=== PATIENT | female | born 1935 | race Caucasian/White ===

== ENCOUNTER 2020-07-29 08:49 | Emergency (ER) | payer MEDICARE, OTHER, SELFPAY ==
[2020-07-29 09:13] VITALS: BP 142/104; PULSE 64; PULSE 80; RESP 16; TEMP 36.4; O2SAT 100; O2SAT 98; BMI 36.9
--- NOTE | 2020-07-29 09:21 | CT_ITS ---
EXAMINATION: CT CERVICAL SPINE WITHOUT CONTRAST CLINICAL INFORMATION: Neck pain. Evaluate for arthritis or fracture. COMPARISON: Previous CT scans March and May 2020 TECHNIQUE: Axial images through the cervical spine without contrast. Sagittal and coronal reconstructions on the technologist workstation were performed. Patient dose 4 3 7 mg/cm. This CT examination was performed using dose optimization techniques as appropriate, variously including the following: *Automated exposure control *Adjustment of mA and/or kV according to patient size (this includes techniques or standardized protocols for targeted exams where dose is matched to indication/reason for exam; i.e. extremities or head) *Use of iterative reconstruction technique DLP: 437 mGy-cm FINDINGS: There is increased cervical kyphosis. No fracture or dislocation is seen. There is a posterior element fusion with cerclage wires at C4, C5 and C6. There is ankylosis and bony fusion at C4-C5, C5-C6 and C6-C7. There is mild 2 mm anterior subluxation of C2 with respect to C3 and C3 with respect to C4 that is unchanged. There is degenerative spondylosis and degenerative disc disease at C2-C3, C3-C4, and C7-T1. There are degenerative changes at the C1 dens articulation. Prevertebral soft tissues are normal. There is shotty cervical lymphadenopathy. The right jugular vein is prominent. There is medial course of the internal carotid arteries. The visualized lung apices are clear. IMPRESSION: Postsurgical and degenerative changes similar to recent exams.
--- NOTE | 2020-07-29 09:21 | XR_ITS ---
EXAMINATION: XR THORACIC SPINE CLINICAL INFORMATION: Upper back pain. COMPARISON: CT cervical spine 06/16/2020 TECHNIQUE: 3 views of the thoracic spine were obtained. FINDINGS: There is normal thoracic segmentation with 12 rib-bearing thoracic vertebrae of normal height and normal thoracic kyphosis. There are multilevel degenerative disc changes with upper and lower thoracic disc narrowing and vertebral spurring. There is no vertebral compression, spondylolisthesis, destructive process, spondylolisthesis, or paraspinal soft tissue swelling. IMPRESSION: Multilevel degenerative disc changes. No thoracic vertebral compression, spondylolisthesis, destructive process.
[2020-07-29] MEDS: oxyCODONE HCl Immed Release 5 MG TABLET PO (09:30)
[2020-07-29] MEDS: Cyclobenzaprine HCl 5 MG TABLET PO (09:30)
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
--- NOTE | 2020-07-29 10:00 | PC.NURSE ---
PT ALERT AND ORIENTED X4. SKIN WPD. RESPIRATIONS EVEN AND NON LABORED. REPORTS NECK PAIN HAS DECREASED FROM 10/10 TO 3/10 POST FLEXERIL AND OXYCODONE. DENIES ANY OTHER PAIN OR DISCOMFORT. AWAITING CT SCAN.
[2020-07-29 10:24] VITALS: BP 126/54; PULSE 64; RESP 14; O2SAT 97
--- NOTE | 2020-07-29 10:45 | PC.NURSE ---
PT OFF TO CT
[2020-07-29 11:56] VITALS: BP 149/59; PULSE 67; RESP 16; TEMP 36.7; O2SAT 95
== END 2020-07-29 13:29 | disposition home or self-care (01) ==
PROVIDERS: Emergency Provider Emergency Medicine; PCP Internal Medicine
DX: M54.12 Radiculopathy, cervical region (principal); T20.27XA Burn of second degree of neck, initial encounter; T31.0 Burns involving less than 10% of body surface; X11.8XXA Contact with other hot tap-water, initial encounter; I10 Essential (primary) hypertension; Y93.9 Activity, unspecified; Y92.019 Unspecified place in single-family (private) house as the place of occurrence of the external cause; Y99.9 Unspecified external cause status
CPT/HCPCS: 16020; 72072; 72125; 90471; 90715; 99284

== ENCOUNTER → 2021-01-01 10:56 | Outpatient (BNVA) | payer MEDICARE, SELFPAY | PROVIDERS: PCP Internal Medicine; Visit Provider Anesthesiology | DX: M96.1 Postlaminectomy syndrome, not elsewhere classified (principal); M54.2 Cervicalgia; M47.812 Spondylosis without myelopathy or radiculopathy, cervical region; G89.4 Chronic pain syndrome; Z79.899 Other long term (current) drug therapy | CPT/HCPCS: 99202 ==

== ENCOUNTER 2021-01-20 13:36 | Outpatient (REF) | payer MEDICARE, OTHER, SELFPAY ==
[2021-01-20 14:14] LABS: Alanine Aminotransferase 12 U/L (0-31); Albumin Level 4.5 g/dL (3.5-5.0); Alkaline Phosphatase 71 U/L (39-117); Anion Gap 14 (12-20); Aspartate Amino Transferase 13 U/L (5-31); Bilirubin Total 0.4 mg/dL (0.0-1.0); Blood Urea Nitrogen 22 mg/dL (9-16); Calcium 9.5 mg/dL (8.4-10.2); Carbon Dioxide 25 mmol/L (22-29); Chloride 101 mmol/L (96-108); Cholesterol 182 mg/dL; Estimated Glomerular Filt Rate > 60; Glucose Random 117 mg/dL (60-115); HDL Cholesterol 76 mg/dL; LDL Cholesterol Calculated 81 mg/dl; Potassium 4.3 mmol/L (3.3-5.1); Sodium 136 mmol/L (135-145); Total Protein 7.8 g/dL (6.5-8.0); Triglycerides 127 mg/dL
[2021-01-20 14:33] LABS: Thyroid Stimulating Hormone 6.55 uIU/mL (0.32-4.0)
== END 2021-01-20 13:37 | disposition home or self-care (01) ==
LOC: HO.LNP 13:36
PROVIDERS: Visit Provider Internal Medicine
DX: E03.9 Hypothyroidism, unspecified (principal); F32.89 Other specified depressive episodes; G89.4 Chronic pain syndrome; I10 Essential (primary) hypertension
CPT/HCPCS: 80053; 80061; 84443

== ENCOUNTER 2021-01-22 13:49 | Emergency (ER) | payer MEDICARE, OTHER, SELFPAY ==
[2021-01-22 14:11] VITALS: BP 111/47; PULSE 77; RESP 18; TEMP 36.6; O2SAT 99; BMI 38.0
--- NOTE | 2021-01-22 15:03 | ED_ITS ---
HPI - General Adult General Chief complaint: Neck Pain/Injury Stated complaint: NECK PAIN Time Seen by Provider: 01/22/21 14:28 Source: patient Mode of arrival: ambulatory Limitations: no limitations History of Present Illness HPI narrative: 85-year-old female with a history of chronic neck pain with chronic pain syndrome who is brought to emergency department by her [id number] for evaluation of neck pain. The patient states that she has been having neck pain since 1994 after she had a neck surgery. She states that over the past 2 weeks the pain has become severe. She states that the pain starts at the bottom her neck and radiates the top of her head. She describes the pain as a constant, dull ache which is worse with movement. She denies any numbness or weakness of her extremities. She denied fever or chills. She states that she has been taking her medications as prescribed by her doctor with no relief of her pain. The patient's [id number], Fiona told me that the patient has not been eating and drinking well over the past 2 weeks. Her daughter was concerned the patient may be depressed. The patient did make statements like she wants to however when I asked the patient she denies being suicidal at this time. The [id number] states that the patient been taking more lorazepam and prescribe since she ran out of her prescription early and cannot get her prescription refilled who later in the month. The patient apparently did have a recent ER visit at [facility] where the patient had CT scan and MRI of the neck and there was no acute process found. Related Data Previous Rx's Medication Instructions Recorded cephalexin [Keflex] 500 mg PO Q6H #28 cap 07/29/20 oxycodone-acetaminophen [Percocet] 1 tab PO Q8H PRN #15 tab 07/29/20 oxycodone-acetaminophen [Percocet] 1 tab PO Q8H PRN #15 tab 07/29/20 prednisone 40 mg PO DAILY #10 tab 07/29/20 silver sulfadiazine [Silvadene] 1 applic TOPICAL BID #50 g 07/29/20 lidocaine 1 patch TOPICAL DAILY #15 ea 01/22/21 Allergies Allergy/AdvReac Type Severity Reaction Status Date / Time No Known Allergies Allergy Verified 01/01/21 11:12 Review of Systems Review of Systems: Yes all other systems are reviewed and are negative PMFSH Past Medical History [facility] Narrative: The patient lives alone at home. She has 2 sons and 2 daughter in laws that check in on her frequently. The patient denies tobacco, alcohol and drug use. Medical History Cervicalgia Chronic neck pain Chronic pain syndrome Hypertension Postlaminectomy syndrome of cervical region Spondylosis of cervical joint without myelopathy Surgical History H/O neck surgery Social History Social History Alcohol intake: never Smoking Status: Never smoker Advance Directives: No Advance Directives Information Provided: No Physical Exam Vital Signs: Vital Signs: Last Vital Signs Temp 97.8 F 01/22/21 14:11 Pulse 77 01/22/21 14:11 Resp 18 01/22/21 14:11 BP 111/47 L 01/22/21 14:11 Pulse Ox 99 01/22/21 14:11 Body Mass Index 38.0 Const: General: cooperative Orientation/consciousness: oriented to person and oriented to place Limitations: no limitations HENMT: Head: Yes normal to inspection, Yes normocephalic and Yes atraumatic Ears: external ears normal General nose exam: Normal external nose present Face and sinus: Yes normal facial exam Mouth: Normal oral and palatal mucosa present Throat: Yes posterior oropharynx normal Eyes: Periorbital: periorbital findings normal Eyelids: Yes eyelids normal Conjunctivae: conjunctivae normal Sclerae: sclerae normal Corneas: corneas normal Pupils: Equal, round and reactive pupils present Direct Ophthalmoscopy: normal light reflex Neck: Neck: Yes full ROM, Yes no lymphadenopathy, Yes no meningeal signs, Yes trachea midline, Yes supple and Yes tender (Trapezius muscles bilaterally, no spasm) Chest: Chest palpation & inspection: normal inspection of the chest and normal palpation of entire chest wall Resp: Effort & Inspection: normal respiratory effort and able to speak in complete sentences Auscultation: clear to auscultation bilaterally Cardio: Rate: regular rate Rhythm: regular rhythm Heart sounds: S1 normal heart sound present, S2 normal heart sound present and no murmurs GI: Inspection: Yes normal to inspection Palpation (GI): Soft to palpation, nontender, no guarding, not rigid and No hepatosplenomegaly present : General: Yes no CVA tenderness Back/Spine/Pelvis: Back: no CVA tenderness Cervical Spine: normal cervical lordosis Thoracic/Lumbar Spine: thoracic and lumbar spine normal to inspection Skin: Lesions: no lesions Rashes: no rashes Wounds: no wounds Neuro: General: oriented to person, oriented to place and no meningeal signs Cranial nerves: Yes CN's II-XII intact bilaterally and Yes Equal, round and reactive pupils present Cognition (Neuro): normal cognition Motor exam (neuro): 5/5 motor strength present throughout Extrem: General: Yes normal to inspection and Yes full ROM Psych: Appearance: well kempt Mental Status: mental status grossly normal Speech and movement: Normal speech and movement present Affect: normal affect Attitude: cooperative Thought process: Normal thought process present Thought content: Normal thought content present Course Course Course Narrative: 85-year-old female with a history of chronic back pain presents emergency department for evaluation of increased neck pain x2 weeks. Physical examination did reveal tenderness with palpation of the trapezius muscles bilaterally otherwise was unremarkable. The patient's presentation is consistent with her chronic pain syndrome. I did discuss this with the patient and with the patient's daughter. Patient was advised to continue taking her pain medications as prescribed by her doctor. She was given a prescription for lidocaine patch to apply to her neck to see if this helps improve her pain. Patient will be discharged home and was advised to follow-up with her PCP for re-evaluation. Discharge Plan Discharge Clinical Impression: Acute neck pain, Chronic cervical pain Patient Disposition: Home, Self-Care Instructions: Acute Neck Pain (ED) Additional Instructions: Neck Pain Discharge Instructions: Take Tyleno(acetaminophen) 500 mg pills, 2 pills every 4 hours as needed for p ain. Continue taking your other pain medications and muscle relaxants as prescribed by your doctor. Apply ice for 15 minutes to the area that hurts on your back, then apply a heating a pad on low for 15 minutes. Do this 4-6 times a day to help reduce the pain in your back. Continue with normal activities as tolerated since staying in bed and not moving around will make your pain worse. Apply the lidocaine patches once a day to the neck in the area where it hurts, leave the patch on for 12 hours and remove it. Please return to the Emergency Department or see your doctor immediately if your symptoms get worse or if you develop any new symptoms that are concerning you. Follow up with your doctor in 2 day. Please read the other printed discharge instructions on neck pain. Prescriptions: New lidocaine 5 % adhesive patch,medicated 1 patch topical DAILY Qty: 15 RF: 0 No Action cephalexin [Keflex] 500 mg capsule 500 mg PO Q6H Qty: 28 RF: 0 oxycodone-acetaminophen [Percocet] 5-325 mg tablet 1 tab PO Q8H PRN (Reason: pain) Qty: 15 RF: 0 prednisone 20 mg tablet 40 mg PO DAILY Qty: 10 RF: 0 oxycodone-acetaminophen [Percocet] 5-325 mg tablet 1 tab PO Q8H PRN (Reason: pain) Qty: 15 RF: 0 silver sulfadiazine [Silvadene] 1 % cream 1 applic topical BID Qty: 50 RF: 0
== END 2021-01-22 17:11 | disposition home or self-care (01) ==
PROVIDERS: Emergency Provider Emergency Medicine Emergency Medical Services; PCP Internal Medicine
DX: S16.1XXA Strain of muscle, fascia and tendon at neck level, initial encounter (principal); M54.2 Cervicalgia; G44.309 Post-traumatic headache, unspecified, not intractable; G89.4 Chronic pain syndrome; X58.XXXA Exposure to other specified factors, initial encounter; Y93.9 Activity, unspecified; Y92.9 Unspecified place or not applicable; Y99.9 Unspecified external cause status; Z79.899 Other long term (current) drug therapy
CPT/HCPCS: 99283

== ENCOUNTER 2021-03-11 06:18 | Outpatient (REF) | payer MEDICARE, MEDICAID, SELFPAY ==
--- NOTE | ~2021-03-11 | FL_ITS ---
EXAMINATION: XR FLUOROSCOPY WITH IMAGES CLINICAL INFORMATION: M47.812 - Spondylosis without myelopathy or radiculopathy COMPARISON: CT cervical spine 07/29/2020 TECHNIQUE: Fluoroscopy performed by Perla Meza NP. Fluoroscopy time: 0.5 minutes DAP: 2.69 Gycm2 Images: 6 FINDINGS: There are 3 spinal needles overlying left lateral masses and 3 spinal needles overlying right lateral masses in region of C4-C6. There is contrast in the respective nerve sheaths with some transforaminal epidural extension. No visible vascular communication. There are postsurgical changes again noted with cerclage wire overlying the posterior elements C4-C6. FL/FL guidance in treatment room IMPRESSION: Fluoroscopy for pain management procedures.
== END 2021-03-11 06:19 | disposition home or self-care (01) ==
LOC: HO.RADIR 06:18
PROVIDERS: Visit Provider Anesthesiology
DX: M47.812 Spondylosis without myelopathy or radiculopathy, cervical region (principal); M96.1 Postlaminectomy syndrome, not elsewhere classified; M54.2 Cervicalgia; G89.4 Chronic pain syndrome
CPT/HCPCS: 64490; 64491; 64492; J1100; J3300; Q9967

== ENCOUNTER → 2021-04-14 09:23 | Outpatient (BNVA) | payer MEDICARE, SELFPAY | PROVIDERS: PCP Internal Medicine; Visit Provider Anesthesiology | DX: M96.1 Postlaminectomy syndrome, not elsewhere classified (principal); M54.2 Cervicalgia; M47.812 Spondylosis without myelopathy or radiculopathy, cervical region; G89.4 Chronic pain syndrome | CPT/HCPCS: 99212 ==

== ENCOUNTER 2021-05-20 06:10 | Outpatient (REF) | payer MEDICARE, OTHER, SELFPAY ==
--- NOTE | ~2021-05-20 | FL_ITS ---
EXAMINATION: XR FLUOROSCOPY WITH IMAGES CLINICAL INFORMATION: M47.812 - Spondylosis without myelopathy or radiculopathy COMPARISON: CT cervical spine 07/29/2020 TECHNIQUE: Fluoroscopy performed by Perla Meza NP. Fluoroscopy time: 0.8 minutes DAP: 2.97 Gycm2 Images: 6 FINDINGS: There are spinal needles overlying the bilateral lower 3 cervical neural foramen with some contrast in the paraspinal soft tissues and nerve sheaths. No vascular communication. Again, there are post surgical changes with wiring posterior elements. FL/FL guidance in treatment room IMPRESSION: Fluoroscopy for pain management procedures.
== END 2021-05-20 06:11 | disposition home or self-care (01) ==
LOC: HO.RADIR 06:10
PROVIDERS: Visit Provider Anesthesiology
DX: M47.812 Spondylosis without myelopathy or radiculopathy, cervical region (principal); M96.1 Postlaminectomy syndrome, not elsewhere classified; M54.2 Cervicalgia; G89.4 Chronic pain syndrome
CPT/HCPCS: 64490; 64491; J3300; Q9967

== ENCOUNTER 2021-05-20 11:53 | Emergency (ER) | payer MEDICARE, OTHER, SELFPAY ==
[2021-05-20 12:05] VITALS: BP 156/70; PULSE 76; RESP 14; TEMP 36.6; O2SAT 99; BMI 34.2
--- NOTE | 2021-05-20 12:20 | ED.GENADULT ---
HPI - General Adult General Chief complaint: General Medical Stated complaint: depression Time Seen by Provider: 05/20/21 12:20 Source: patient Mode of arrival: other (from short stay surgery) Limitations: other (poor historian) History of Present Illness HPI narrative: chronic neck pain scheduled for cervical medial branch block told staff she had increased depression because her pain is getting bad, patient reports if she doesn't have the procedure she will feel like she can't go on with the pain, no active plan, reportedly had bugs on her and was showered - patient denies this to me but obviously HC workers saw it, she lives alone complaint: depression Onset (ago): year(s) Location: neck Severity: moderate Quality: stabbing Pain Consistency: constant Relieving factors: none Exacerbating factors: movement Associated symptoms: other (depressed due to her chronic pain) Treatments prior to arrival: none Related Data Previous Rx's Medication Instructions Recorded cephalexin 500 mg capsule (Keflex) 500 mg PO Q6H #28 cap 07/29/20 oxycodone-acetaminophen 5 mg-325 1 tab PO Q8H PRN #15 tab 1012/20 mg tablet (Percocet) oxycodone-acetaminophen 5 mg-325 1 tab PO Q8H PRN #15 tab 10/12/20 mg tablet (Percocet) prednisone 20 mg tablet 40 mg PO DAILY #10 tab 07/29/20 silver sulfadiazine 1 % topical 1 applic TOPICAL BID #50 g 07/29/20 cream (Silvadene) lidocaine 5 % topical patch 1 patch TOPICAL DAILY #15 ea 01/22/21 Allergies Allergy/AdvReac Type Severity Reaction Status Date / Time No Known Allergies Allergy Verified 04/14/21 09:44 Review of Systems Review of Systems: Constitutional : No Weight loss, No Fever, No Chills, No Fatigue, No Malaise ENT/Mouth : No sore throat, No Rhinorrhea, pos neck pain Eyes: No Eye Pain, No Swelling, No Redness Cardiovascular : No Chest Pain, No SOB, No Dyspnea on Exertion, No Orthopnea, No Edema, No Palpitations Respiratory : No Cough, No Sputum, No Wheezing Gastrointestinal : No Nausea, No Vomiting, No Diarrhea, No Constipation, No abdominal Pain, No Hematochezia, No Melena Genitourinary : No Dysuria, No Urinary Frequency, No Hematuria, Musculoskeletal : No joint pain, No Myalgias, No Joint Swelling Skin : No Skin Lesions, No rash Neuro : No Weakness, No Numbness, No Dizziness, No Headache Psych : No Anxiety/Panic, pos Depression Heme/Lymph: No Bruising, No Bleeding,No Lymphadenopathy Endocrine : No Polyuria, No Polydipsia All other systems reviewed and are negative [facility] Past Medical History Attestation statement: The following information was validated with the patient. Medical History Cervicalgia Chronic neck pain Chronic pain syndrome Hypertension Postlaminectomy syndrome of cervical region Spondylosis of cervical joint without myelopathy Surgical History H/O neck surgery Social History Social History (Updated 05/20/21 @ 12:34 by Rekha Cruz DO) Alcohol intake: never Patient Tobacco Use Status: Never used Tobacco Advance Directives: No Advance Directives Information Provided: Yes Physical Exam Vital Signs: Vital Signs: Last Vital Signs Temp 98.2 F 05/20/21 12:41 Pulse 71 05/20/21 12:41 Resp 15 05/20/21 12:41 BP 141/70 H 05/20/21 12:41 Pulse Ox 100 05/20/21 12:41 Body Mass Index 34.2 Appearance: Alert. Oriented X3. No acute distress. Anxious Eyes: Pupils equal, round and reactive to light. ENT: Pharynx normal. Neck: Normal inspection. Neck supple. CVS: Normal heart rate and rhythm. Pulses normal. Respiratory: No respiratory distress. Breath sounds normal. Abdomen: Soft and non-tender. Skin: Skin warm and dry. Normal skin color. Normal skin turgor. Extremities: No lower extremity edema. No calf ttp Neuro: Oriented X 3. No motor deficit. No sensory deficit. 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 supervisor possible fleas and ants I DO NOT BELIEVE SHE IS SUICIDAL SHE STATES SHE IS JUST UPSET AND DEPRESSED BECAUSE SHE WANTS HER PAIN TREATED, SHE HAS NO PLAN, SHE WANTS HER PROCEDURE DONE, I DO NOT FEEL SHE IS GOING TO KILL HERSELF, HER SKIN HAS NO BITES AND SHE IS NEUROLOGICALLY INTACT Medical Decision Making [facility] Narrative Medical decision making narrative: 85 yo female with chronic neck pain due to branch block today brought from short stay due to bug infestation which I cannot see post shower and clothes are bagged, no wounds obviously, also stated she was depressed due to her pain but meant to say she didn't want to live with the pain, she has no active suicide plan, CM/CARE team and RN pattern chain maker supervisor involved I do not feel she is actively suicidal on presentation she is GCS 15. Discharge Plan Discharge Clinical Impression: Cervicalgia Patient Disposition: Home, Self-Care Instructions: Chronic Neck Pain (DC) Additional Instructions: return to ED for any worsening symptoms or concerns Prescriptions: No Action cephalexin [Keflex] 500 mg capsule 500 mg PO Q6H Qty: 28 RF: 0 oxycodone-acetaminophen [Percocet] 5-325 mg tablet 1 tab PO Q8H PRN (Reason: pain) Qty: 15 RF: 0 prednisone 20 mg tablet 40 mg PO DAILY Qty: 10 RF: 0 oxycodone-acetaminophen [Percocet] 5-325 mg tablet 1 tab PO Q8H PRN (Reason: pain) Qty: 15 RF: 0 silver sulfadiazine [Silvadene] 1 % cream 1 applic topical BID Qty: 50 RF: 0 lidocaine 5 % adhesive patch,medicated 1 patch topical DAILY Qty: 15 RF: 0
[2021-05-20 12:41] VITALS: BP 141/70; PULSE 71; RESP 15; TEMP 36.8; O2SAT 100
[2021-05-20 13:03] LABS: Glucose Urine UA NEG (NEG); Leukocyte Esterase Urine NEG (NEG); Nitrite Urine NEG (NEG); PH 5.5 (5.0-8.0); Specific Gravity - Urine 1.015 (1.005-1.025); Urine Blood NEG (NEG); Urine Ketones NEG (NEG); Urine Protein NEG (NEG-TRACE)
[2021-05-20 13:08] LABS: Appearance Urine CLEAR; Color Urine YELLOW
== END 2021-05-20 13:45 | disposition home or self-care (01) ==
PROVIDERS: Emergency Provider Emergency Medicine; PCP Internal Medicine
DX: F33.1 Major depressive disorder, recurrent, moderate (principal); M54.2 Cervicalgia; Z79.899 Other long term (current) drug therapy
CPT/HCPCS: 81003; 99283

== ENCOUNTER 2021-05-24 11:02 | Emergency (ER) | payer MEDICARE, OTHER, SELFPAY ==
[2021-05-24 11:26] VITALS: BP 145/82; PULSE 79; RESP 16; TEMP 36.9; O2SAT 98; BMI 30.7
--- NOTE | 2021-05-24 11:47 | ED.BACK ---
HPI - Back Pain/Injury General Chief Complaint: Back Pain/Injury Stated Complaint: Back Pain post cortisone shot; SI Time Seen by Provider: 05/24/21 11:43 Source: patient Mode of arrival: ambulatory Limitations: no limitations History of Present Illness HPI Narrative: 85 y/o female with history of chronic neck followed by Pain Management s/p recent C4-C6 therapeutic bupivacaine/kenalog infections on 05/20 who presents to the ER with ongoing pain despite her home pain medications. She is currently taking motrin and tylenol around the clock. She states they are not helping with the pain. She denies radiation of pain but her arms are always feeling heavy. No new injury. She has had neck pain for 30+ years and history of surgeries in the s and multiple injections. MD elicited complaint: other (acute on chronic neck pain) Onset (ago): year(s) Timing: constant Severity: severe Similar Symptoms Previously: Yes Quality: dull and aching Radiation: none Exacerbating factors: movement Relieving factors: none Context: unknown Associated symptoms: denies other symptoms Treatments prior to arrival: NSAIDS and acetaminophen Work related injury: No Related Data Previous Rx's Medication Instructions Recorded cephalexin 500 mg capsule (Keflex) 500 mg PO Q6H #28 cap 07/29/20 oxycodone-acetaminophen 5 mg-325 1 tab PO Q8H PRN #15 tab 07/29/20 mg tablet (Percocet) oxycodone-acetaminophen 5 mg-325 1 tab PO Q8H PRN #15 tab 12/20 mg tablet (Percocet) prednisone 20 mg tablet 40 mg PO DAILY #10 tab 07/29/20 silver sulfadiazine 1 % topical 1 applic TOPICAL BID #50 g 07/29/20 cream (Silvadene) lidocaine 5 % topical patch 1 patch TOPICAL DAILY #15 ea 01/22/21 hydrocodone 5 mg-acetaminophen 325 1 tab PO Q6H PRN #7 tab 05/24/21 mg tablet lidocaine 5 % topical patch 1 patch TOPICAL DAILY #15 ea 05/24/21 (Lidoderm) Allergies Allergy/AdvReac Type Severity Reaction Status Date / Time No Known Allergies Allergy Verified 04/14/21 09:44 Review of Systems Review of Systems: Constitutional: No Fever, No Chills Respiratory: No Cough, No Sputum, No Wheezing, No dyspnea Gastrointestinal: No Nausea, No Vomiting Musculoskeletal: + joint pain, + Myalgias Skin: No Skin Lesions, No rash Neuro: No Weakness, No Numbness, No Dizziness, No Headache Psych: + Anxiety/Panic, + Depression Heme/Lymph: No Bruising, No Lymphadenopathy PMFSH Past Medical History Medical History Cervicalgia Chronic neck pain Chronic pain syndrome Hypertension Postlaminectomy syndrome of cervical region Spondylosis of cervical joint without myelopathy Surgical History H/O neck surgery Social History Social History (Updated 05/20/21 @ 12:34 by Rekha Cruz DO) Alcohol intake: never Patient Tobacco Use Status: Never used Tobacco Advance Directives: Yes Advance Directives on File: Yes Advance Directives Date on File: 01/22/21 Physical Exam Vital Signs: Vital Signs: Last Vital Signs Temp 98.2 F 05/24/21 13:28 Pulse 82 05/24/21 13:28 Resp 16 05/24/21 13:28 BP 134/79 05/24/21 13:28 Pulse Ox 98 05/24/21 13:28 Body Mass Index 30.7 Appearance: Alert. Oriented X3. No acute distress. Eyes: Pupils equal, round and reactive to light. ENT: Pharynx normal. Neck: Normal inspection, well healed surgical scar Neck supple. No cervical spinal tenderness. No soft tissue tenderness. normal ROM CVS: Normal heart rate and rhythm. Pulses normal. Respiratory: No respiratory distress. Breath sounds normal. Skin: Skin warm and dry. Normal skin color. Normal skin turgor. No rashes. Extremities: No lower extremity edema. Neuro: Oriented X 3. No motor deficit. No sensory deficit. Equal commutator v ring assembler strength. Course Course Course Narrative: 85 y/o female presenting with acute on chronic non-traumatic neck pain. No improvement with recent injections by her pain specialist. She is desparate for any type of relief. She says she Can't live like this but denies being suicidal. RAILROAD CONDUCTOR reviewed. No narcotics prescribed since Jul 2020. Will give small dose of Vicoden now and reassess. Reevaluation(s) Reevaluation #1: Pain resolved with dose of Vicoden. Will give short course of vicoden until she can be re-evaluated by her doctors. Stable for discharge home. Importance of follow up with specialist discussed and patient expressed understanding. Critical Care Time Critical Care Time Critical Care Time: No Discharge Plan Discharge Clinical Impression: Cervicalgia Patient Disposition: Home, Self-Care Instructions: Chronic Neck Pain (DC) Additional Instructions: Follow up with your doctors early next week Take the prescribed medication as needed for severe pain Do not drive after taking this medication Continue taking ibuprofen and acetamenophen alternating around the clock for pain Prescriptions: New hydrocodone-acetaminophen 5-325 mg tablet 1 tab PO Q6H PRN (Reason: pain) Qty: 7 RF: 0 lidocaine [Lidoderm] 5 % adhesive patch,medicated 1 patch topical DAILY Qty: 15 RF: 0 No Action cephalexin [Keflex] 500 mg capsule 500 mg PO Q6H Qty: 28 RF: 0 oxycodone-acetaminophen [Percocet] 5-325 mg tablet 1 tab PO Q8H PRN (Reason: pain) Qty: 15 RF: 0 prednisone 20 mg tablet 40 mg PO DAILY Qty: 10 RF: 0 oxycodone-acetaminophen [Percocet] 5-325 mg tablet 1 tab PO Q8H PRN (Reason: pain) Qty: 15 RF: 0 silver sulfadiazine [Silvadene] 1 % cream 1 applic topical BID Qty: 50 RF: 0 lidocaine 5 % adhesive patch,medicated 1 patch topical DAILY Qty: 15 RF: 0
[2021-05-24] MEDS: Lidocaine 4 % Patch ADH..PATCH 1 PATCH TRANSDERMA (12:22)
[2021-05-24] MEDS: HYDROcodone Bit/Acetam 5/325 TABLET 1 TAB PO (12:23)
[2021-05-24 13:28] VITALS: BP 134/79; PULSE 82; RESP 16; TEMP 36.8; O2SAT 98
== END 2021-05-24 14:05 | disposition home or self-care (01) ==
PROVIDERS: Emergency Provider Emergency Medicine Emergency Medical Services; PCP Internal Medicine
DX: M54.2 Cervicalgia (principal); I10 Essential (primary) hypertension
CPT/HCPCS: 99283; 99284

== ENCOUNTER 2021-05-27 12:58 | Inpatient (IN) | payer MEDICARE, OTHER, SELFPAY ==
[2021-05-27] VITALS (9 sets, daily range): BP systolic 96–148; BP diastolic 44–78; PULSE 69–79; RESP 16–18; TEMP 36.2–36.6; O2SAT 97–100; BMI 25.7; BMI 26.6
--- NOTE | ~2021-05-27 | CT_ITS ---
EXAMINATION: CT HEAD/BRAIN WITHOUT CONTRAST CLINICAL INFORMATION: AMS COMPARISON: None. TECHNIQUE: CT scanning from base of skull to vertex performed without IV contrast administration. This CT examination was performed using dose optimization techniques as appropriate, variously including the following: *Automated exposure control *Adjustment of mA and/or kV according to patient size (this includes techniques or standardized protocols for targeted exams where dose is matched to indication/reason for exam; i.e. extremities or head) *Use of iterative reconstruction technique DLP: 652.28 mGy-cm. FINDINGS: No intracranial hemorrhage is identified. No abnormal mass effect or midline structure shift. No abnormal extra-axial fluid collection. There is diffuse prominence of ventricles, sulci, and cisterns consistent with generalized atrophy. Periventricular white matter low density seen consistent with microangiopathy. There are a few small low-density lesions seen within the basal ganglia bilaterally consistent with lacunar infarcts. The paranasal sinuses and mastoid air cells are well aerated. CT/CT cervical spine wo con IMPRESSION: No acute intracranial abnormality. Diffuse atrophy. Microangiopathy. EXAMINATION: CT OF THE CERVICAL SPINE CLINICAL INFORMATION: Neck pain COMPARISON: July 29, 2020. TECHNIQUE: Thin helical images with sagittal and coronal reformats. This CT examination was performed using dose optimization techniques as appropriate, variously including the following: *Automated exposure control *Adjustment of mA and/or kV according to patient size (this includes techniques or standardized protocols for targeted exams where dose is matched to indication/reason for exam; i.e. extremities or head) *Use of iterative reconstruction technique DOSE: DLP 488.79 mGy-cm FINDINGS: No abnormal prevertebral soft tissue swelling is seen. Paraspinal muscle fat planes maintained. No acute cervical spine fracture is noted. Cerclage wires are seen at C4, C5, and C6. There is ankylosis and bony fusion at C4-C5, C5-C6, and C6-C7. There is 2 mm of subluxation C3 C3 on C4. There is disc space narrowing seen within the upper thoracic spine. IMPRESSION: No acute cervical spine fracture. Cervical spondylosis as described with previous surgery..
--- NOTE | ~2021-05-27 | CT_ITS ---
EXAMINATION: CT ABDOMEN AND PELVIS WITHOUT CONTRAST CLINICAL INFORMATION: Abdominal pain. COMPARISON: Chest radiograph 05/27/2021 TECHNIQUE: Multidetector volumetric imaging was performed from the superior aspect of the liver through the pubic symphysis. Sagittal and coronal reformatted images were obtained on the technologist's workstation. No oral or intravenous contrast. This CT examination was performed using dose optimization techniques as appropriate, variously including the following: *Automated exposure control *Adjustment of mA and/or kV according to patient size (this includes techniques or standardized protocols for targeted exams where dose is matched to indication/reason for exam; i.e. extremities or head) *Use of iterative reconstruction technique DLP: 625 mGy-cm FINDINGS: LUNG BASES: Accentuated subpleural lines posterior bases without airspace consolidation or effusion. LIVER, GALLBLADDER, AND BILIARY TREE: The liver is normal in size and smooth in contour. There are a few isolated punctate calcified granulomata. Otherwise, no hepatic parenchymal lesion. No intrahepatic ductal dilatation. The gallbladder is unremarkable with no evidence of radiopaque gallstones, gallbladder wall thickening, or obvious pericholecystic inflammatory changes. PANCREAS: Unremarkable. SPLEEN: Normal in size. Scattered calcified granulomata. ADRENAL GLANDS: Mild fullness left adrenal without overt nodule or mass. Right adrenal unremarkable. KIDNEYS AND URETERS: The kidneys are normal in size, shape, and attenuation. No hydronephrosis, hydroureter, or calculi seen. No perinephric stranding. BLADDER: Unremarkable. GASTROINTESTINAL TRACT: There is no bowel obstruction or focal inflammatory changes seen in the bowel or mesentery. The appendix is not visualized with certainty. There are no inflammatory changes around the terminal ileum or cecum. There is no pneumatosis or free air. No ascites or fluid collection. ABDOMINAL WALL: Small fat-containing umbilical hernia, 2 cm. LYMPH NODES: No lymphadenopathy. VASCULAR: Unremarkable. PELVIC VISCERA: Unremarkable. OSSEOUS STRUCTURES: Bilateral L5 spondylolysis with grade 1-2 spondylolisthesis lumbosacral junction. Degenerative disc changes T12-L1 and L5-S1. CT/CT abdomen pelvis wo con IMPRESSION: 1. No bowel obstruction or acute inflammatory changes in abdomen or pelvis. 2. No biliary ductal dilatation, hydronephrosis, or perinephric stranding. 3. 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
--- NOTE | ~2021-05-27 | XR_ITS ---
EXAMINATION: XR CHEST CLINICAL INFORMATION: Shortness of breath COMPARISON: None TECHNIQUE: AP portable view of the chest was obtained. FINDINGS: No significant abnormality is noted involving the heart, lungs, mediastinum, bony thorax or soft tissues. XR/XR chest 1V IMPRESSION: No acute disease.
--- NOTE | 2021-05-27 13:32 | ED.GENADULT ---
HPI - General Adult General Chief complaint: General Medical Stated complaint: AMS Neck Pain Time Seen by Provider: 05/27/21 13:32 History of Present Illness HPI narrative: Patient is 85 years old presented today having neck pain. Patient was seen in the emergency department 2 days prior. Given Percocet and lidocaine patches. Patient went home and is now having continuing pain. Patient stated possible suicidal ideation. She stated she does not want to live anymore secondary to pain. There many ways to hurt herself. Patient denies any fever or chills. No coughing or congestion. Patient did not receive the coronavirus vaccine. Patient feels very weak. Patient was found with lots of feces on her back. She was unable to get up. She is complaining of pain. Related Data Previous Rx's Medication Instructions Recorded cephalexin 500 mg capsule (Keflex) 500 mg PO Q6H #28 cap 07/29/20 oxycodone-acetaminophen 5 mg-325 1 tab PO Q8H PRN #15 tab 1012/20 mg tablet (Percocet) oxycodone-acetaminophen 5 mg-325 1 tab PO Q8H PRN #15 tab 10/12/20 mg tablet (Percocet) prednisone 20 mg tablet 40 mg PO DAILY #10 tab 07/29/20 silver sulfadiazine 1 % topical 1 applic TOPICAL BID #50 g 07/29/20 cream (Silvadene) lidocaine 5 % topical patch 1 patch TOPICAL DAILY #15 ea 01/22/21 hydrocodone 5 mg-acetaminophen 325 1 tab PO Q6H PRN #7 tab 05/24/21 mg tablet lidocaine 5 % topical patch 1 patch TOPICAL DAILY #15 ea 05/24/21 (Lidoderm) Allergies Allergy/AdvReac Type Severity Reaction Status Date / Time No Known Allergies Allergy Verified 04/14/21 09:44 Review of Systems Review of Systems: Positive back pain Positive neck pain Positive generalized malaise No bowel or urinary incontinence. No focal weakness Yes all other systems are reviewed and are negative [facility] Past Medical History Attestation statement: The following information was validated with the patient. Medical History Cervicalgia Chronic neck pain Chronic pain syndrome Hypertension Postlaminectomy syndrome of cervical region Spondylosis of cervical joint without myelopathy Surgical History H/O neck surgery Social History Social History Alcohol intake: never Patient Tobacco Use Status: Never used Tobacco Advance Directives: Yes Advance Directives on File: Yes Advance Directives Date on File: 01/22/21 Physical Exam Vital Signs: Vital Signs: Last Vital Signs Temp 97.6 F 05/27/21 14:58 Pulse 69 05/27/21 16:27 Resp 16 05/27/21 16:27 BP 123/51 L 05/27/21 16:27 Pulse Ox 98 05/27/21 16:27 Body Mass Index 25.7 Appearance: Alert. Oriented X3. No acute distress. Eyes: Pupils equal, round and reactive to light. ENT: Pharynx normal. Neck: Normal inspection. Neck supple. No lymph nodes noted. No crepitus CVS: Normal heart rate and rhythm. Pulses normal. Normal S1 and S2 Respiratory: No respiratory distress. Breath sounds normal. No Wheezing. No rales Abdomen: Soft and nontender. No rigidity. No distention. good BS x4 Skin: Skin warm and dry. Normal skin color. Normal skin turgor. Extremities: No lower extremity edema. Neurovascular intact to all extremities. No Lacerations. No Rash Neuro: Oriented X 3. No motor deficit. No sensory deficit. Moving all extermities. No slurred speech Medical Decision Making MDM Narrative Medical decision making narrative: Patient complaining of diffuse spinal pain. CT scan of the head C-spine were grossly negative. Patient's has a significant elevation in white count. Urine grossly infected. Culture obtained antibiotics started. Patient's lactate is 1.4. There is no gross evidence of severe sepsis. Will hydrate. CT scan of the abdomen did not show any acute evidence of obstruction, kidney stones. Patient's creatinine significantly elevated likely secondary to dehydration. Creatinine is over 2 today. Baseline is normal. Chest x-ray did not show any focal infiltrate. Patient's case discussed with the hospitalist team. We will continue hydration antibiotic treatment. Currently in stable condition. Patient also has suicidal ideation. Currently is being evaluated with a sitter Lab Data Result diagrams: 05/27/21 14:48 05/27/21 14:48 Labs: Lab Results 05/27/21 05/27/21 05/27/21 Range/Units 14:43 14:48 14:48 WBC 29.0 H (4.8-10.8) X10*3/uL RBC 3.98 L (4.20-5.50) X10*6/uL Hgb 13.0 (12.0-16.0) g/dl Hct 38.8 (37-47) % MCV 97.5 (80-98) fL MCH 32.7 (27.0-33.0) pg MCHC 33.5 (31.0-35.0) g/dl RDW 13.2 (11.0-16.0) % Plt Count 559 H (160-400) X10*3/uL MPV 10.3 (9.4-12.3) fL Immature Gran % (Auto) 1.8 H (0.0-0.4) % Neut % (Auto) 86.6 H (45-73) % Lymph % (Auto) 6.8 L (20-40) % [place] % (Auto) 4.6 (2-11) % Eos % (Auto) 0.0 (0-4) % Baso % (Auto) 0.2 (0-2) % Lymph # (Auto) 2.0 (1.2-4.9) X10*3/uL [place] # (Auto) 1.3 H (0.1-1.2) X10*3/uL Eos # (Auto) 0.0 (0.0-0.4) X10*3/uL Baso # (Auto) 0.1 (0.0-0.2) X10*3/uL Abs Immat Gran (auto) 0.53 H (0.00-0.03) X10*3/uL Absolute Neuts (auto) 25.1 H (2.0-8.3) X10*3/uL Absolute Nucleated RBC 0.000 (0.0-0.012) X10*3/uL Nucleated RBC % (auto) 0.0 (0.0-0.2) /100WBC Smear Tech's Comments VERIFIED PT 12.0 (9.9-13.0) SEC INR 1.1 (0.9-1.1) Sodium (135-145) mmol/L Potassium (3.3-5.1) mmol/L Chloride (96-108) mmol/L Carbon Dioxide (22-29) mmol/L Anion Gap (12-20) BUN (9-16) mg/dL Creatinine (0.5-1.4) mg/dL Estim Creat Clear Calc Estimated GFR Random Glucose (60-115) mg/dL Lactic Acid (0.5-2.0) mmol/L Calcium (8.4-10.2) mg/dL Total Bilirubin (0.0-1.0) mg/dL Direct Bilirubin (0.0-0.5) mg/dL AST (5-31) U/L ALT (0-31) U/L Alkaline Phosphatase (39-117) U/L Total Creatine Kinase (26-140) U/L Total Protein (6.5-8.0) g/dL Albumin (3.5-5.0) g/dL Urine Color DARK YELLOW Urine Appearance CLOUDY Urine pH 5.5 (5.0-8.0) Ur Specific [place] >= 1.030 H (1.005-1.025) Urine Protein 1+ H (NEG-TRACE) MG/DL Urine Glucose (UA) NEG (NEG) MG/DL Urine Ketones NEG (NEG) MG/DL Urine Blood NEG (NEG) Urine Nitrite NEG (NEG) Ur Leukocyte Esterase 2+ H (NEG) Urine RBC 1-4 (0) /HPF Urine WBC 76-150 H (0-4) /HPF Ur Squamous Epith Cells 1+ /LPF Urine Bacteria TRACE /LPF Urine Mucus 1+ /LPF Salicylates (15-30) mg/dL Acetaminophen (<30) mcg/mL Coronavirus (PCR) (Negative) Influenza Type A (PCR) (Negative) Influenza Type B (PCR) (Negative) RSV RNA Qual (PCR) (Negative) 05/27/21 05/27/21 05/27/21 Range/Units 14:48 14:48 14:48 WBC (4.8-10.8) X10*3/uL RBC (4.20-5.50) X10*6/uL Hgb (12.0-16.0) g/dl Hct (37-47) % MCV (80-98) fL MCH (27.0-33.0) pg MCHC (31.0-35.0) g/dl RDW (11.0-16.0) % Plt Count (160-400) X10*3/uL MPV (9.4-12.3) fL Immature Gran % (Auto) (0.0-0.4) % Neut % (Auto) (45-73) % Lymph % (Auto) (20-40) % [place] % (Auto) (2-11) % Eos % (Auto) (0-4) % Baso % (Auto) (0-2) % Lymph # (Auto) (1.2-4.9) X10*3/uL [place] # (Auto) (0.1-1.2) X10*3/uL Eos # (Auto) (0.0-0.4) X10*3/uL Baso # (Auto) (0.0-0.2) X10*3/uL Abs Immat Gran (auto) (0.00-0.03) X10*3/uL Absolute Neuts (auto) (2.0-8.3) X10*3/uL Absolute Nucleated RBC (0.0-0.012) X10*3/uL Nucleated RBC % (auto) (0.0-0.2) /100WBC Smear Tech's Comments PT (9.9-13.0) SEC INR (0.9-1.1) Sodium 132 L (135-145) mmol/L Potassium 5.4 H D (3.3-5.1) mmol/L Chloride 105 (96-108) mmol/L Carbon Dioxide 13 L (22-29) mmol/L Anion Gap 19 (12-20) BUN 75 H D (9-16) mg/dL Creatinine 2.96 H (0.5-1.4) mg/dL Estim Creat Clear Calc 13.6 Estimated GFR 15 Random Glucose 117 H (60-115) mg/dL Lactic Acid 1.4 (0.5-2.0) mmol/L Calcium 9.8 (8.4-10.2) mg/dL Total Bilirubin 0.4 (0.0-1.0) mg/dL Direct Bilirubin 0.2 (0.0-0.5) mg/dL AST 13 (5-31) U/L ALT 14 (0-31) U/L Alkaline Phosphatase 62 (39-117) U/L Total Creatine Kinase 111 (26-140) U/L Total Protein 7.9 (6.5-8.0) g/dL Albumin 4.7 (3.5-5.0) g/dL Urine Color Urine Appearance Urine pH (5.0-8.0) Ur Specific [place] (1.005-1.025) Urine Protein (NEG-TRACE) MG/DL Urine Glucose (UA) (NEG) MG/DL Urine Ketones (NEG) MG/DL Urine Blood (NEG) Urine Nitrite (NEG) Ur Leukocyte Esterase (NEG) Urine RBC (0) /HPF Urine WBC (0-4) /HPF Ur Squamous Epith Cells /LPF Urine Bacteria /LPF Urine Mucus /LPF Salicylates < 5.0 L (15-30) mg/dL Acetaminophen < 1 (<30) mcg/mL Coronavirus (PCR) NEGATIVE (Negative) Influenza Type A (PCR) NEGATIVE (Negative) Influenza Type B (PCR) NEGATIVE (Negative) RSV RNA Qual (PCR) NEGATIVE (Negative) Critical Care Time Critical Care Time Critical Care Time: Yes Total Critical Care Time: 40 Attestation: I have personally provided 40 minutes of critical care time exclusive of time spent on separately billable procedures. Time includes review of lab data, radiology results, discussion with consultants, and monitoring for potential decompensation. Interventions were performed as documented above Discharge Plan Discharge Clinical Impression: Acute renal failure, Acute dehydration, Acute UTI Patient Disposition: Admitted As Inpatient
--- NOTE | 2021-05-27 14:13 | ECG_ITS ---
Test Reason : AMS Blood Pressure : / mmHG Vent. Rate : 076 BPM Atrial Rate : 076 BPM P-R Int : 160 ms QRS Dur : 084 ms QT Int : 346 ms P-R-T Axes : 058 060 104 degrees QTc Int : 389 ms Normal sinus rhythm Nonspecific ST and T wave abnormality Abnormal ECG No previous ECGs available Referred By: Laila Wells Electronically Signed By:ROMAIN ABEL MD
[2021-05-27] MEDS: 0.9 % Sodium Chloride 1,000 ML 999 ML IV (14:43)
[2021-05-27 15:01] LABS: Glucose Urine UA NEG (NEG); Leukocyte Esterase Urine 2+ (NEG); Nitrite Urine NEG (NEG); PH 5.5 (5.0-8.0); Specific Gravity - Urine >= 1.030 (1.005-1.025); UACC Culture Trigger YES; Urine Blood NEG (NEG); Urine Ketones NEG (NEG); Urine Protein 1+ MG/DL (NEG-TRACE)
[2021-05-27 15:03] LABS: Basophils Absolute Auto 0.1 X10*3/uL (0.0-0.2); Basophils Percent Auto 0.2 % (0-2); Hematocrit 38.8 % (37-47); Imm Gran Abs Auto 0.53 X10*3/uL (0.00-0.03); Imm Gran Pct Auto 1.8 % (0.0-0.4); Lymphocytes Percent Auto 6.8 % (20-40); MANUAL DIFF FLAG SCAN; Mean Corpuscular HGB Conc 33.5 g/dl (31.0-35.0); Mean Corpuscular Hemoglobin 32.7 pg (27.0-33.0); Mean Corpuscular Volume 97.5 fL (80-98); Mean Platelet Volume 10.3 fL (9.4-12.3); Monocytes Absolute Auto 1.3 X10*3/uL (0.1-1.2); Monocytes Percent Auto 4.6 % (2-11); Neutrophils Absolute Auto 25.1 X10*3/uL (2.0-8.3); Neutrophils Percent Auto 86.6 % (45-73); Platelet Count 559 X10*3/uL (160-400); Red Blood Count 3.98 X10*6/uL (4.20-5.50); Red Cell Distribution Width 13.2 % (11.0-16.0); SCAN SMEAR FLAG 1
[2021-05-27 15:04] LABS: Appearance Urine CLOUDY; Color Urine DARK YELLOW
[2021-05-27 15:06] LABS: INTERNATIONAL NORM RATIO 1.1 (0.9-1.1)
[2021-05-27 15:13] LABS: Bacteria Urine TRACE /LPF; Mucus Urine 1+ /LPF; Squamous Epithelial Cell Urine 1+ /LPF
[2021-05-27 15:28] LABS: Lactic Acid 1.4 mmol/L (0.5-2.0)
[2021-05-27 15:33] LABS: Acetaminophen LAB < 1 mcg/mL (<30); Alanine Aminotransferase 14 U/L (0-31); Albumin Level 4.7 g/dL (3.5-5.0); Alkaline Phosphatase 62 U/L (39-117); Anion Gap 19 (12-20); Aspartate Amino Transferase 13 U/L (5-31); Bilirubin Direct 0.2 mg/dL (0.0-0.5); Bilirubin Total 0.4 mg/dL (0.0-1.0); Blood Urea Nitrogen 75 mg/dL (9-16); Calcium 9.8 mg/dL (8.4-10.2); Carbon Dioxide 13 mmol/L (22-29); Chloride 105 mmol/L (96-108); Creatinine Clr Calc Pharmacy 13.6; Estimated Glomerular Filt Rate 15; Glucose Random 117 mg/dL (60-115); Potassium 5.4 mmol/L (3.3-5.1); Salicylate < 5.0 mg/dL (15-30); Sodium 132 mmol/L (135-145); Total Protein 7.9 g/dL (6.5-8.0)
[2021-05-27 15:48] LABS: Influenza A PCR NEGATIVE (Negative); Influenza B PCR NEGATIVE (Negative); Resp Syncy Virus RNA Qual PCR NEGATIVE (Negative); SARS COV2 PCR INHOUSE NEGATIVE (Negative)
[2021-05-27 15:51] LABS: SLIDE REVIEW VERIFIED
[2021-05-27] MEDS: 0.9 % Sodium Chloride 500 ML 999 ML IV (16:24)
[2021-05-27] MEDS: cefTRIAXone sodium 1 GM in 0.9 % Sodium Chloride 50 ML IV (16:24)
--- NOTE | 2021-05-27 17:10 | MHC.CARE ---
Please consult CARE Team when medically cleared due to reported SI statements.
[2021-05-27] MEDS: HYDROmorphone HCl 0.5 MG/0.5 ML SYRINGE IVPUSH (17:45)
--- NOTE | 2021-05-27 18:37 | PHA.MEDREC ---
Pharmacy Consult ? Medication Reconciliation Pharmacy has completed the medication reconciliation.
[2021-05-28] VITALS (7 sets, daily range): BP systolic 126–145; BP diastolic 58–82; PULSE 77–104; RESP 16–20; TEMP 35.9–36.9; O2SAT 97–100
[2021-05-28] MEDS: 0.9 % Sodium Chloride Flush 3 ML SYRINGE IVFLUSH ×3 (00:06→21:36)
[2021-05-28] MEDS: 0.9 % Sodium Chloride 1,000 ML 100 ML IVCONT ×2 (00:06→08:47)
[2021-05-28] MEDS: HYDROcodone Bit/Acetam 5/325 TABLET 1 TAB PO ×3 (00:07→14:26)
[2021-05-28] MEDS: Heparin Sodium,Porcine 5,000 UNIT/ML VIAL 5000 UNIT SUBCUT ×3 (00:07→21:33)
[2021-05-28] MEDS: LORazepam 0.5 MG TABLET PO ×3 (00:07→14:27)
--- NOTE | 2021-05-28 00:46 | PM.IMHP ---
History of Present Illness Date of Service: 05/28/21 Chief Complaint: pain, confusion 85-year-old female with past medical history of cervicalgia, chronic neck pain, chronic pain syndrome, HTN, postlaminectomy syndrome of cervical region who is Taiwanese speaking only, comes to the hospital brought in by daughter because patient is more confused, and is complaining of severe pain in the neck. It is very difficult to get much history from patient using the spanish interpreter service because she is unable to answer questions as they are asked. Per patient she came to the hospital because she had a steroid injection in her neck last week but the pain persists, she is having 10/10 neck pain nonradiating, is not associated with any numbness weakness or tingling. She herself denies any confusion, denies any chest pain, no shortness of breath, on no headache or change in vision, no abdominal pain, no diarrhea constipation. No urinary symptoms and no lower extremity edema. According to her daughter patient was feeling very weak and was confused at home today. Of note patient was seen in the hospital on Friday 05/25 for the neck pain, patient was given Percocet and Lidoderm at bedtime. Patient reports that the Percocet made her very queasy. Other review of system otherwise negative except as mentioned in above On arrival to the ED patient's vital signs significant for a temp of 97.6, heart rate of 75, respiratory rate of 18, blood pressure 140/61, satting 100% on room air, Labs are significant for WBC count of 29 sodium of 132, potassium of 5.4, BUN of 75, creatinine of 2.96 with baseline around 22 and 0.83 respectively, UA positive for leukocyte Estrace and significant WBC, COVID-[address] shows no bowel obstruction or acute inflammatory changes in the abdomen or pelvis, no biliary ductal dilatation, no hydronephrosis or perinephric stranding, bilateral L5 spondylosis with grade 1 to to lumbosacral spindyithiasis Chest x-ray shows no acute disease Head CT/cervical spine CT no acute cervical spine fracture Review of Systems Review of Systems: Yes all other systems are reviewed and are negative [facility] Medical History Cervicalgia Chronic neck pain Chronic pain syndrome Hypertension Postlaminectomy syndrome of cervical region Spondylosis of cervical joint without myelopathy Surgical History H/O neck surgery Social History Household Members: None Housing: House Do you presently have visiting nurse or other home services: No Alcohol intake: never Patient Tobacco Use Status: Never used Tobacco Use of substances other than those prescribed or required for medical reasons: No Currently Displaying Signs/Symptoms of Drug Intoxication Withdrawal: No Have you been hit, kicked, punched, or otherwise hurt by someone within the past year? If so, by whom?: No Do you feel safe in your current relationship?: No Current Relationship Is there a partner from a previous relationship who is making you feel unsafe now?: No Are you made to feel afraid or neglected: No Advance Directives: Yes Advance Directives on File: Yes Advance Directives Date on File: 01/22/21 Do you have thoughts of harming others: None Do you have a plan to hurt others: No Plan Recently lost weight without trying: No Eating poorly because of decreased appetite: No Nutrition Risks: No Nutritional Risk Patient : No : No Poor oral hygiene: No Meds Allergies Allergy/AdvReac Type Severity Reaction Status Date / Time No Known Allergies Allergy Verified 04/14/21 09:44 Active Medications: Current Medications Generic Name Dose Route Start Last Admin Trade Name Freq PRN Reason Stop Dose Admin Acetaminophen 650 mg 05/27/21 23:39 Acetaminophen 325 Mg Tablet PO Q6H PRN Pain, Mild (Pain Scale 1-3) Hydrocodone Bitart/Acetaminophen 1 tab 05/27/21 23:39 05/28/21 00:07 Hydrocodone Bit/Acetam 5/325 Tablet PO 1 tab Q6H PRN Administration pain Amlodipine Besylate 5 mg 05/28/21 09:00 Amlodipine Besylate 5 Mg Tablet PO DAILY [facility] Protocol Docusate Sodium 100 mg 05/27/21 23:39 Docusate Sodium 100 Mg Capsule PO DAILY PRN Constipation Duloxetine HCl 60 mg 05/28/21 09:00 Duloxetine Hcl 60 Mg Capsule.Dr PO DAILY [facility] Heparin Sodium (Porcine) 5,000 unit 05/27/21 23:39 05/28/21 00:07 Heparin Sodium,Porcine 5,000 Unit/Ml Vial SUBCUT 5,000 unit BID AFSHIN Administration Ceftriaxone Sodium 1 gm/ 50 mls @ 100 mls/hr 05/28/21 16:00 Sodium Chloride IV Q24H AFSHIN Sodium Chloride 1,000 mls @ 100 mls/hr 05/27/21 23:39 05/28/21 00:06 Ns IVCONT 100 mls/hr .Q10H AFSHIN Administration Levothyroxine Sodium 100 mcg 05/28/21 06:30 Levothyroxine Sodium 100 Mcg Tablet PO DAILY@0630 AFSHIN Lidocaine 1 patch 05/28/21 09:00 Lidocaine 4 % Patch Adh..Patch TRANSDERMA DAILY AFSHIN Lorazepam 0.5 mg 05/27/21 23:39 05/28/21 00:07 Lorazepam 0.5 Mg Tablet PO 0.5 mg TID AFSHIN Administration Ondansetron HCl 4 mg 05/27/21 23:39 Ondansetron Hcl 4 Mg/2 Ml Vial IVPUSH Q8H PRN Nausea and Vomiting Pharmacy Consult 1 each 05/27/21 17:37 Consult Rx Perform Med Rec MISCELLANE ONCE PRN Consult order Pravastatin Sodium 80 mg 05/28/21 21:00 Pravastatin Sodium 80 Mg Tablet PO BEDTIME [facility] Sodium Chloride 3 ml 05/28/21 00:00 05/28/21 00:06 0.9 % Sodium Chloride Flush 3 Ml Syringe IVFLUSH 3 ml QSHIFT AFSHIN Administration Tizanidine HCl 2 mg 05/27/21 23:39 Tizanidine Hcl 4 Mg Tablet PO TID PRN muscle spasm Home Medications Medication Instructions Recorded Confirmed Last Taken Type amlodipine 5 mg tablet 1 tab PO DAILY 05/27/21 05/27/21 Unknown History duloxetine 60 mg capsule,delayed 1 cap PO DAILY 05/27/21 05/27/21 Unknown History release levothyroxine 100 mcg tablet 1 tab PO DAILY 05/27/21 05/27/21 Unknown History lisinopril 20 1 tab PO DAILY 05/27/21 05/27/21 Unknown History mg-hydrochlorothiazide 25 mg tablet lorazepam 0.5 mg tablet 1 tab PO TID 05/27/21 05/27/21 Unknown History pravastatin 80 mg tablet 1 tab PO BEDTIME 05/27/21 05/27/21 Unknown History tizanidine 2 mg tablet 1 tab PO TID PRN 05/27/21 05/27/21 Unknown History Physical Exam Vital Signs and Narrative: Vital Signs: Last Vital Signs Temp 97.1 F 05/27/21 23:26 Pulse 74 05/27/21 23:26 Resp 16 05/27/21 23:26 BP 135/78 05/27/21 23:26 Pulse Ox 97 05/27/21 23:26 Body Mass Index 26.6 Const: Other: Speaks Taiwanese mostly but understanding wish and responds in anger sometimes. General: cooperative and no acute distress Eyes: General: appearance normal, both eyes and all related structures Resp: Effort & Inspection: normal respiratory effort and able to speak in complete sentences Auscultation: clear to auscultation bilaterally Cardio: Rate: regular rate Rhythm: regular rhythm GI: Palpation (GI): Soft to palpation Auscultation: normal bowel sounds Skin: General skin exam: no rashes or lesions noted Neuro: Other: No neurological deficits, cranial nerves 2-12 intact Cognition (Neuro): normal cognition Extrem: General: Yes normal to inspection and Yes no pedal edema Results Labs CBC and Chem 7: 05/27/21 14:48 05/27/21 14:48 Labs: Laboratory Results - last 24 hr 05/27/21 05/27/21 05/27/21 14:43 14:48 14:48 MCV 97.5 MCH 32.7 MCHC 33.5 RDW 13.2 Plt Count 559 H MPV 10.3 Immature Gran % (Auto) 1.8 H Neut % (Auto) 86.6 H Lymph % (Auto) 6.8 L [place] % (Auto) 4.6 Eos % (Auto) 0.0 Baso % (Auto) 0.2 Lymph # (Auto) 2.0 [place] # (Auto) 1.3 H Eos # (Auto) 0.0 Baso # (Auto) 0.1 Abs Immat Gran (auto) 0.53 H Absolute Neuts (auto) 25.1 H Absolute Nucleated RBC 0.000 Nucleated RBC % (auto) 0.0 Smear Tech's Comments VERIFIED PT 12.0 INR 1.1 Anion Gap Estim Creat Clear Calc Estimated GFR Random Glucose Lactic Acid Calcium Total Bilirubin Direct Bilirubin AST ALT Alkaline Phosphatase Total Creatine Kinase Total Protein Albumin Urine Color DARK YELLOW Urine Appearance CLOUDY Urine pH 5.5 Ur Specific [place] >= 1.030 H Urine Protein 1+ H Urine Glucose (UA) NEG Urine Ketones NEG Urine Blood NEG Urine Nitrite NEG Ur Leukocyte Esterase 2+ H Urine RBC 1-4 Urine WBC 76-150 H Ur Squamous Epith Cells 1+ Urine Bacteria TRACE Urine Mucus 1+ Salicylates Acetaminophen Coronavirus (PCR) Influenza Type A (PCR) Influenza Type B (PCR) RSV RNA Qual (PCR) 05/27/21 05/27/21 05/27/21 14:48 14:48 14:48 MCV MCH MCHC RDW Plt Count MPV Immature Gran % (Auto) Neut % (Auto) Lymph % (Auto) [place] % (Auto) Eos % (Auto) Baso % (Auto) Lymph # (Auto) [place] # (Auto) Eos # (Auto) Baso # (Auto) Abs Immat Gran (auto) Absolute Neuts (auto) Absolute Nucleated RBC Nucleated RBC % (auto) Smear Tech's Comments PT INR Anion Gap 19 Estim Creat Clear Calc 13.6 Estimated GFR 15 Random Glucose 117 H Lactic Acid 1.4 Calcium 9.8 Total Bilirubin 0.4 Direct Bilirubin 0.2 AST 13 ALT 14 Alkaline Phosphatase 62 Total Creatine Kinase 111 Total Protein 7.9 Albumin 4.7 Urine Color Urine Appearance Urine pH Ur Specific [place] Urine Protein Urine Glucose (UA) Urine Ketones Urine Blood Urine Nitrite Ur Leukocyte Esterase Urine RBC Urine WBC Ur Squamous Epith Cells Urine Bacteria Urine Mucus Salicylates < 5.0 L Acetaminophen < 1 Coronavirus (PCR) NEGATIVE Influenza Type A (PCR) NEGATIVE Influenza Type B (PCR) NEGATIVE RSV RNA Qual (PCR) NEGATIVE ECG Interpretation: Normal sinus rhythm with no significant ST T wave changes Imaging Radiologist's Impressions: Impressions Cervical Spine CT 05/27/21 14:09 IMPRESSION: No acute intracranial abnormality. Diffuse atrophy. Microangiopathy. EXAMINATION: CT OF THE CERVICAL SPINE CLINICAL INFORMATION: Neck pain COMPARISON: July 29, 2020. TECHNIQUE: Thin helical images with sagittal and coronal reformats. This CT examination was performed using dose optimization techniques as appropriate, variously including the following: *Automated exposure control *Adjustment of mA and/or kV according to patient size (this includes techniques or standardized protocols for targeted exams where dose is matched to indication/reason for exam; i.e. extremities or head) *Use of iterative reconstruction technique DOSE: DLP 488.79 mGy-cm FINDINGS: No abnormal prevertebral soft tissue swelling is seen. Paraspinal muscle fat planes maintained. No acute cervical spine fracture is noted. Cerclage wires are seen at C4, C5, and C6. There is ankylosis and bony fusion at C4-C5, C5-C6, and C6-C7. There is 2 mm of subluxation C3 C3 on C4. There is disc space narrowing seen within the upper thoracic spine. IMPRESSION: No acute cervical spine fracture. Cervical spondylosis as described with previous surgery.. Chest X-Ray 05/27/21 14:09 IMPRESSION: No acute disease. Head CT 05/27/21 14:09 IMPRESSION: No acute intracranial abnormality. Diffuse atrophy. Microangiopathy. EXAMINATION: CT OF THE CERVICAL SPINE CLINICAL INFORMATION: Neck pain COMPARISON: July 29, 2020. TECHNIQUE: Thin helical images with sagittal and coronal reformats. This CT examination was performed using dose optimization techniques as appropriate, variously including the following: *Automated exposure control *Adjustment of mA and/or kV according to patient size (this includes techniques or standardized protocols for targeted exams where dose is matched to indication/reason for exam; i.e. extremities or head) *Use of iterative reconstruction technique DOSE: DLP 488.79 mGy-cm FINDINGS: No abnormal prevertebral soft tissue swelling is seen. Paraspinal muscle fat planes maintained. No acute cervical spine fracture is noted. Cerclage wires are seen at C4, C5, and C6. There is ankylosis and bony fusion at C4-C5, C5-C6, and C6-C7. There is 2 mm of subluxation C3 C3 on C4. There is disc space narrowing seen within the upper thoracic spine. IMPRESSION: No acute cervical spine fracture. Cervical spondylosis as described with previous surgery.. Abdomen/Pelvis CT 05/27/21 14:13 IMPRESSION: 1. No bowel obstruction or acute inflammatory changes in abdomen or pelvis. 2. No biliary ductal dilatation, hydronephrosis, or perinephric stranding. 3. 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 Assessment and Plan (1) Acute renal failure: Status: Acute (2) Acute UTI: Status: Acute (3) Chronic pain syndrome: Status: Acute This is an 85-year-old female with past medical history of hypertension and chronic neck pain/chronic pain syndrome who presents to the hospital with confusion, as well as pain in her neck found to have NAIMA any UTI # NAIMA - most likely secondary to dehydration and UTI and NAIMA - will start on IV fluids - follow BMP # UTI - has leukocytosis which is most likely multifactorial secondary to acute infection as well as recent steroid injection, afebrile - started on IV antibiotics - follow cultures # chronic pain syndrome - Continue Lidoderm patch - home medications - patient clinically appears comfortable and in no acute pain distress # leukocytosis - most likely multifactorial in the setting of acute infection as well as recent steroid injection - treat infection - follow CBC DVT prophylaxis: heparin subq Quality Stroke Does the patient have a stroke diagnosis?: No VTE Prior VTE?: No VTE Risk Level:: Medical - moderate - high VTE Device Contraindication: Treatment Not Indicated VTE Drug Contraindication: N/A - Med Ordered
[2021-05-28] MEDS: Levothyroxine Sodium 100 MCG TABLET PO (06:17)
[2021-05-28 06:26] LABS: MANUAL DIFF FLAG NO
[2021-05-28 06:55] LABS: Basophils Percent Auto 0.1 % (0-2); Eosinophils Absolute Auto 0.1 X10*3/uL (0.0-0.4); Eosinophils Percent Auto 0.4 % (0-4); Hematocrit 35.6 % (37-47); Hemoglobin 12.1 g/dl (12.0-16.0); Imm Gran Abs Auto 0.25 X10*3/uL (0.00-0.03); Imm Gran Pct Auto 1.1 % (0.0-0.4); Lymphocytes Absolute Auto 1.9 X10*3/uL (1.2-4.9); Lymphocytes Percent Auto 8.6 % (20-40); Mean Corpuscular Hemoglobin 33.8 pg (27.0-33.0); Mean Corpuscular Volume 99.4 fL (80-98); Mean Platelet Volume 10.5 fL (9.4-12.3); Monocytes Absolute Auto 1.3 X10*3/uL (0.1-1.2); Monocytes Percent Auto 5.8 % (2-11); Neutrophils Absolute Auto 18.7 X10*3/uL (2.0-8.3); Platelet Count 489 X10*3/uL (160-400); Red Blood Count 3.58 X10*6/uL (4.20-5.50); Red Cell Distribution Width 13.2 % (11.0-16.0); White Blood Count 22.3 X10*3/uL (4.8-10.8)
[2021-05-28 06:57] LABS: Anion Gap 15 (12-20); Blood Urea Nitrogen 49 mg/dL (9-16); Calcium 9.4 mg/dL (8.4-10.2); Carbon Dioxide 14 mmol/L (22-29); Chloride 111 mmol/L (96-108); Estimated Glomerular Filt Rate 48; Glucose Random 99 mg/dL (60-115); Potassium 5.1 mmol/L (3.3-5.1); Sodium 135 mmol/L (135-145)
[2021-05-28] MEDS: amLODIPine Besylate 5 MG TABLET PO (08:02)
[2021-05-28] MEDS: DULoxetine HCl 60 MG CAPSULE.DR PO (08:02)
[2021-05-28] MEDS: Lidocaine 4 % Patch ADH..PATCH 1 PATCH TRANSDERMA (08:02)
--- NOTE | 2021-05-28 13:42 | HO.PM.IMPN ---
Subjective Subjective Date of Service: 05/28/21 Interval History: Patient offered no complaints of pain this morning, sitting comfortably, no acute issues overnight, did not mention suicidal ideation or thoughts. Review of Systems General no headache, no dizziness, no fever chills. CVS no chest pain, no palpitation. Respiratory no cough, no sob. Gastrointestinal no nausea, no vomiting, no abdominal pain Physical Exam Vital Signs: Vital Signs: Last Vital Signs Temp 97.2 F 05/28/21 11:04 Pulse 83 05/28/21 11:04 Resp 17 05/28/21 11:04 BP 126/62 05/28/21 11:04 Pulse Ox 99 05/28/21 11:04 Body Mass Index 26.6 General sitting comfortably in no acute distress, talking in full sentences Neck supple no JVD. CVS regular rate rhythm, Respiratory lungs clear to auscultation, no respiratory distress, no wheeze, no rhonchi. Gastrointestinal abdomen soft, nontender, bowel sounds audible. Extremities no edema. Good range of motion both upper extremities Neuro nonfocal,speech clear, normal cognition Skin no rash Objective Data Current Medications Generic Name Dose Route Start Last Admin Trade Name Freq PRN Reason Stop Dose Admin Acetaminophen 650 mg 05/27/21 23:39 Acetaminophen 325 Mg Tablet PO Q6H PRN Pain, Mild (Pain Scale 1-3) Hydrocodone Bitart/Acetaminophen 1 tab 05/27/21 23:39 05/28/21 08:01 Hydrocodone Bit/Acetam 5/325 Tablet PO 1 tab Q6H PRN Administration pain Amlodipine Besylate 5 mg 05/28/21 09:00 05/28/21 08:02 Amlodipine Besylate 5 Mg Tablet PO 5 mg DAILY AFSHIN Administration Protocol Docusate Sodium 100 mg 05/27/21 23:39 Docusate Sodium 100 Mg Capsule PO DAILY PRN Constipation Duloxetine HCl 60 mg 05/28/21 09:00 05/28/21 08:02 Duloxetine Hcl 60 Mg Capsule. PO 60 mg DAILY AFSHIN Administration Heparin Sodium (Porcine) 5,000 unit 05/27/21 23:39 05/28/21 08:02 Heparin Sodium,Porcine 5,000 Unit/Ml Vial SUBCUT 5,000 unit BID AFSHIN Administration Ceftriaxone Sodium 1 gm/ 50 mls @ 100 mls/hr 05/28/21 16:00 Sodium Chloride IV Q24H AFSHIN Sodium Chloride 1,000 mls @ 100 mls/hr 05/27/21 23:39 05/28/21 08:47 Ns IVCONT 100 mls/hr .Q10H AFSHIN Administration Levothyroxine Sodium 100 mcg 05/28/21 06:30 05/28/21 06:17 Levothyroxine Sodium 100 Mcg Tablet PO 100 mcg DAILY@0630 AFSHIN Administration Lidocaine 1 patch 05/28/21 09:00 05/28/21 08:02 Lidocaine 4 % Patch Adh..Patch TRANSDERMA 1 patch DAILY AFSHIN Administration Lorazepam 0.5 mg 05/27/21 23:39 05/28/21 08:02 Lorazepam 0.5 Mg Tablet PO 0.5 mg TID AFSHIN Administration Ondansetron HCl 4 mg 05/27/21 23:39 Ondansetron Hcl 4 Mg/2 Ml Vial IVPUSH Q8H PRN Nausea and Vomiting Pharmacy Consult 1 each 05/27/21 17:37 Consult Rx Perform Med Rec MISCELLANE ONCE PRN Consult order Pravastatin Sodium 80 mg 05/28/21 21:00 Pravastatin Sodium 80 Mg Tablet PO BEDTIME AFSHIN Sodium Chloride 3 ml 05/28/21 00:00 05/28/21 07:36 0.9 % Sodium Chloride Flush 3 Ml Syringe IVFLUSH Not Given QSHIFT AFSHIN Tizanidine HCl 2 mg 05/27/21 23:39 Tizanidine Hcl 4 Mg Tablet PO TID PRN muscle spasm Labs CBC & Chem 7: 05/28/21 05:56 05/28/21 05:56 Labs: Laboratory Results - last 24 hr 05/27/21 05/27/21 05/27/21 14:43 14:48 14:48 MCV 97.5 MCH 32.7 MCHC 33.5 RDW 13.2 Plt Count 559 H MPV 10.3 Immature Gran % (Auto) 1.8 H Neut % (Auto) 86.6 H Lymph % (Auto) 6.8 L Thomas % (Auto) 4.6 Eos % (Auto) 0.0 Baso % (Auto) 0.2 Lymph # (Auto) 2.0 Thomas # (Auto) 1.3 H Eos # (Auto) 0.0 Baso # (Auto) 0.1 Abs Immat Gran (auto) 0.53 H Absolute Neuts (auto) 25.1 H Absolute Nucleated RBC 0.000 Nucleated RBC % (auto) 0.0 Smear Tech's Comments VERIFIED PT 12.0 INR 1.1 Anion Gap Estim Creat Clear Calc Estimated GFR Random Glucose Lactic Acid Calcium Total Bilirubin Direct Bilirubin AST ALT Alkaline Phosphatase Total Creatine Kinase Total Protein Albumin Urine Color DARK YELLOW Urine Appearance CLOUDY Urine pH 5.5 Ur Specific [place] >= 1.030 H Urine Protein 1+ H Urine Glucose (UA) NEG Urine Ketones NEG Urine Blood NEG Urine Nitrite NEG Ur Leukocyte Esterase 2+ H Urine RBC 1-4 Urine WBC 76-150 H Ur Squamous Epith Cells 1+ Urine Bacteria TRACE Urine Mucus 1+ Salicylates Acetaminophen Coronavirus (PCR) Influenza Type A (PCR) Influenza Type B (PCR) RSV RNA Qual (PCR) 05/27/21 05/27/21 05/27/21 14:48 14:48 14:48 MCV MCH MCHC RDW Plt Count MPV Immature Gran % (Auto) Neut % (Auto) Lymph % (Auto) Thomas % (Auto) Eos % (Auto) Baso % (Auto) Lymph # (Auto) Thomas # (Auto) Eos # (Auto) Baso # (Auto) Abs Immat Gran (auto) Absolute Neuts (auto) Absolute Nucleated RBC Nucleated RBC % (auto) Smear Tech's Comments PT INR Anion Gap 19 Estim Creat Clear Calc 13.6 Estimated GFR 15 Random Glucose 117 H Lactic Acid 1.4 Calcium 9.8 Total Bilirubin 0.4 Direct Bilirubin 0.2 AST 13 ALT 14 Alkaline Phosphatase 62 Total Creatine Kinase 111 Total Protein 7.9 Albumin 4.7 Urine Color Urine Appearance Urine pH Ur Specific [place] Urine Protein Urine Glucose (UA) Urine Ketones Urine Blood Urine Nitrite Ur Leukocyte Esterase Urine RBC Urine WBC Ur Squamous Epith Cells Urine Bacteria Urine Mucus Salicylates < 5.0 L Acetaminophen < 1 Coronavirus (PCR) NEGATIVE Influenza Type A (PCR) NEGATIVE Influenza Type B (PCR) NEGATIVE RSV RNA Qual (PCR) NEGATIVE 05/28/21 05/28/21 05:56 05:56 MCV 99.4 H MCH 33.8 H MCHC 34.0 RDW 13.2 Plt Count 489 H MPV 10.5 Immature Gran % (Auto) 1.1 H Neut % (Auto) 84.0 H Lymph % (Auto) 8.6 L Thomas % (Auto) 5.8 Eos % (Auto) 0.4 Baso % (Auto) 0.1 Lymph # (Auto) 1.9 Thomas # (Auto) 1.3 H Eos # (Auto) 0.1 Baso # (Auto) 0.0 Abs Immat Gran (auto) 0.25 H Absolute Neuts (auto) 18.7 H Absolute Nucleated RBC 0.000 Nucleated RBC % (auto) 0.0 Smear Tech's Comments PT INR Anion Gap 15 Estim Creat Clear Calc 38.0 Estimated GFR 48 Random Glucose 99 Lactic Acid Calcium 9.4 Total Bilirubin Direct Bilirubin AST ALT Alkaline Phosphatase Total Creatine Kinase Total Protein Albumin Urine Color Urine Appearance Urine pH Ur Specific [place] Urine Protein Urine Glucose (UA) Urine Ketones Urine Blood Urine Nitrite Ur Leukocyte Esterase Urine RBC Urine WBC Ur Squamous Epith Cells Urine Bacteria Urine Mucus Salicylates Acetaminophen Coronavirus (PCR) Influenza Type A (PCR) Influenza Type B (PCR) RSV RNA Qual (PCR) Microbiology Microbiology Results: Microbiology 05/27/21 Unknown Urine Culture - Preliminary Urine Catheterized - Bello Catheter Culture in progress. Assessment and Plan (1) Acute renal failure: Status: Acute (2) Chronic pain syndrome: Status: Acute (3) Cervicalgia: Status: Acute (4) Acute UTI: Status: Acute Assessment and Plan: 85 y/o female with history of chronic neck followed by Pain Management s/p recent C4-C6 therapeutic bupivacaine/kenalog inj. on 05/20 presents to the ER with ongoing pain despite her home pain medications and confusion has had neck pain for 30+ years and history of surgeries in the 's and multiple injections in ER patient mentioned about suicidal ideation does not want to live with this pain, and diagnosed to have NAIMA and UTI # NAIMA - most likely secondary to dehydration and UTI, creatinine normalized will DC IV fluid # UTI - has leukocytosis which is most likely multifactorial secondary to acute infection as well as recent steroid injection, afebrile - continue IV ceftriaxone day 2 follow urine culture No confusion noted, no acute encephalopathy # chronic pain syndrome/chronic neck pain - Continue Lidoderm patch, hydrocodone, tizanidine - patient clinically appears comfortable and in no acute pain distress # leukocytosis - most likely multifactorial in the setting of acute infection as well as recent steroid injection -? treat infection - follow CBC # suicidal ideation patient just say phrases that she does not want to live with this pain. I doubt that patient has any suicidal plan, await care team consult. DVT prophylaxis: heparin subq Quality Stroke Does the patient have a stroke diagnosis?: No VTE Prior VTE?: No VTE Risk Level:: Medical - moderate - high VTE Device Contraindication: Treatment Not Indicated VTE Drug Contraindication: N/A - Med Ordered
--- NOTE | 2021-05-28 13:46 | MHC.CLN ---
NUTRITION CONSULT PATIENT ASSESSED LOW NUTRITION RISK. NO NEW NUTRITION INTERVENTIONS.
--- NOTE | 2021-05-28 14:10 | MHC.CM.PN ---
pt lives c one of her adult children in her home. she is independent in her care but the son helps her c the needs she has. pt ambulates s AD. dc plan is home no svcs. family to transport at dc. cm to cont. to follow.
[2021-05-28] MEDS: cefTRIAXone sodium 1 GM in 0.9 % Sodium Chloride 50 ML IV (16:10)
[2021-05-28] MEDS: Pravastatin Sodium 80 MG TABLET PO (21:33)
[2021-05-29] VITALS (7 sets, daily range): BP systolic 133–143; BP diastolic 61–90; PULSE 74–96; RESP 16–18; TEMP 36.5–37.2; O2SAT 96–98
[2021-05-29] MEDS: Levothyroxine Sodium 100 MCG TABLET PO (05:48)
[2021-05-29 07:08] LABS: MANUAL DIFF FLAG NO
[2021-05-29 07:14] LABS: Basophils Absolute Auto 0.1 X10*3/uL (0.0-0.2); Basophils Percent Auto 0.5 % (0-2); Eosinophils Absolute Auto 0.2 X10*3/uL (0.0-0.4); Eosinophils Percent Auto 1.3 % (0-4); Hematocrit 39.1 % (37-47); Hemoglobin 13.1 g/dl (12.0-16.0); Imm Gran Abs Auto 0.27 X10*3/uL (0.00-0.03); Imm Gran Pct Auto 1.6 % (0.0-0.4); Lymphocytes Percent Auto 23.5 % (20-40); Mean Corpuscular HGB Conc 33.5 g/dl (31.0-35.0); Mean Corpuscular Hemoglobin 33.1 pg (27.0-33.0); Mean Corpuscular Volume 98.7 fL (80-98); Mean Platelet Volume 10.3 fL (9.4-12.3); Monocytes Absolute Auto 1.1 X10*3/uL (0.1-1.2); Monocytes Percent Auto 6.3 % (2-11); Neutrophils Absolute Auto 11.2 X10*3/uL (2.0-8.3); Neutrophils Percent Auto 66.8 % (45-73); Platelet Count 471 X10*3/uL (160-400); Red Blood Count 3.96 X10*6/uL (4.20-5.50); Red Cell Distribution Width 13.1 % (11.0-16.0); White Blood Count 16.8 X10*3/uL (4.8-10.8)
[2021-05-29 07:41] LABS: Anion Gap 14 (12-20); Blood Urea Nitrogen 27 mg/dL (9-16); Carbon Dioxide 16 mmol/L (22-29); Chloride 109 mmol/L (96-108); Creatinine Clr Calc Pharmacy 54.1; Estimated Glomerular Filt Rate > 60; Glucose Random 88 mg/dL (60-115); Sodium 134 mmol/L (135-145)
[2021-05-29] MEDS: amLODIPine Besylate 2.5 MG TABLET PO (09:16)
[2021-05-29] MEDS: DULoxetine HCl 60 MG CAPSULE.DR PO (09:16)
[2021-05-29] MEDS: Lidocaine 4 % Patch ADH..PATCH 1 PATCH TRANSDERMA (09:17)
[2021-05-29] MEDS: 0.9 % Sodium Chloride Flush 3 ML SYRINGE IVFLUSH ×3 (09:17→21:00)
[2021-05-29] MEDS: Heparin Sodium,Porcine 5,000 UNIT/ML VIAL 5000 UNIT SUBCUT ×2 (09:18→20:59)
[2021-05-29] MEDS: LORazepam 0.5 MG TABLET PO ×3 (09:18→20:59)
[2021-05-29] MEDS: cefTRIAXone sodium 1 GM in 0.9 % Sodium Chloride 50 ML IV (16:28)
--- NOTE | 2021-05-29 17:03 | HO.PM.IMPN ---
Subjective Subjective Date of Service: 05/29/21 Interval History: Resting comfortably, denies neck pain, no other acute issues overnight. Review of Systems General no headache, no dizziness, no fever chills.? CVS no chest pain, no palpitation.? Respiratory no cough, no sob.? Gastrointestinal no nausea, no vomiting, no abdominal pain Physical Exam Vital Signs: Vital Signs: Last Vital Signs Temp 98.0 F 05/29/21 15:54 Pulse 96 05/29/21 15:54 Resp 17 05/29/21 15:54 BP 139/80 05/29/21 15:54 Pulse Ox 96 05/29/21 15:54 Body Mass Index 26.6 General resting comfortably in no acute distress, talking in full sentences? Neck supple,no spasm,decolration at base of neck,good ROM, no JVD. CVS? regular rate rhythm, Respiratory lungs clear to auscultation, no respiratory distress, no wheeze, no rhonchi. Gastrointestinal abdomen soft, nontender, bowel sounds audible. Extremities no edema.? Good range of motion both upper extremities Neuro nonfocal,speech clear, normal cognition Skin no rash Objective Data Current Medications Generic Name Dose Route Start Last Admin Trade Name Freq PRN Reason Stop Dose Admin Acetaminophen 650 mg 05/27/21 23:39 Acetaminophen 325 Mg Tablet PO Q6H PRN Pain, Mild (Pain Scale 1-3) Hydrocodone Bitart/Acetaminophen 1 tab 05/27/21 23:39 05/28/21 14:26 Hydrocodone Bit/Acetam 5/325 Tablet PO 1 tab Q6H PRN Administration pain Amlodipine Besylate 2.5 mg 05/29/21 09:00 05/29/21 09:16 Amlodipine Besylate 2.5 Mg Tablet PO 2.5 mg DAILY AFSHIN Administration Protocol Docusate Sodium 100 mg 05/27/21 23:39 Docusate Sodium 100 Mg Capsule PO DAILY PRN Constipation Duloxetine HCl 60 mg 05/28/21 09:00 05/29/21 09:16 Duloxetine Hcl 60 Mg Capsule.Dr PO 60 mg DAILY AFSHIN Administration Heparin Sodium (Porcine) 5,000 unit 05/27/21 23:39 05/29/21 09:18 Heparin Sodium,Porcine 5,000 Unit/Ml Vial SUBCUT 5,000 unit BID AFSHIN Administration Ceftriaxone Sodium 1 gm/ 50 mls @ 100 mls/hr 05/28/21 16:00 05/29/21 16:28 Sodium Chloride IV 100 mls/hr Q24H AFSHIN Administration Levothyroxine Sodium 100 mcg 05/28/21 06:30 05/29/21 05:48 Levothyroxine Sodium 100 Mcg Tablet PO 100 mcg DAILY@0630 AFSHIN Administration Lidocaine 1 patch 05/28/21 09:00 05/29/21 09:17 Lidocaine 4 % Patch Adh..Patch TRANSDERMA 1 patch DAILY AFSHIN Administration Lorazepam 0.5 mg 05/27/21 23:39 05/29/21 16:27 Lorazepam 0.5 Mg Tablet PO 0.5 mg TID AFSHIN Administration Ondansetron HCl 4 mg 05/27/21 23:39 Ondansetron Hcl 4 Mg/2 Ml Vial IVPUSH Q8H PRN Nausea and Vomiting Pharmacy Consult 1 each 05/27/21 17:37 Consult Rx Perform Med Rec MISCELLANE ONCE PRN Consult order Pravastatin Sodium 80 mg 05/28/21 21:00 05/28/21 21:33 Pravastatin Sodium 80 Mg Tablet PO 80 mg BEDTIME AFSHIN Administration Sodium Chloride 3 ml 05/28/21 00:00 05/29/21 16:28 0.9 % Sodium Chloride Flush 3 Ml Syringe IVFLUSH 3 ml QSHIFT AFSHIN Administration Tizanidine HCl 2 mg 05/27/21 23:39 Tizanidine Hcl 4 Mg Tablet PO TID PRN muscle spasm Labs CBC & Chem 7: 05/29/21 06:48 05/29/21 06:48 Labs: Laboratory Results - last 24 hr 05/29/21 05/29/21 06:48 06:48 MCV 98.7 H MCH 33.1 H MCHC 33.5 RDW 13.1 Plt Count 471 H MPV 10.3 Immature Gran % (Auto) 1.6 H Neut % (Auto) 66.8 Lymph % (Auto) 23.5 [place] % (Auto) 6.3 Eos % (Auto) 1.3 Baso % (Auto) 0.5 Lymph # (Auto) 4.0 [place] # (Auto) 1.1 Eos # (Auto) 0.2 Baso # (Auto) 0.1 Abs Immat Gran (auto) 0.27 H Absolute Neuts (auto) 11.2 H Absolute Nucleated RBC 0.000 Nucleated RBC % (auto) 0.0 Anion Gap 14 Estim Creat Clear Calc 54.1 Estimated GFR > 60 Random Glucose 88 Calcium 10.0 D Microbiology Microbiology Results: Microbiology 05/27/21 14:44 Blood Culture - Preliminary Blood - Venous No growth after 48 hours. 05/27/21 14:48 Blood Culture - Preliminary Blood - Venous No growth after 48 hours. 05/27/21 Unknown Urine Culture - Preliminary Urine Catheterized - Bello Catheter Gram negative naldo Gram negative naldo#2 Assessment and Plan (1) Acute renal failure: Status: Acute (2) Acute UTI: Status: Acute (3) Chronic pain syndrome: Status: Acute (4) Spondylosis of cervical joint without myelopathy: Status: Acute Assessment and Plan: 85 y/o female with history of chronic neck followed by Pain Management s/p recent C4-C6 therapeutic bupivacaine/kenalog inj. on 05/20? presents to the ER with ongoing pain despite her home pain medications and confusion has had neck pain for 30+ years and history of surgeries in the 's and multiple injections in ER patient mentioned about suicidal ideation does not want to live with this pain, and diagnosed to have NAIMA and UTI # NAIMA - most likely secondary to dehydration and UTI, creatinine normalized Metabolic acidosis improving will give soda bicarb and follow labs # UTI - has leukocytosis which is most likely multifactorial secondary to acute infection as well as recent steroid injection, afebrile, WBC trending down - continue IV ceftriaxone day 3, urine culture grew 2 g negative rods, final sensitivities pending. ? No confusion noted, no acute encephalopathy # chronic pain syndrome/chronic neck pain - Continue Lidoderm patch, hydrocodone, tizanidine, patient clinically appears comfortable and in no acute pain distress Patient seen by physical therapy they recommend no skilled PT upon discharge. # leukocytosis - most likely multifactorial in the setting of acute infection as well as recent steroid injection, WBC improving # suicidal ideation being evaluated by care team # hypertension BP stable continue Norvasc DVT prophylaxis: heparin subq Quality Stroke Does the patient have a stroke diagnosis?: No VTE Prior VTE?: No VTE Risk Level:: Medical - moderate - high VTE Device Contraindication: Treatment Not Indicated VTE Drug Contraindication: N/A - Med Ordered
--- NOTE | 2021-05-29 18:09 | MHC.CARE ---
CARE team evaluated pt, cleared for discharge. Assessment is completed in medical record and available for review. Psych consult requested to assess other symptoms/behaviors observed during evaluation.
[2021-05-29] MEDS: Sodium Bicarbonate 650 MG TABLET PO (20:59)
[2021-05-29] MEDS: Pravastatin Sodium 80 MG TABLET PO (20:59)
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
--- NOTE | 2021-05-30 01:03 | MHC.CARE ---
Pt is a voluntary inpatient psych bedsearch, CARE team and Alexa Simmons NP involved with pt's care.
[2021-05-30 04:00] VITALS: BP 136/69; PULSE 86; RESP 18; TEMP 36.9; O2SAT 97
[2021-05-30] MEDS: Levothyroxine Sodium 100 MCG TABLET PO (05:48)
[2021-05-30 07:34] LABS: MANUAL DIFF FLAG NO
[2021-05-30 07:43] LABS: Basophils Absolute Auto 0.1 X10*3/uL (0.0-0.2); Basophils Percent Auto 0.8 % (0-2); Eosinophils Absolute Auto 0.5 X10*3/uL (0.0-0.4); Eosinophils Percent Auto 3.2 % (0-4); Hematocrit 39.5 % (37-47); Hemoglobin 13.2 g/dl (12.0-16.0); Imm Gran Abs Auto 0.29 X10*3/uL (0.00-0.03); Imm Gran Pct Auto 2.1 % (0.0-0.4); Lymphocytes Absolute Auto 4.4 X10*3/uL (1.2-4.9); Lymphocytes Percent Auto 31.4 % (20-40); Mean Corpuscular HGB Conc 33.4 g/dl (31.0-35.0); Mean Corpuscular Hemoglobin 33.2 pg (27.0-33.0); Mean Corpuscular Volume 99.2 fL (80-98); Mean Platelet Volume 10.3 fL (9.4-12.3); Monocytes Absolute Auto 1.1 X10*3/uL (0.1-1.2); Monocytes Percent Auto 8.1 % (2-11); Neutrophils Absolute Auto 7.6 X10*3/uL (2.0-8.3); Neutrophils Percent Auto 54.4 % (45-73); Platelet Count 482 X10*3/uL (160-400); Red Blood Count 3.98 X10*6/uL (4.20-5.50); Red Cell Distribution Width 13.1 % (11.0-16.0)
[2021-05-30 08:00] VITALS: BP 177/92; PULSE 102; RESP 18; TEMP 36.3; O2SAT 97
[2021-05-30] MEDS: DULoxetine HCl 60 MG CAPSULE.DR PO (08:01)
[2021-05-30] MEDS: Heparin Sodium,Porcine 5,000 UNIT/ML VIAL 5000 UNIT SUBCUT (08:01)
[2021-05-30] MEDS: HYDROcodone Bit/Acetam 5/325 TABLET 1 TAB PO (08:01)
[2021-05-30] MEDS: amLODIPine Besylate 2.5 MG TABLET PO ×2 (08:01→12:25)
[2021-05-30] MEDS: LORazepam 0.5 MG TABLET PO ×2 (08:01→15:12)
[2021-05-30] MEDS: Sodium Bicarbonate 650 MG TABLET PO (08:01)
[2021-05-30] MEDS: 0.9 % Sodium Chloride Flush 3 ML SYRINGE IVFLUSH (08:01)
[2021-05-30] MEDS: Lidocaine 4 % Patch ADH..PATCH 1 PATCH TRANSDERMA (08:02)
[2021-05-30 08:09] LABS: Anion Gap 16 (12-20); Blood Urea Nitrogen 30 mg/dL (9-16); Calcium 9.5 mg/dL (8.4-10.2); Carbon Dioxide 17 mmol/L (22-29); Chloride 108 mmol/L (96-108); Creatinine Clr Calc Pharmacy 56.3; Estimated Glomerular Filt Rate > 60; Glucose Random 98 mg/dL (60-115); Potassium 5.4 mmol/L (3.3-5.1); Sodium 136 mmol/L (135-145)
--- NOTE | 2021-05-30 09:14 | MHC.CM.PN ---
PER CONVERSATION WITH CARE TEAM, PLAN IS GERIATRIC BED SEARCH. CASE MANAGEMENT AVAILABLE FOR ANY NEEDS
--- NOTE | 2021-05-30 11:41 | P.DS_ITS ---
DS: Providers Provider Date of Service: 05/30/21 Date of admission: 05/27/21 21:43 Primary care physician: Ester Robles MD Consults: 05/27/21 14:13 Consult to Care Team Stat Comment: Reason for consultation: si 05/29/21 17:11 Consult to Psychiatry Routine Consulting Provider: Osiel Torres Reason for consultation: depression/ Has provider been notified: No DS: Diagnosis Discharge Diagnosis (1) Depression: Status: Acute DS: Medications Discharge Medications Home Medications: Home Medications Medication Instructions Recorded Confirmed amlodipine 5 mg tablet 1 tab PO DAILY 05/27/21 05/27/21 duloxetine 60 mg capsule,delayed 1 cap PO DAILY 05/27/21 05/27/21 release levothyroxine 100 mcg tablet 1 tab PO DAILY 05/27/21 05/27/21 lorazepam 0.5 mg tablet 1 tab PO TID 05/27/21 05/27/21 pravastatin 80 mg tablet 1 tab PO BEDTIME 05/27/21 05/27/21 tizanidine 2 mg tablet 1 tab PO TID PRN 05/27/21 05/27/21 Previous Rx's Medication Instructions Recorded hydrocodone 5 mg-acetaminophen 325 1 tab PO Q6H PRN #7 tab 05/24/21 mg tablet lidocaine 5 % topical patch 1 patch TOPICAL DAILY #15 ea 05/24/21 (Lidoderm) acetaminophen 325 mg tablet 650 mg PO Q6H PRN #30 tab 05/30/21 cefuroxime axetil 500 mg tablet 500 mg PO Q12H #8 tab 05/30/21 sodium bicarbonate 650 mg tablet 650 mg PO BID #6 tab 05/30/21 DS: Summary Hospital Course Hospital Course: History of presenting illness Chief Complaint: pain, confusion 85-year-old female with past medical history of cervicalgia, chronic neck pain, chronic pain syndrome, HTN, postlaminectomy syndrome of cervical region who is [place] speaking only, comes to the hospital brought in by daughter because patient is more confused, and is complaining of severe pain in the neck.? It is very difficult to get much history from patient using the aerial photograph interpreter service because she is unable to answer questions as they are asked.? Per patient she came to the hospital because she had a steroid injection in her neck last week but the pain persists, she is having 10/10 neck pain nonradiating, is not associated with any numbness weakness or tingling.? She herself denies any confusion, denies any chest pain, no shortness of breath, on no headache or change in vision, no abdominal pain, no diarrhea constipation.? No urinary symptoms and no lower extremity edema.? According to her daughter patient was feeling very weak and was confused at home today. Of note patient was seen in the hospital on Friday 05/25 for the neck pain, patient was given Percocet and Lidoderm at bedtime.? Patient reports that the Percocet made her very queasy. Other review of system otherwise negative except as mentioned in above On arrival to the ED patient's vital signs significant for a temp of 97.6, heart rate of 75, respiratory rate of 18, blood pressure 140/61, satting 100% on room air, Labs are significant for WBC count of 29 sodium of 132, potassium of 5.4, BUN of 75, creatinine of 2.96 with baseline around 22 and 0.83 respectively, UA positive for leukocyte Estrace and significant WBC, COVID-[address] shows no bowel obstruction or acute inflammatory changes in the abdomen or pelvis, no biliary ductal dilatation, no hydronephrosis or perinephric stranding, bilateral L5 spondylosis with grade 1 to to lumbosacral spindyithiasis Chest x-ray shows no acute disease Head CT/cervical spine CT? no acute cervical spine fracture Hospital course 85 y/o female with history of chronic neck followed by Pain Management s/p recent C4-C6 therapeutic bupivacaine/kenalog inj. on 05/20? presents to the ER with ongoing pain despite her home pain medications and confusion has had neck pain for 30+ years and history of surgeries in the 90's and multiple injections, in ER patient mentioned about suicidal ideation does not want to live with this pain, and diagnosed to have NAIMA and UTI. # NAIMA , patient treated with IV fluids renal function normalized, still noted to have mild acidosis and hyperkalemia, will treat with 3 more days of soda bicarb, repeat labs at a.m. renal failure most likely secondary to use of NSAIDs, hypotension, Mark inhibitor/diuretics and infection. Will continue to hold MARK-inhibitor and diuretics, recommend to avoid NSAIDs. # UTI urine culture grew Citrobacter and Enterobacter Cloacae , leukocytosis is trending down, patient remains afebrile, blood cultures x2 are negative, patient received 3 days of IV ceftriaxone now being discharged on by mouth Ceftin. # chronic pain syndrome/chronic neck pain Continue Lidoderm patch, hydrocodone, tizanidine, patient clinically appears comfortable and in no acute distress, good range of motion both upper extremity,seen by physical therapy they recommend no skilled PT upon discharge. # leukocytosis - most likely multifactorial in the setting of acute infection as well as recent steroid injection, WBC improving # suicidal ideation being transferred to [facility] psych unit # hypertension initially noted to have low blood pressure, therefore antihypertensive were held, now blood pressure is trending up therefore will resume 5 mg of Norvasc, BP remains elevated consider beta-sofia , will avoid Mark inhibitors due to renal failure. Time Spent with Patient Time attestation: Total time spent providing and/or coordinating discharge services: Discharge coordination time: Greater than 30 minutes Quality: Stroke Does the patient have a stroke diagnosis?: No Physical Exam Vital Signs: Vital Signs: Last Vital Signs Temp 97.4 F 05/30/21 08:00 Pulse 102 H 05/30/21 08:00 Resp 18 05/30/21 08:00 BP 177/92 H 05/30/21 08:00 Pulse Ox 97 05/30/21 08:00 Body Mass Index 26.6 ? General resting comfortably in no acute distress, ta lking in full sent ences? Neck supple ,no spasm,hyperpig mented skin at bas e of neck,good ROM , no JVD. CVS? reg ular rate rhythm, Respiratory lungs clear to auscultat ion, no respirator y distress, no whe edna, no rhonchi. G astrointestinal ab domen soft, nonten katt, bowel sounds audible. Extremiti es no edema.? Good range of motion b oth upper extremit ies Neuro nonfocal ,speech clear, nor mal cognition Skin no rash DS: Data Data Completed and Pending Labs on day of discharge: Laboratory Results - last 24 hr 05/30/21 05/30/21 06:42 06:42 WBC 14.0 H RBC 3.98 L Hgb 13.2 Hct 39.5 MCV 99.2 H MCH 33.2 H MCHC 33.4 RDW 13.1 Plt Count 482 H MPV 10.3 Immature Gran % (Auto) 2.1 H Neut % (Auto) 54.4 Lymph % (Auto) 31.4 [place] % (Auto) 8.1 Eos % (Auto) 3.2 Baso % (Auto) 0.8 Lymph # (Auto) 4.4 [place] # (Auto) 1.1 Eos # (Auto) 0.5 H Baso # (Auto) 0.1 Abs Immat Gran (auto) 0.29 H Absolute Neuts (auto) 7.6 Absolute Nucleated RBC 0.000 Nucleated RBC % (auto) 0.0 Sodium 136 Potassium 5.4 H Chloride 108 Carbon Dioxide 17 L Anion Gap 16 BUN 30 H Creatinine 0.73 Estim Creat Clear Calc 56.3 Estimated GFR > 60 Random Glucose 98 Calcium 9.5 Preliminary micro results at discharge 05/27/21 14:44 Blood Culture - Preliminary Blood - Venous No growth after 48 hours. 05/27/21 14:48 Blood Culture - Preliminary Blood - Venous No growth after 48 hours. Discharge Plan Discharge Patient Disposition: Xfer Psychiatric Hosp Discharge Diagnosis: Acute renal injury Urinary tract infection Suicidal ideation Chronic pain syndrome Hypertension Referrals: Ester Robles MD [Primary Care Provider] - 1 Week Discharge Medications: New cefuroxime axetil 500 mg tablet 500 mg PO Q12H Qty: 8 RF: 0 acetaminophen 325 mg Tablet 650 mg PO Q6H PRN (Reason: Pain, Mild (Pain Scale 1-3)) Qty: 30 RF: 0 sodium bicarbonate 650 mg Tablet 650 mg PO BID Qty: 6 RF: 0 Continued hydrocodone-acetaminophen 5-325 mg tablet 1 tab PO Q6H PRN (Reason: pain) Qty: 7 RF: 0 lidocaine [Lidoderm] 5 % adhesive patch,medicated 1 patch topical DAILY Qty: 15 RF: 0 tizanidine 2 mg tablet 1 tab PO TID PRN (Reason: muscle spasm) RF: 0 amlodipine 5 mg tablet 1 tab PO DAILY RF: 0 levothyroxine 100 mcg tablet 1 tab PO DAILY RF: 0 pravastatin 80 mg tablet 1 tab PO BEDTIME RF: 0 lorazepam 0.5 mg tablet 1 tab PO TID RF: 0 duloxetine 60 mg capsule,delayed release(DR/EC) 1 cap PO DAILY RF: 0 Discontinued lisinopril-hydrochlorothiazide 20-25 mg tablet 1 tab PO DAILY RF: 0 Discharge Orders: Discharge Order (Routine); Ordered 05/30/21 Ordered By: Saul Suarez Diet: low fat, low cholesterol Activity on Discharge: As tolerated Stand Alone Forms: Patient Portal Discharge page Care Plan Goals: Urinary tract infection take by mouth antibiotic as prescribed, acute renal failure resolved, for suicidal ideation being transferred to [facility] psych check BMP at [facility] Concerns: Hypertension/chronic neck pain Plan of Treatment: Outpatient follow-up with primary care physician and Psychiatry
[2021-05-30 11:50] VITALS: BP 129/64; PULSE 92; RESP 18; TEMP 36.5; O2SAT 98
[2021-05-30] MEDS: Sodium Polystyrene Sulfon/Sorb 15 GM/60 ML ORAL.SUSP PO (12:25)
--- NOTE | 2021-05-30 12:42 | MHC.CM.PN ---
PATIENT IS MEDICALLY CLEARED FOR DC AND IS NOW AN INPATIENT GERIATRIC PSYCHIATRIC BED SEARCH. RN AWARE.
[2021-05-30 13:16] VITALS: BP 129/64; PULSE 92; O2SAT 98
== END 2021-05-30 15:45 | DRG 690 ==
LOC: HO.ED 17:12 → HO.S3 22:50
PROVIDERS: Admitting Provider Internal Medicine; Emergency Provider Emergency Medicine Emergency Medical Services; PCP Internal Medicine; Visit Provider Hospitalist
DX: N39.0 Urinary tract infection, site not specified (principal); N17.9 Acute kidney failure, unspecified; E87.2 Acidosis; R45.851 Suicidal ideations; E87.5 Hyperkalemia; B96.89 Other specified bacterial agents as the cause of diseases classified elsewhere; G89.4 Chronic pain syndrome; E86.0 Dehydration; D72.829 Elevated white blood cell count, unspecified; Z20.822 Contact with and (suspected) exposure to COVID-19; I95.9 Hypotension, unspecified; I10 Essential (primary) hypertension; Z79.890 Hormone replacement therapy; Z79.899 Other long term (current) drug therapy
CPT/HCPCS: 0241U; 36415; 70450; 71045; 72125; 74176; 80048; 80076; 80143; 80179; 81001; 81003; 82550; 83605; 85025; 85610; 87040; 87086; 87088; 87186; 93005; 97116; 97161; 99285; J0696; J1170

== ENCOUNTER 2021-05-30 16:03 | Inpatient (IN) | payer MEDICARE, MEDICAID, SELFPAY ==
[2021-05-30 18:00] VITALS: BP 153/75; PULSE 94; TEMP 37; O2SAT 94
[2021-05-30] MEDS: Pravastatin Sodium 80 MG TABLET PO (20:27)
[2021-05-30] MEDS: Heparin Sodium,Porcine 5,000 UNIT/ML VIAL 5000 UNIT SUBCUT (20:28)
[2021-05-30] MEDS: Sodium Bicarbonate 650 MG TABLET PO (20:28)
[2021-05-30] MEDS: HYDROcodone Bit/Acetam 5/325 TABLET 1 TAB PO (20:39)
[2021-05-30] MEDS: LORazepam 0.5 MG TABLET PO (20:40)
[2021-05-31] MEDS: Levothyroxine Sodium 100 MCG TABLET PO (06:16)
[2021-05-31] MEDS: Lidocaine 4 % Patch ADH..PATCH 1 PATCH TRANSDERMA (08:11)
[2021-05-31 08:51] VITALS: BP 158/77; PULSE 84; RESP 16; TEMP 36; O2SAT 95
[2021-05-31] MEDS: HYDROcodone Bit/Acetam 5/325 TABLET 1 TAB PO ×2 (08:53→19:22)
[2021-05-31] MEDS: Sodium Bicarbonate 650 MG TABLET PO ×2 (08:53→21:34)
[2021-05-31] MEDS: TiZANidine HCL 4 MG TABLET 2 MG PO ×2 (08:54→19:21)
[2021-05-31 08:55] VITALS: BP 158/77; PULSE 84
[2021-05-31] MEDS: Docusate Sodium 100 MG CAPSULE PO (08:55)
[2021-05-31] MEDS: amLODIPine Besylate 2.5 MG TABLET PO (08:55)
[2021-05-31] MEDS: LORazepam 0.5 MG TABLET PO ×3 (08:55→21:34)
[2021-05-31] MEDS: DULoxetine HCl 60 MG CAPSULE.DR PO (08:56)
[2021-05-31] MEDS: Heparin Sodium,Porcine 5,000 UNIT/ML VIAL 5000 UNIT SUBCUT (08:56)
--- NOTE | 2021-05-31 10:05 | HO.PSYADMNOT ---
HPI Chief Complaint: ? Sources of Information: patient interviewed, chart reviewed and crisis/core team assessment reviewed Additional Sources of Information: Daughter in law provide extra information HPI Narrative: The patient is an 85 year old female, , mother of adult children, retired, with good social support, transferred from medicine since she complained of suicidal ideation and depression. The patient was initially admitted for severe neck pain, dehydration and altered mental status. She was treated and medically stabilized but she reported feeling depressed due to the chronic pain and she reported that she wish I could . She also had several stressors, her a few months ago and she felt useless due to the pain. On admission, the patient reported depressed mood, anhedonia, lack of energy and severe pain. She was able to contract for safety and she denied psychotic symptoms. Apparently, while in Medicine, she had a UTI and she was confused, probably on delirium. Her [id number] provided extra information. She reported that the patient had been more dysphoric after the of her , and she has been complaining of more neck pain. She was abusing of [id number] medication and sometimes she was even delirious. Recently, in the last weeks the patient had been more tearful and she has had verbalized suicidal ideation Past Psychiatric History: She reported past outpatient treatment. As per [id number], she received outpatient providers but also a certain point she was on ECT more than 20 or 30 years ago. Medical Evaluation Reviewed: Yes [facility] Medical History Cervicalgia Chronic neck pain Chronic pain syndrome Hypertension Postlaminectomy syndrome of cervical region Spondylosis of cervical joint without myelopathy Surgical History H/O neck surgery Family History: Denies Social History: Born and rised in [facility], immigrant, now , with good social support, she has adult children and currently she is retired. Substance History: Denies Trauma History: Denies Diagnostics Vital Signs (24Hr): Vital Signs - 24 hr 05/30/21 18:00 05/31/21 08:51 05/31/21 08:55 Temperature 98.6 F 96.8 F Pulse Rate 94 84 84 Respiratory Rate 16 Blood Pressure 153/75 H 158/77 H 158/77 H Pulse Oximetry 94 95 Meds/Allergies Meds Home Medications Acetaminophen (Acetaminophen 325 Mg Tablet) 650 mg PO Q6H PRN PRN Reason: Pain, Mild (Pain Scale 1-3) Hydrocodone Bitart/Acetaminophen (Hydrocodone Bit/Acetam 5/325 Tablet) 1 tab PO Q6H PRN PRN Reason: pain Last Admin: 06/01/21 05:03 Dose: 1 tab Documented by: Al Hydroxide/Mg Hydroxide (Magnesium Hydrox/Alum Hydrox 30 Ml Oral.Susp) 30 ml PO Q6H PRN PRN Reason: Heartburn/Nausea Amlodipine Besylate (Amlodipine Besylate 2.5 Mg Tablet) 2.5 mg PO DAILY [facility]; Protocol Last Admin: 06/01/21 08:16 Dose: 2.5 mg Documented by: Docusate Sodium (Docusate Sodium 100 Mg Capsule) 100 mg PO DAILY PRN PRN Reason: Constipation Last Admin: 06/01/21 08:16 Dose: 100 mg Documented by: Duloxetine HCl (Duloxetine Hcl 60 Mg Capsule.Dr) 60 mg PO DAILY [facility] Last Admin: 06/01/21 08:17 Dose: 60 mg Documented by: Heparin Sodium (Porcine) (Heparin Sodium,Porcine 5,000 Unit/Ml Vial) 5,000 unit SUBCUT BID [facility] Last Admin: 06/01/21 08:17 Dose: 5,000 unit Documented by: Hydroxyzine HCl (Hydroxyzine Hcl 25 Mg Tablet) 25 mg PO BEDTIME PRN PRN Reason: Anxiety Levothyroxine Sodium (Levothyroxine Sodium 100 Mcg Tablet) 100 mcg PO DAILY@0630 [facility] Last Admin: 06/01/21 05:04 Dose: 100 mcg Documented by: Lidocaine (Lidocaine 4 % Patch Adh..Patch) 1 patch TRANSDERMA DAILY [facility] Last Admin: 06/01/21 08:15 Dose: 1 patch Documented by: Lorazepam (Lorazepam 0.5 Mg Tablet) 0.5 mg PO TID [facility] Last Admin: 06/01/21 08:17 Dose: 0.5 mg Documented by: Magnesium Hydroxide (Milk Of Magnesia 30 Ml Oral.Susp) 30 ml PO DAILY PRN PRN Reason: Constipation Ondansetron HCl (Ondansetron Hcl 4 Mg/2 Ml Vial) 4 mg IVPUSH Q8H PRN PRN Reason: Nausea and Vomiting Pharmacy Consult (Consult Rx Perform Med Rec) 1 each MISCELLANE ONCE PRN PRN Reason: Consult order Pravastatin Sodium (Pravastatin Sodium 80 Mg Tablet) 80 mg PO BEDTIME [facility] Last Admin: 05/31/21 21:34 Dose: 80 mg Documented by: Sodium Bicarbonate (Sodium Bicarbonate 650 Mg Tablet) 650 mg PO BID [facility] Last Admin: 06/01/21 08:17 Dose: 650 mg Documented by: Tizanidine HCl (Tizanidine Hcl 4 Mg Tablet) 2 mg PO TID PRN PRN Reason: muscle spasm Last Admin: 06/01/21 05:01 Dose: 2 mg Documented by: Trazodone HCl (Trazodone Hcl 50 Mg Tablet) 50 mg PO BEDTIME PRN PRN Reason: Insomnia Allergies Allergies Allergy/AdvReac Type Severity Reaction Status Date / Time No Known Allergies Allergy Verified 04/14/21 09:44 Mental Status Exam Mental Status Exam Patient Appearance: Well Grooomed (on hospital gowns) Patient Orientation: Person and Situation Level of Consciousness: Awake Patient Behavior: Cooperative Mood Description: Withdrawn Affect Description: Constricted Ability to Follow Directions: Good Speech Pattern: Clear Hallucinations: None Delusions: Not Present Thought Process: Distracted (circumstantial) Thought Content: positive for Intact Depressive Symptoms: Increased Anxiety and Increased Irritability Judgement: Fair Assessment & Plan Assessment & Plan (1) Depression: Status: Acute Code(s): F32.9 - Major depressive disorder, single episode, unspecified Assessment and Plan: Elderly female with a past history of dysphoria but highly functional at baseline, ,transferred from medicine due to suicidal ideation verbalized in the context of severe pain Patient educated on: diagnosis, therapeutic strategies and medical condition Informed Consent: understands Reason for continued inpatient stay Substantial Risk for: harm to self, inability to function, rapid decompensation and med/psych decompensation
[2021-05-31 18:00] VITALS: BP 129/69; PULSE 87; RESP 16; TEMP 36.2; O2SAT 99
[2021-05-31] MEDS: Pravastatin Sodium 80 MG TABLET PO (21:34)
[2021-06-01] MEDS: TiZANidine HCL 4 MG TABLET 2 MG PO (05:01)
[2021-06-01] MEDS: HYDROcodone Bit/Acetam 5/325 TABLET 1 TAB PO ×3 (05:03→20:10)
[2021-06-01] MEDS: Levothyroxine Sodium 100 MCG TABLET PO (05:04)
[2021-06-01 08:13] VITALS: BP 141/78; PULSE 84; RESP 16; TEMP 36.7; O2SAT 98
[2021-06-01] MEDS: Lidocaine 4 % Patch ADH..PATCH 1 PATCH TRANSDERMA (08:15)
[2021-06-01 08:16] VITALS: BP 141/78; PULSE 84
[2021-06-01] MEDS: Docusate Sodium 100 MG CAPSULE PO (08:16)
[2021-06-01] MEDS: amLODIPine Besylate 2.5 MG TABLET PO (08:16)
[2021-06-01] MEDS: DULoxetine HCl 60 MG CAPSULE.DR PO (08:17)
[2021-06-01] MEDS: Heparin Sodium,Porcine 5,000 UNIT/ML VIAL 5000 UNIT SUBCUT ×2 (08:17→20:21)
[2021-06-01] MEDS: LORazepam 0.5 MG TABLET PO ×3 (08:17→20:20)
[2021-06-01] MEDS: Sodium Bicarbonate 650 MG TABLET PO ×2 (08:17→20:25)
--- NOTE | 2021-06-01 09:09 | HO.PSYCHPN ---
Subjective Subjective Date of Service: 06/01/21 Reason For Visit: ? Interim History: Nursing staff reported that the patient was perseverative with her chronic neck pain and how she injured her neck. She was tearful in the evening. We discussed with the patient treatment options and she agreed on the plan of increasing her Cymbalta and start gabapentin for chronic nerve pain. Review of Systems Acute medical concerns: No Medical Review of Systems: unchanged Mental Status Exam Mental Status Exam Patient Appearance: Well Grooomed (On hospital gowns) Patient Orientation: Person and Situation Level of Consciousness: Awake Patient Behavior: Appropriate and Cooperative Mood Description: Calm and Depressed Affect Description: Constricted Patient Cognition Impaired: No Ability to Follow Directions: Good Speech Pattern: Clear (With the strong [place] accent) Hallucinations: None Delusions: Not Present Thought Process: Rumination and Linear Thought Content: positive for Obsessional Thoughts, positive for Perseveration and positive for Poverty of Content Judgement: Fair Diagnostics Vital Signs (24Hr): Vital Signs - 24 hr 05/31/21 18:00 06/01/21 08:13 06/01/21 08:16 Temperature 97.2 F 98.0 F Pulse Rate 87 84 84 Respiratory Rate 16 16 Blood Pressure 129/69 141/78 H 141/78 H Pulse Oximetry 99 98 Medications Medications Current Medications Generic Name Dose Route Start Last Admin Trade Name Talibq PRN Reason Stop Dose Admin Acetaminophen 650 mg 05/30/21 18:17 Acetaminophen 325 Mg Tablet PO Q6H PRN Pain, Mild (Pain Scale 1-3) Hydrocodone Bitart/Acetaminophen 1 tab 05/30/21 18:17 06/01/21 05:03 Hydrocodone Bit/Acetam 5/325 Tablet PO 1 tab Q6H PRN Administration pain Al Hydroxide/Mg Hydroxide 30 ml 05/30/21 18:17 Magnesium Hydrox/Alum Hydrox 30 Ml Oral.Susp PO Q6H PRN Heartburn/Nausea Amlodipine Besylate 2.5 mg 05/31/21 09:00 06/01/21 08:16 Amlodipine Besylate 2.5 Mg Tablet PO 2.5 mg DAILY [facility] Administration Protocol Docusate Sodium 100 mg 05/30/21 18:17 06/01/21 08:16 Docusate Sodium 100 Mg Capsule PO 100 mg DAILY PRN Administration Constipation Duloxetine HCl 60 mg 05/31/21 09:00 06/01/21 08:17 Duloxetine Hcl 60 Mg Capsule.Dr PO 60 mg DAILY [facility] Administration Heparin Sodium (Porcine) 5,000 unit 05/30/21 21:00 06/01/21 08:17 Heparin Sodium,Porcine 5,000 Unit/Ml Vial SUBCUT 5,000 unit BID [facility] Administration Hydroxyzine HCl 25 mg 05/30/21 18:17 Hydroxyzine Hcl 25 Mg Tablet PO BEDTIME PRN Anxiety Levothyroxine Sodium 100 mcg 05/31/21 06:30 06/01/21 05:04 Levothyroxine Sodium 100 Mcg Tablet PO 100 mcg DAILY@0630 [facility] Administration Lidocaine 1 patch 05/31/21 09:00 06/01/21 08:15 Lidocaine 4 % Patch Adh..Patch TRANSDERMA 1 patch DAILY [facility] Administration Lorazepam 0.5 mg 05/30/21 21:00 06/01/21 08:17 Lorazepam 0.5 Mg Tablet PO 0.5 mg TID [facility] Administration Magnesium Hydroxide 30 ml 05/30/21 18:17 Milk Of Magnesia 30 Ml Oral.Susp PO DAILY PRN Constipation Ondansetron HCl 4 mg 05/30/21 18:17 Ondansetron Hcl 4 Mg/2 Ml Vial IVPUSH Q8H PRN Nausea and Vomiting Pharmacy Consult 1 each 05/30/21 18:17 Consult Rx Perform Med Rec MISCELLANE ONCE PRN Consult order Pravastatin Sodium 80 mg 05/30/21 21:00 05/31/21 21:34 Pravastatin Sodium 80 Mg Tablet PO 80 mg BEDTIME [facility] Administration Sodium Bicarbonate 650 mg 05/30/21 21:00 06/01/21 08:17 Sodium Bicarbonate 650 Mg Tablet PO 650 mg BID [facility] Administration Tizanidine HCl 2 mg 05/30/21 18:17 06/01/21 05:01 Tizanidine Hcl 4 Mg Tablet PO 2 mg TID PRN Administration muscle spasm Trazodone HCl 50 mg 05/30/21 18:17 Trazodone Hcl 50 Mg Tablet PO BEDTIME PRN Insomnia Allergies Allergies Allergy/AdvReac Type Severity Reaction Status Date / Time No Known Allergies Allergy Verified 04/14/21 09:44 Assessment & Plan Assessment & Plan (1) Depression: Status: Acute Code(s): F32.9 - Major depressive disorder, single episode, unspecified Assessment and Plan: Elderly female with a past history of dysphoria but highly functional at baseline, ,transferred from medicine due to suicidal ideation verbalized in the context of severe pain Plan 1. Increased Cymbalta up to 30 mg p.o. q.a.m. and 60 mg p.o. q.h.s.. 2. Gabapentin 100 mg p.o. b.i.d. to target chronic pain. 3. Gather collateral information. Greater than 50% of the session was spent on counseling and/or coordination of care Reason for contiued inpatient stay Substantial Risk for: harm to self, inability to function, rapid decompensation and med/psych decompensation
[2021-06-01] MEDS: Gabapentin 100 MG CAPSULE PO ×2 (15:11→20:21)
[2021-06-01 19:27] VITALS: BP 143/64; PULSE 86; RESP 16; TEMP 36.7; O2SAT 97
[2021-06-01] MEDS: Acetaminophen 325 MG TABLET 650 MG PO (20:10)
[2021-06-01] MEDS: Pravastatin Sodium 80 MG TABLET PO (20:20)
[2021-06-01] MEDS: DULoxetine HCl 30 MG CAPSULE.DR PO (20:21)
[2021-06-02] MEDS: Levothyroxine Sodium 100 MCG TABLET PO (05:48)
[2021-06-02 05:54] VITALS: BP 137/64; PULSE 74; RESP 16; TEMP 36.6; O2SAT 96
[2021-06-02] MEDS: HYDROcodone Bit/Acetam 5/325 TABLET 1 TAB PO ×2 (06:01→17:49)
[2021-06-02 07:00] VITALS: BP 125/69; PULSE 77; RESP 18; TEMP 36.6
[2021-06-02] MEDS: LORazepam 0.5 MG TABLET PO ×3 (09:07→20:47)
[2021-06-02] MEDS: DULoxetine HCl 60 MG CAPSULE.DR PO (09:07)
[2021-06-02] MEDS: Gabapentin 100 MG CAPSULE PO ×3 (09:07→20:47)
[2021-06-02] MEDS: Heparin Sodium,Porcine 5,000 UNIT/ML VIAL 5000 UNIT SUBCUT ×2 (09:08→20:47)
[2021-06-02 09:09] VITALS: BP 125/69; PULSE 77
[2021-06-02] MEDS: amLODIPine Besylate 2.5 MG TABLET PO (09:09)
[2021-06-02] MEDS: Lidocaine 4 % Patch ADH..PATCH 1 PATCH TRANSDERMA (09:09)
[2021-06-02] MEDS: Sodium Bicarbonate 650 MG TABLET PO ×2 (09:11→20:47)
--- NOTE | 2021-06-02 11:40 | P.PNPSI_ITS ---
Subjective Subjective Date of Service: 06/03/21 Reason For Visit: ? Subjective Notes: Conditional Voluntary Interim History: Nursing staff reported that the patient has been cooperative and pleasant in the unit. She states most of the time on her bed with lack of e nergy. On interview, she reported that she is feeling sad, with lack of energy and chronic pain on her neck. We discussed options she agreed on the plan below. casino gaming worker will arrange a family meeting pretty soon. Review of Systems Acute medical concerns: No Medical Review of Systems: unchanged Mental Status Exam Mental Status Exam Patient Appearance: Well Grooomed (On hospital gowns) Patient Orientation: Person and Situation Level of Consciousness: Awake Patient Behavior: Cooperative and Passive Mood Description: Withdrawn Affect Description: Constricted Ability to Follow Directions: Good Speech Pattern: Clear (With a strong [place] Islander accent) Hallucinations: None Delusions: Not Present Thought Process: Linear Judgement: Fair Diagnostics Vital Signs (24Hr): Vital Signs - 24 hr 06/01/21 19:27 06/02/21 05:54 06/02/21 07:00 Temperature 98.1 F 98 F 97.8 F Pulse Rate 86 74 77 Respiratory Rate 16 16 18 Blood Pressure 143/64 H 137/64 125/69 Pulse Oximetry 97 96 06/02/21 09:09 Temperature Pulse Rate 77 Respiratory Rate Blood Pressure 125/69 Pulse Oximetry Medications Medications Current Medications Generic Name Dose Route Start Last Admin Trade Name Freq PRN Reason Stop Dose Admin Acetaminophen 650 mg 05/30/21 18:17 06/01/21 20:10 Acetaminophen 325 Mg Tablet PO 650 mg Q6H PRN Administration Pain, Mild (Pain Scale 1-3) Hydrocodone Bitart/Acetaminophen 1 tab 05/30/21 18:17 06/02/21 06:01 Hydrocodone Bit/Acetam 5/325 Tablet PO 1 tab Q6H PRN Administration pain Al Hydroxide/Mg Hydroxide 30 ml 05/30/21 18:17 Magnesium Hydrox/Alum Hydrox 30 Ml Oral.Susp PO Q6H PRN Heartburn/Nausea Amlodipine Besylate 2.5 mg 05/31/21 09:00 06/02/21 09:09 Amlodipine Besylate 2.5 Mg Tablet PO 2.5 mg DAILY [facility] Administration Protocol Docusate Sodium 100 mg 05/30/21 18:17 06/01/21 08:16 Docusate Sodium 100 Mg Capsule PO 100 mg DAILY PRN Administration Constipation Duloxetine HCl 60 mg 05/31/21 09:00 06/02/21 09:07 Duloxetine Hcl 60 Mg Capsule. PO 60 mg DAILY [facility] Administration Duloxetine HCl 30 mg 06/01/21 21:00 06/01/21 20:21 Duloxetine Hcl 30 Mg Capsule. PO 30 mg BEDTIME [facility] Administration Gabapentin 100 mg 06/01/21 15:00 06/02/21 09:07 Gabapentin 100 Mg Capsule PO 100 mg TID [facility] Administration Heparin Sodium (Porcine) 5,000 unit 05/30/21 21:00 06/02/21 09:08 Heparin Sodium,Porcine 5,000 Unit/Ml Vial SUBCUT 5,000 unit BID [facility] Administration Hydroxyzine HCl 25 mg 05/30/21 18:17 Hydroxyzine Hcl 25 Mg Tablet PO BEDTIME PRN Anxiety Levothyroxine Sodium 100 mcg 05/31/21 06:30 06/02/21 05:48 Levothyroxine Sodium 100 Mcg Tablet PO 100 mcg DAILY@0630 [facility] Administration Lidocaine 1 patch 05/31/21 09:00 06/02/21 09:09 Lidocaine 4 % Patch Adh..Patch TRANSDERMA 1 patch DAILY [facility] Administration Lorazepam 0.5 mg 05/30/21 21:00 06/02/21 09:07 Lorazepam 0.5 Mg Tablet PO 0.5 mg TID [facility] Administration Magnesium Hydroxide 30 ml 05/30/21 18:17 Milk Of Magnesia 30 Ml Oral.Susp PO DAILY PRN Constipation Ondansetron HCl 4 mg 05/30/21 18:17 Ondansetron Hcl 4 Mg/2 Ml Vial IVPUSH Q8H PRN Nausea and Vomiting Pharmacy Consult 1 each 05/30/21 18:17 Consult Rx Perform Med Rec MISCELLANE ONCE PRN Consult order Pravastatin Sodium 80 mg 05/30/21 21:00 06/01/21 20:20 Pravastatin Sodium 80 Mg Tablet PO 80 mg BEDTIME [facility] Administration Sodium Bicarbonate 650 mg 05/30/21 21:00 06/02/21 09:11 Sodium Bicarbonate 650 Mg Tablet PO 650 mg BID [facility] Administration Tizanidine HCl 2 mg 05/30/21 18:17 06/01/21 05:01 Tizanidine Hcl 4 Mg Tablet PO 2 mg TID PRN Administration muscle spasm Trazodone HCl 50 mg 05/30/21 18:17 Trazodone Hcl 50 Mg Tablet PO BEDTIME PRN Insomnia Allergies Allergies Allergy/AdvReac Type Severity Reaction Status Date / Time No Known Allergies Allergy Verified 04/14/21 09:44 Assessment & Plan Assessment & Plan (1) Depression: Status: Acute Code(s): F32.9 - Major depressive disorder, single episode, unspecified Assessment and Plan: Elderly female with a past history of dysphoria but highly functional at baseline, ,transferred from medicine due to suicidal ideation verbalized in the context of severe pain Plan 1. Increased Cymbalta up to 30 mg p.o. q.a.m. and 60 mg p.o. q.h.s.. 2. Gabapentin 100 mg p.o. b.i.d. to target chronic pain. 3. Gather collateral information. Greater than 50% of the session was spent on counseling and/or coordination of care Reason for contiued inpatient stay Substantial Risk for: harm to self, inability to function, rapid decompensation and med/psych decompensation
[2021-06-02] MEDS: TiZANidine HCL 4 MG TABLET 2 MG PO (17:49)
[2021-06-02 20:10] VITALS: BP 93/54; PULSE 75; RESP 16; TEMP 36.3; O2SAT 96
[2021-06-02] MEDS: Pravastatin Sodium 80 MG TABLET PO (20:47)
[2021-06-02] MEDS: DULoxetine HCl 30 MG CAPSULE.DR PO (20:47)
[2021-06-03] MEDS: Levothyroxine Sodium 100 MCG TABLET PO (05:50)
[2021-06-03 06:00] VITALS: BP 143/66; PULSE 78; RESP 18; TEMP 36.7; O2SAT 98
[2021-06-03 09:02] VITALS: BP 138/68; PULSE 68
[2021-06-03] MEDS: DULoxetine HCl 60 MG CAPSULE.DR PO (09:02)
[2021-06-03] MEDS: amLODIPine Besylate 2.5 MG TABLET PO (09:02)
[2021-06-03] MEDS: LORazepam 0.5 MG TABLET PO ×3 (09:03→21:20)
[2021-06-03] MEDS: Gabapentin 100 MG CAPSULE PO ×3 (09:03→21:21)
[2021-06-03] MEDS: Sodium Bicarbonate 650 MG TABLET PO ×2 (09:03→21:18)
[2021-06-03] MEDS: Heparin Sodium,Porcine 5,000 UNIT/ML VIAL 5000 UNIT SUBCUT ×2 (09:06→21:21)
[2021-06-03] MEDS: HYDROcodone Bit/Acetam 5/325 TABLET 1 TAB PO ×2 (13:34→21:20)
[2021-06-03] MEDS: Magnesium Hydrox/Alum Hydrox 30 ML ORAL.SUSP PO (13:34)
--- NOTE | 2021-06-03 13:56 | HO.PSYCHPN ---
Subjective Subjective Date of Service: 06/03/21 Reason For Visit: Depression, suicidal ideation Subjective Notes: Conditional Voluntary Interim History: The patient remains most of the time in her room. On interview the patient complained of chronic back pain and she was even tearful. She stated that the pain is the thing that bothers her most. According to her family, the patient has pain management services in the community. The patient denies side effects with the current medication. Attending Groups: No Review of Systems Acute medical concerns: No Medical Review of Systems: unchanged Mental Status Exam Mental Status Exam Patient Appearance: Well Grooomed Patient Orientation: Person and Place Level of Consciousness: Awake Patient Behavior: Cooperative Mood Description: Constricted and Depressed Affect Description: Constricted Ability to Follow Directions: Good Speech Pattern: Clear Delusions: Not Present Thought Process: Linear Thought Content: positive for Obsessional Thoughts and positive for Poverty of Content Judgement: Fair Diagnostics Vital Signs (24Hr): Vital Signs - 24 hr 06/02/21 20:10 06/03/21 06:00 06/03/21 09:02 Temperature 97.4 F 98.1 F Pulse Rate 75 78 68 Respiratory Rate 16 18 Blood Pressure 93/54 L 143/66 H 138/68 Pulse Oximetry 96 98 Medications Medications Current Medications Generic Name Dose Route Start Last Admin Trade Name Freq PRN Reason Stop Dose Admin Acetaminophen 650 mg 05/30/21 18:17 06/01/21 20:10 Acetaminophen 325 Mg Tablet PO 650 mg Q6H PRN Administration Pain, Mild (Pain Scale 1-3) Hydrocodone Bitart/Acetaminophen 1 tab 05/30/21 18:17 06/03/21 13:34 Hydrocodone Bit/Acetam 5/325 Tablet PO 1 tab Q6H PRN Administration pain Al Hydroxide/Mg Hydroxide 30 ml 05/30/21 18:17 06/03/21 13:34 Magnesium Hydrox/Alum Hydrox 30 Ml Oral.Susp PO 30 ml Q6H PRN Administration Heartburn/Nausea Amlodipine Besylate 2.5 mg 05/31/21 09:00 06/03/21 09:02 Amlodipine Besylate 2.5 Mg Tablet PO 2.5 mg DAILY [facility] Administration Protocol Docusate Sodium 100 mg 05/30/21 18:17 06/01/21 08:16 Docusate Sodium 100 Mg Capsule PO 100 mg DAILY PRN Administration Constipation Duloxetine HCl 60 mg 05/31/21 09:00 06/03/21 09:02 Duloxetine Hcl 60 Mg Capsule. PO 60 mg DAILY [facility] Administration Duloxetine HCl 30 mg 06/01/21 21:00 06/02/21 20:47 Duloxetine Hcl 30 Mg Capsule. PO 30 mg BEDTIME [facility] Administration Gabapentin 100 mg 06/01/21 15:00 06/03/21 09:03 Gabapentin 100 Mg Capsule PO 100 mg TID [facility] Administration Heparin Sodium (Porcine) 5,000 unit 05/30/21 21:00 06/03/21 09:06 Heparin Sodium,Porcine 5,000 Unit/Ml Vial SUBCUT 5,000 unit BID [facility] Administration Hydroxyzine HCl 25 mg 05/30/21 18:17 Hydroxyzine Hcl 25 Mg Tablet PO BEDTIME PRN Anxiety Levothyroxine Sodium 100 mcg 05/31/21 06:30 06/03/21 05:50 Levothyroxine Sodium 100 Mcg Tablet PO 100 mcg DAILY@0630 [facility] Administration Lidocaine 1 patch 05/31/21 09:00 06/03/21 11:30 Lidocaine 4 % Patch Adh..Patch TRANSDERMA Not Given DAILY [facility] Lorazepam 0.5 mg 05/30/21 21:00 06/03/21 09:03 Lorazepam 0.5 Mg Tablet PO 0.5 mg TID [facility] Administration Magnesium Hydroxide 30 ml 05/30/21 18:17 Milk Of Magnesia 30 Ml Oral.Susp PO DAILY PRN Constipation Ondansetron HCl 4 mg 05/30/21 18:17 Ondansetron Hcl 4 Mg/2 Ml Vial IVPUSH Q8H PRN Nausea and Vomiting Pharmacy Consult 1 each 05/30/21 18:17 Consult Rx Perform Med Rec MISCELLANE ONCE PRN Consult order Pravastatin Sodium 80 mg 05/30/21 21:00 06/02/21 20:47 Pravastatin Sodium 80 Mg Tablet PO 80 mg BEDTIME [facility] Administration Sodium Bicarbonate 650 mg 05/30/21 21:00 06/03/21 09:03 Sodium Bicarbonate 650 Mg Tablet PO 650 mg BID [facility] Administration Tizanidine HCl 2 mg 05/30/21 18:17 06/02/21 17:49 Tizanidine Hcl 4 Mg Tablet PO 2 mg TID PRN Administration muscle spasm Trazodone HCl 50 mg 05/30/21 18:17 Trazodone Hcl 50 Mg Tablet PO BEDTIME PRN Insomnia Allergies Allergies Allergy/AdvReac Type Severity Reaction Status Date / Time No Known Allergies Allergy Verified 04/14/21 09:44 Assessment & Plan Assessment & Plan (1) Depression: Status: Acute Code(s): F32.9 - Major depressive disorder, single episode, unspecified Assessment and Plan: Elderly female with a past history of dysphoria but highly functional at baseline, ,transferred from medicine due to suicidal ideation verbalized in the context of severe pain Plan 1. Keep Cymbalta up to 30 mg p.o. q.a.m. and 60 mg p.o. q.h.s.. 2. Keep Gabapentin 100 mg p.o. b.i.d. to target chronic pain. 3. Gather collateral information. Greater than 50% of the session was spent on counseling and/or coordination of care Reason for contiued inpatient stay Substantial Risk for: harm to self, inability to function, rapid decompensation and med/psych decompensation
[2021-06-03 18:26] VITALS: BP 142/73; PULSE 89; RESP 16; TEMP 35.7; O2SAT 96
[2021-06-03] MEDS: TiZANidine HCL 4 MG TABLET 2 MG PO (21:16)
[2021-06-03] MEDS: DULoxetine HCl 30 MG CAPSULE.DR PO (21:19)
[2021-06-03] MEDS: Pravastatin Sodium 80 MG TABLET PO (21:20)
[2021-06-04] MEDS: Levothyroxine Sodium 100 MCG TABLET PO (06:38)
[2021-06-04 08:05] VITALS: BP 166/74; PULSE 80; TEMP 36.7; O2SAT 97
[2021-06-04] MEDS: Heparin Sodium,Porcine 5,000 UNIT/ML VIAL 5000 UNIT SUBCUT (09:12)
[2021-06-04] MEDS: Gabapentin 100 MG CAPSULE PO (09:12)
[2021-06-04 09:13] VITALS: BP 166/74; PULSE 80
[2021-06-04] MEDS: Sodium Bicarbonate 650 MG TABLET PO ×2 (09:13→20:23)
[2021-06-04] MEDS: amLODIPine Besylate 2.5 MG TABLET PO (09:13)
[2021-06-04] MEDS: DULoxetine HCl 60 MG CAPSULE.DR PO ×2 (09:13→22:03)
[2021-06-04] MEDS: LORazepam 0.5 MG TABLET PO ×3 (09:13→20:23)
[2021-06-04] MEDS: TiZANidine HCL 4 MG TABLET 2 MG PO ×2 (09:15→17:50)
[2021-06-04] MEDS: Lidocaine 4 % Patch ADH..PATCH 1 PATCH TRANSDERMA (09:48)
--- NOTE | 2021-06-04 12:06 | P.PNPSI_ITS ---
Subjective Subjective Date of Service: 06/04/21 Reason For Visit: Depression, suicidal ideation Subjective Notes: Conditional Voluntary Interim History: Nursing staff has reported that the patient had neck pain and she was verbalize passive suicidal thoughts. Staff has noticed that the patient interacts with peers assertively. 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 We also found out that the patient's green card has and she is not eligible for long-term services. On interview, the patient complained of neck pain, I explained that we are going to use Cymbalta to target chronic pain and we will start the titration of, gabapentin. The patient is fully aware that she could to be over-sedated with this medication. Medication Compliance: Yes Side effects from medications: No Attending Groups: Intermittent Review of Systems Acute medical concerns: No Medical Review of Systems: unchanged Mental Status Exam Mental Status Exam Patient Appearance: Well Grooomed Patient Orientation: Person and Situation Level of Consciousness: Awake Patient Behavior: Talkative and Cooperative Mood Description: Depressed Affect Description: Constricted Patient Cognition Impaired: No Ability to Follow Directions: Good Speech Pattern: Clear Hallucinations: None Delusions: Not Present Thought Process: Linear and Evasive Thought Content: positive for Circumstantial Judgement: Fair Diagnostics Vital Signs (24Hr): Vital Signs - 24 hr 06/03/21 18:26 06/04/21 08:05 06/04/21 09:13 Temperature 96.2 F L 98.1 F Pulse Rate 89 80 80 Respiratory Rate 16 Blood Pressure 142/73 H 166/74 H 166/74 H Pulse Oximetry 96 97 Medications Medications Current Medications Generic Name Dose Route Start Last Admin Trade Name Talibq PRN Reason Stop Dose Admin Acetaminophen 650 mg 05/30/21 18:17 06/01/21 20:10 Acetaminophen 325 Mg Tablet PO 650 mg Q6H PRN Administration Pain, Mild (Pain Scale 1-3) Hydrocodone Bitart/Acetaminophen 1 tab 05/30/21 18:17 06/03/21 21:20 Hydrocodone Bit/Acetam 5/325 Tablet PO 1 tab Q6H PRN Administration pain Al Hydroxide/Mg Hydroxide 30 ml 05/30/21 18:17 06/03/21 13:34 Magnesium Hydrox/Alum Hydrox 30 Ml Oral.Susp PO 30 ml Q6H PRN Administration Heartburn/Nausea Amlodipine Besylate 2.5 mg 05/31/21 09:00 06/04/21 09:13 Amlodipine Besylate 2.5 Mg Tablet PO 2.5 mg DAILY AFSHIN Administration Protocol Docusate Sodium 100 mg 05/30/21 18:17 06/01/21 08:16 Docusate Sodium 100 Mg Capsule PO 100 mg DAILY PRN Administration Constipation Duloxetine HCl 60 mg 05/31/21 09:00 06/04/21 09:13 Duloxetine Hcl 60 Mg Capsule. PO 60 mg DAILY AFSHIN Administration Duloxetine HCl 60 mg 06/04/21 21:00 Duloxetine Hcl 60 Mg Capsule. PO BEDTIME AFSHIN Gabapentin 200 mg 06/04/21 15:00 Gabapentin 100 Mg Capsule PO TID AFSHIN Heparin Sodium (Porcine) 5,000 unit 05/30/21 21:00 06/04/21 09:12 Heparin Sodium,Porcine 5,000 Unit/Ml Vial SUBCUT 5,000 unit BID FASHIN Administration Hydroxyzine HCl 25 mg 05/30/21 18:17 Hydroxyzine Hcl 25 Mg Tablet PO BEDTIME PRN Anxiety Levothyroxine Sodium 100 mcg 05/31/21 06:30 06/04/21 06:38 Levothyroxine Sodium 100 Mcg Tablet PO 100 mcg DAILY@0630 AFSHIN Administration Lidocaine 1 patch 05/31/21 09:00 06/04/21 09:48 Lidocaine 4 % Patch Adh..Patch TRANSDERMA 1 patch DAILY AFSHIN Administration Lorazepam 0.5 mg 05/30/21 21:00 06/04/21 09:13 Lorazepam 0.5 Mg Tablet PO 0.5 mg TID AFSHIN Administration Magnesium Hydroxide 30 ml 05/30/21 18:17 Milk Of Magnesia 30 Ml Oral.Susp PO DAILY PRN Constipation Ondansetron HCl 4 mg 05/30/21 18:17 Ondansetron Hcl 4 Mg/2 Ml Vial IVPUSH Q8H PRN Nausea and Vomiting Pharmacy Consult 1 each 05/30/21 18:17 Consult Rx Perform Med Rec MISCELLANE ONCE PRN Consult order Pravastatin Sodium 80 mg 05/30/21 21:00 06/03/21 21:20 Pravastatin Sodium 80 Mg Tablet PO 80 mg BEDTIME AFSHIN Administration Sodium Bicarbonate 650 mg 05/30/21 21:00 06/04/21 09:13 Sodium Bicarbonate 650 Mg Tablet PO 650 mg BID AFSHIN Administration Tizanidine HCl 2 mg 05/30/21 18:17 06/04/21 09:15 Tizanidine Hcl 4 Mg Tablet PO 2 mg TID PRN Administration muscle spasm Trazodone HCl 50 mg 05/30/21 18:17 Trazodone Hcl 50 Mg Tablet PO BEDTIME PRN Insomnia Allergies Allergies Allergy/AdvReac Type Severity Reaction Status Date / Time No Known Allergies Allergy Verified 04/14/21 09:44 Assessment & Plan Assessment & Plan (1) Depression: Status: Acute Code(s): F32.9 - Major depressive disorder, single episode, unspecified Assessment and Plan: Elderly female with a past history of dysphoria but highly functional at baseline, ,transferred from medicine due to suicidal ideation verbalized in the context of severe pain Plan 1. Increase Cymbalta up to 60 mg p.o. q.a.m. and 60 mg p.o. q.h.s.. 2. Increase Gabapentin up to 200 mg p.o. b.i.d. to target chronic pain. 3. Gather collateral information. 4. Family meeting over the phone. Greater than 50% of the session was spent on counseling and/or coordination of care Reason for contiued inpatient stay Substantial Risk for: inability to function, rapid decompensation and med/psych decompensation
[2021-06-04] MEDS: Gabapentin 100 MG CAPSULE 200 MG PO ×2 (14:18→20:23)
[2021-06-04 18:00] VITALS: BP 137/60; PULSE 87; RESP 17; TEMP 37; O2SAT 94
[2021-06-04] MEDS: Pravastatin Sodium 80 MG TABLET PO (20:24)
[2021-06-05 06:00] VITALS: BP 137/63; PULSE 77; RESP 16; TEMP 36.2; O2SAT 98
[2021-06-05] MEDS: Levothyroxine Sodium 100 MCG TABLET PO (06:07)
[2021-06-05] MEDS: TiZANidine HCL 4 MG TABLET 2 MG PO ×3 (06:11→22:30)
[2021-06-05] MEDS: Sodium Bicarbonate 650 MG TABLET PO ×2 (09:05→20:10)
[2021-06-05] MEDS: Gabapentin 100 MG CAPSULE 200 MG PO (09:05)
[2021-06-05 09:06] VITALS: BP 137/63; PULSE 77
[2021-06-05] MEDS: amLODIPine Besylate 2.5 MG TABLET PO (09:06)
[2021-06-05] MEDS: DULoxetine HCl 60 MG CAPSULE.DR PO ×2 (09:06→20:10)
[2021-06-05] MEDS: Heparin Sodium,Porcine 5,000 UNIT/ML VIAL 5000 UNIT SUBCUT ×2 (09:08→20:09)
[2021-06-05] MEDS: Lidocaine 4 % Patch ADH..PATCH 1 PATCH TRANSDERMA (09:30)
--- NOTE | 2021-06-05 12:28 | HO.PSYCHPN ---
Subjective Subjective Date of Service: 06/05/21 Reason For Visit: Depression, suicidal ideation Subjective Notes: Conditional Voluntary Interim History: As per staff, the patient attended only 1 group. She complains of chronic back pain. We will have a family meeting over the phone at 23:00 tomorrow. On interview, the patient complained of chronic pain and she wanted to leave the facility. She agreed to increase Gabapentin up to 300 mg po tid and she is aware of the risk of oversedation. Review of Systems Acute medical concerns: No Medical Review of Systems: unchanged Mental Status Exam Mental Status Exam Patient Appearance: Well Grooomed Patient Orientation: Person Level of Consciousness: Awake and Appropriate Patient Behavior: Cooperative Mood Description: Depressed Affect Description: Constricted Patient Cognition Impaired: Yes Ability to Follow Directions: Good Speech Pattern: Clear Hallucinations: None Delusions: Not Present Thought Process: Linear and Evasive Thought Content: positive for Circumstantial Judgement: Fair Diagnostics Vital Signs (24Hr): Vital Signs - 24 hr 06/04/21 18:00 06/05/21 06:00 06/05/21 09:06 Temperature 98.6 F 97.2 F Pulse Rate 87 77 77 Respiratory Rate 17 16 Blood Pressure 137/60 137/63 137/63 Pulse Oximetry 94 98 Medications Medications Current Medications Generic Name Dose Route Start Last Admin Trade Name Freq PRN Reason Stop Dose Admin Acetaminophen 650 mg 05/30/21 18:17 06/01/21 20:10 Acetaminophen 325 Mg Tablet PO 650 mg Q6H PRN Administration Pain, Mild (Pain Scale 1-3) Al Hydroxide/Mg Hydroxide 30 ml 05/30/21 18:17 06/03/21 13:34 Magnesium Hydrox/Alum Hydrox 30 Ml Oral.Susp PO 30 ml Q6H PRN Administration Heartburn/Nausea Amlodipine Besylate 2.5 mg 05/31/21 09:00 06/05/21 09:06 Amlodipine Besylate 2.5 Mg Tablet PO 2.5 mg DAILY AFSHIN Administration Protocol Docusate Sodium 100 mg 05/30/21 18:17 06/01/21 08:16 Docusate Sodium 100 Mg Capsule PO 100 mg DAILY PRN Administration Constipation Duloxetine HCl 60 mg 05/31/21 09:00 06/05/21 09:06 Duloxetine Hcl 60 Mg Capsule.Dr PO 60 mg DAILY AFSHIN Administration Duloxetine HCl 60 mg 06/04/21 21:00 06/04/21 22:03 Duloxetine Hcl 60 Mg Capsule.Dr PO 60 mg BEDTIME AFSHIN Administration Gabapentin 200 mg 06/04/21 15:00 06/05/21 09:05 Gabapentin 100 Mg Capsule PO 200 mg TID AFSHIN Administration Heparin Sodium (Porcine) 5,000 unit 05/30/21 21:00 06/05/21 09:08 Heparin Sodium,Porcine 5,000 Unit/Ml Vial SUBCUT 5,000 unit BID AFSHIN Administration Hydroxyzine HCl 25 mg 05/30/21 18:17 Hydroxyzine Hcl 25 Mg Tablet PO BEDTIME PRN Anxiety Levothyroxine Sodium 100 mcg 05/31/21 06:30 06/05/21 06:07 Levothyroxine Sodium 100 Mcg Tablet PO 100 mcg DAILY@0630 AFSHIN Administration Lidocaine 1 patch 05/31/21 09:00 06/05/21 09:30 Lidocaine 4 % Patch Adh..Patch TRANSDERMA 1 patch DAILY AFSHIN Administration Magnesium Hydroxide 30 ml 05/30/21 18:17 Milk Of Magnesia 30 Ml Oral.Susp PO DAILY PRN Constipation Ondansetron HCl 4 mg 05/30/21 18:17 Ondansetron Hcl 4 Mg/2 Ml Vial IVPUSH Q8H PRN Nausea and Vomiting Pharmacy Consult 1 each 05/30/21 18:17 Consult Rx Perform Med Rec MISCELLANE ONCE PRN Consult order Pravastatin Sodium 80 mg 05/30/21 21:00 06/04/21 20:24 Pravastatin Sodium 80 Mg Tablet PO 80 mg BEDTIME AFSHIN Administration Sodium Bicarbonate 650 mg 05/30/21 21:00 06/05/21 09:05 Sodium Bicarbonate 650 Mg Tablet PO 650 mg BID AFSHIN Administration Tizanidine HCl 2 mg 05/30/21 18:17 06/05/21 06:11 Tizanidine Hcl 4 Mg Tablet PO 2 mg TID PRN Administration muscle spasm Trazodone HCl 50 mg 05/30/21 18:17 Trazodone Hcl 50 Mg Tablet PO BEDTIME PRN Insomnia Allergies Allergies Allergy/AdvReac Type Severity Reaction Status Date / Time No Known Allergies Allergy Verified 04/14/21 09:44 Assessment & Plan Assessment & Plan (1) Depression: Status: Acute Code(s): F32.9 - Major depressive disorder, single episode, unspecified Assessment and Plan: Elderly female with a past history of dysphoria but highly functional at baseline, ,transferred from medicine due to suicidal ideation verbalized in the context of severe pain Plan 1. Increase Cymbalta up to 60 mg p.o. q.a.m. and 60 mg p.o. q.h.s.. 2. Increase Gabapentin up to 300 mg p.o. b.i.d. to target chronic pain. 3. Gather collateral information. 4. Family meeting over the phone. Greater than 50% of the session was spent on counseling and/or coordination of care Reason for contiued inpatient stay Substantial Risk for: inability to function, rapid decompensation and med/psych decompensation
[2021-06-05] MEDS: Gabapentin 300 MG CAPSULE PO ×2 (15:16→20:10)
[2021-06-05 18:00] VITALS: BP 141/77; PULSE 85; RESP 16; TEMP 36.8; O2SAT 95
[2021-06-05] MEDS: Pravastatin Sodium 80 MG TABLET PO (20:11)
[2021-06-05] MEDS: Acetaminophen 325 MG TABLET 650 MG PO (22:28)
[2021-06-06] MEDS: Levothyroxine Sodium 100 MCG TABLET PO (05:21)
[2021-06-06] MEDS: TiZANidine HCL 4 MG TABLET 2 MG PO ×3 (05:34→17:18)
[2021-06-06 08:40] VITALS: BP 171/79; PULSE 86; RESP 16; TEMP 36.8; O2SAT 99
[2021-06-06 09:53] VITALS: BP 171/79; PULSE 86
[2021-06-06] MEDS: amLODIPine Besylate 2.5 MG TABLET PO (09:53)
[2021-06-06] MEDS: Docusate Sodium 100 MG CAPSULE PO (09:54)
[2021-06-06] MEDS: DULoxetine HCl 60 MG CAPSULE.DR PO ×2 (09:54→21:08)
[2021-06-06] MEDS: Gabapentin 300 MG CAPSULE PO ×3 (09:54→21:08)
[2021-06-06] MEDS: Sodium Bicarbonate 650 MG TABLET PO ×2 (09:55→21:07)
[2021-06-06] MEDS: Acetaminophen 325 MG TABLET 650 MG PO ×2 (09:55→21:10)
[2021-06-06] MEDS: Lidocaine 4 % Patch ADH..PATCH 1 PATCH TRANSDERMA (09:57)
--- NOTE | 2021-06-06 11:02 | HO.PSYCHPN ---
Subjective Subjective Date of Service: 06/06/21 Reason For Visit: Depression, suicidal ideation Subjective Notes: Conditional Voluntary Interim History: Nursing staff reported that the patient stays most of the time in her room. Last night, she complained of pain and she got the muscle relaxant with some improvement. Today, we have a family meeting over the phone, they have noticed that her pain is the same. The patient lives alone and she doesn't want to go to SNF. The patient is open to have services at her home. Review of Systems Acute medical concerns: No Medical Review of Systems: unchanged Mental Status Exam Mental Status Exam Patient Appearance: Well Grooomed Patient Orientation: Person Level of Consciousness: Awake Patient Behavior: Cooperative Mood Description: Depressed Affect Description: Constricted Patient Cognition Impaired: No Ability to Follow Directions: Good Speech Pattern: Clear Hallucinations: None Delusions: Not Present Thought Process: Linear and Evasive Thought Content: positive for Circumstantial Judgement: Fair Diagnostics Vital Signs (24Hr): Vital Signs - 24 hr 06/05/21 18:00 06/06/21 08:40 06/06/21 09:53 Temperature 98.3 F 98.2 F Pulse Rate 85 86 86 Respiratory Rate 16 16 Blood Pressure 141/77 H 171/79 H 171/79 H Pulse Oximetry 95 99 Medications Medications Current Medications Generic Name Dose Route Start Last Admin Trade Name Isabel PRN Reason Stop Dose Admin Acetaminophen 650 mg 05/30/21 18:17 06/06/21 09:55 Acetaminophen 325 Mg Tablet PO 650 mg Q6H PRN Administration Pain, Mild (Pain Scale 1-3) Al Hydroxide/Mg Hydroxide 30 ml 05/30/21 18:17 06/03/21 13:34 Magnesium Hydrox/Alum Hydrox 30 Ml Oral.Susp PO 30 ml Q6H PRN Administration Heartburn/Nausea Amlodipine Besylate 2.5 mg 05/31/21 09:00 06/06/21 09:53 Amlodipine Besylate 2.5 Mg Tablet PO 2.5 mg DAILY AFSHIN Administration Protocol Docusate Sodium 100 mg 05/30/21 18:17 06/06/21 09:54 Docusate Sodium 100 Mg Capsule PO 100 mg DAILY PRN Administration Constipation Duloxetine HCl 60 mg 05/31/21 09:00 06/06/21 09:54 Duloxetine Hcl 60 Mg Capsule.Dr PO 60 mg DAILY AFSHIN Administration Duloxetine HCl 60 mg 06/04/21 21:00 06/05/21 20:10 Duloxetine Hcl 60 Mg Capsule.Dr PO 60 mg BEDTIME AFSHIN Administration Gabapentin 300 mg 06/05/21 15:00 06/06/21 09:54 Gabapentin 300 Mg Capsule PO 300 mg TID AFSHIN Administration Heparin Sodium (Porcine) 5,000 unit 05/30/21 21:00 06/06/21 10:33 Heparin Sodium,Porcine 5,000 Unit/Ml Vial SUBCUT Not Given BID AFSHIN Hydroxyzine HCl 25 mg 05/30/21 18:17 Hydroxyzine Hcl 25 Mg Tablet PO BEDTIME PRN Anxiety Levothyroxine Sodium 100 mcg 05/31/21 06:30 06/06/21 05:21 Levothyroxine Sodium 100 Mcg Tablet PO 100 mcg DAILY@0630 AFSHIN Administration Lidocaine 1 patch 05/31/21 09:00 06/06/21 09:57 Lidocaine 4 % Patch Adh..Patch TRANSDERMA 1 patch DAILY AFSHIN Administration Magnesium Hydroxide 30 ml 05/30/21 18:17 Milk Of Magnesia 30 Ml Oral.Susp PO DAILY PRN Constipation Ondansetron HCl 4 mg 05/30/21 18:17 Ondansetron Hcl 4 Mg/2 Ml Vial IVPUSH Q8H PRN Nausea and Vomiting Pharmacy Consult 1 each 05/30/21 18:17 Consult Rx Perform Med Rec MISCELLANE ONCE PRN Consult order Pravastatin Sodium 80 mg 05/30/21 21:00 06/05/21 20:11 Pravastatin Sodium 80 Mg Tablet PO 80 mg BEDTIME AFSHIN Administration Sodium Bicarbonate 650 mg 05/30/21 21:00 06/06/21 09:55 Sodium Bicarbonate 650 Mg Tablet PO 650 mg BID AFSHIN Administration Tizanidine HCl 2 mg 05/30/21 18:17 06/06/21 09:54 Tizanidine Hcl 4 Mg Tablet PO 2 mg TID PRN Administration muscle spasm Trazodone HCl 50 mg 05/30/21 18:17 Trazodone Hcl 50 Mg Tablet PO BEDTIME PRN Insomnia Allergies Allergies Allergy/AdvReac Type Severity Reaction Status Date / Time No Known Allergies Allergy Verified 04/14/21 09:44 Assessment & Plan Assessment & Plan (1) Depression: Status: Acute Code(s): F32.9 - Major depressive disorder, single episode, unspecified Assessment and Plan: Elderly female with a past history of dysphoria but highly functional at baseline, ,transferred from medicine due to suicidal ideation verbalized in the context of severe pain Plan 1. Keep Cymbalta 60 mg p.o. bid. 2. Keep Gabapentin up to 300 mg p.o. b.i.d. to target chronic pain. 3. Gather collateral information. 4. Family meeting over the phone. Greater than 50% of the session was spent on counseling and/or coordination of care Reason for contiued inpatient stay Substantial Risk for: inability to function, rapid decompensation and med/psych decompensation
[2021-06-06 18:00] VITALS: BP 142/72; PULSE 72; RESP 17; TEMP 37.2; O2SAT 95
[2021-06-06] MEDS: Heparin Sodium,Porcine 5,000 UNIT/ML VIAL 5000 UNIT SUBCUT (21:06)
[2021-06-06] MEDS: Pravastatin Sodium 80 MG TABLET PO (21:07)
[2021-06-07] MEDS: TiZANidine HCL 4 MG TABLET 2 MG PO ×3 (02:15→20:01)
[2021-06-07] MEDS: Acetaminophen 325 MG TABLET 650 MG PO ×2 (05:00→10:56)
[2021-06-07] MEDS: Levothyroxine Sodium 100 MCG TABLET PO (05:01)
[2021-06-07 06:00] VITALS: BP 181/83; PULSE 69; TEMP 36.4; O2SAT 97
--- NOTE | 2021-06-07 06:35 | P.PNPSI_ITS ---
Subjective Subjective Date of Service: 06/09/21 Reason For Visit: Depression, suicidal ideation Interim History: Pt initially irritable, complaining of pain and this affecting mood. She asked why she couldn't go home on Wednesday. Later pt calmer as she talked about her bulgarian roots, things she used to like, how she comes from strong mother and feeling some degree of guilt for complaining/not coping with back pain. She adamantly denies plan or intent to hurt herself. Pt encouraged to go out in unit. Medication Compliance: Yes Side effects from medications: No Attending Groups: Intermittent Mental Status Exam Mental Status Exam Patient Appearance: Well Grooomed Patient Orientation: Person Level of Consciousness: Awake Patient Behavior: Cooperative Mood Description: Depressed Affect Description: Constricted Patient Cognition Impaired: No Ability to Follow Directions: Good Speech Pattern: Clear Diagnostics Vital Signs (24Hr): Vital Signs - 24 hr 06/08/21 08:39 06/08/21 18:00 Temperature 98.2 F Pulse Rate 78 88 Blood Pressure 179/79 H 170/80 H Pulse Oximetry 98 Medications Medications Current Medications Generic Name Dose Route Start Last Admin Trade Name Freq PRN Reason Stop Dose Admin Acetaminophen 650 mg 05/30/21 18:17 06/08/21 19:57 Acetaminophen 325 Mg Tablet PO 650 mg Q6H PRN Administration Pain, Mild (Pain Scale 1-3) Al Hydroxide/Mg Hydroxide 30 ml 05/30/21 18:17 06/03/21 13:34 Magnesium Hydrox/Alum Hydrox 30 Ml Oral.Susp PO 30 ml Q6H PRN Administration Heartburn/Nausea Amlodipine Besylate 2.5 mg 05/31/21 09:00 06/08/21 08:39 Amlodipine Besylate 2.5 Mg Tablet PO 2.5 mg DAILY AFSHIN Administration Protocol Docusate Sodium 100 mg 05/30/21 18:17 06/06/21 09:54 Docusate Sodium 100 Mg Capsule PO 100 mg DAILY PRN Administration Constipation Duloxetine HCl 60 mg 05/31/21 09:00 06/08/21 19:57 Duloxetine Hcl 60 Mg Capsule. PO 60 mg DAILY AFSHIN Administration Duloxetine HCl 60 mg 06/04/21 21:00 06/07/21 20:00 Duloxetine Hcl 60 Mg Capsule. PO 60 mg BEDTIME AFSHIN Administration Gabapentin 300 mg 06/05/21 15:00 06/08/21 19:57 Gabapentin 300 Mg Capsule PO 300 mg TID AFSHIN Administration Heparin Sodium (Porcine) 5,000 unit 05/30/21 21:00 06/08/21 08:46 Heparin Sodium,Porcine 5,000 Unit/Ml Vial SUBCUT Not Given BID AFSHIN Hydroxyzine HCl 25 mg 05/30/21 18:17 Hydroxyzine Hcl 25 Mg Tablet PO BEDTIME PRN Anxiety Levothyroxine Sodium 100 mcg 05/31/21 06:30 06/09/21 06:08 Levothyroxine Sodium 100 Mcg Tablet PO 100 mcg DAILY@0630 AFSHIN Administration Lidocaine 1 patch 05/31/21 09:00 06/08/21 08:46 Lidocaine 4 % Patch Adh..Patch TRANSDERMA Not Given DAILY AFSHIN Magnesium Hydroxide 30 ml 05/30/21 18:17 Milk Of Magnesia 30 Ml Oral.Susp PO DAILY PRN Constipation Ondansetron HCl 4 mg 05/30/21 18:17 Ondansetron Hcl 4 Mg/2 Ml Vial IVPUSH Q8H PRN Nausea and Vomiting Pharmacy Consult 1 each 05/30/21 18:17 Consult Rx Perform Med Rec MISCELLANE ONCE PRN Consult order Pravastatin Sodium 80 mg 05/30/21 21:00 06/08/21 19:58 Pravastatin Sodium 80 Mg Tablet PO 80 mg BEDTIME AFSHIN Administration Sodium Bicarbonate 650 mg 05/30/21 21:00 06/08/21 19:56 Sodium Bicarbonate 650 Mg Tablet PO 650 mg BID AFSHIN Administration Tizanidine HCl 2 mg 05/30/21 18:17 06/08/21 19:58 Tizanidine Hcl 4 Mg Tablet PO 2 mg TID PRN Administration muscle spasm Trazodone HCl 50 mg 05/30/21 18:17 Trazodone Hcl 50 Mg Tablet PO BEDTIME PRN Insomnia Allergies Allergies Allergy/AdvReac Type Severity Reaction Status Date / Time No Known Allergies Allergy Verified 04/14/21 09:44 Assessment & Plan Assessment & Plan (1) Depression: Status: Acute Code(s): F32.9 - Major depressive disorder, single episode, unspecified Assessment and Plan: Elderly female with a past history of dysphoria but highly functional at baseline, ,transferred from medicine due to suicidal ideation verbalized in the context of severe pain Plan 1. Keep Cymbalta 60 mg p.o. bid. 2. Keep Gabapentin up to 300 mg p.o. b.i.d. to target chronic pain. 3. Gather collateral information. 4. Family meeting over the phone. Greater than 50% of the session was spent on counseling and/or coordination of care Reason for contiued inpatient stay Substantial Risk for: stable for discharge
[2021-06-07] MEDS: Sodium Bicarbonate 650 MG TABLET PO ×2 (08:17→20:01)
[2021-06-07 08:18] VITALS: BP 181/83; PULSE 69
[2021-06-07] MEDS: DULoxetine HCl 60 MG CAPSULE.DR PO ×2 (08:18→20:00)
[2021-06-07] MEDS: amLODIPine Besylate 2.5 MG TABLET PO (08:18)
[2021-06-07] MEDS: Gabapentin 300 MG CAPSULE PO ×3 (08:18→20:01)
[2021-06-07] MEDS: Lidocaine 4 % Patch ADH..PATCH 1 PATCH TRANSDERMA (15:38)
[2021-06-07 18:00] VITALS: BP 158/91; PULSE 81; RESP 16; TEMP 36.9; O2SAT 97
[2021-06-07] MEDS: Pravastatin Sodium 80 MG TABLET PO (20:01)
[2021-06-08 06:00] VITALS: BP 179/79; PULSE 78; TEMP 36.3; O2SAT 98
[2021-06-08] MEDS: Levothyroxine Sodium 100 MCG TABLET PO (06:07)
--- NOTE | 2021-06-08 06:38 | HO.PSYCHPN ---
Subjective Subjective Date of Service: 06/09/21 Reason For Visit: Depression, suicidal ideation Interim History: Pt with brighter affect today. She reports she is looking forward to return home tomorrow. She reports fair sleep. She states patch for neck pain somewhat helpful. She denies SI/HI. Medication Compliance: Yes Side effects from medications: No Attending Groups: No Mental Status Exam Mental Status Exam Patient Appearance: Well Grooomed Patient Orientation: Person Level of Consciousness: Awake Patient Behavior: Cooperative Mood Description: Depressed Affect Description: Constricted Patient Cognition Impaired: No Ability to Follow Directions: Good Speech Pattern: Clear Diagnostics Vital Signs (24Hr): Vital Signs - 24 hr 06/08/21 08:39 06/08/21 18:00 Temperature 98.2 F Pulse Rate 78 88 Blood Pressure 179/79 H 170/80 H Pulse Oximetry 98 Medications Medications Current Medications Generic Name Dose Route Start Last Admin Trade Name Freq PRN Reason Stop Dose Admin Acetaminophen 650 mg 05/30/21 18:17 06/08/21 19:57 Acetaminophen 325 Mg Tablet PO 650 mg Q6H PRN Administration Pain, Mild (Pain Scale 1-3) Al Hydroxide/Mg Hydroxide 30 ml 05/30/21 18:17 06/03/21 13:34 Magnesium Hydrox/Alum Hydrox 30 Ml Oral.Susp PO 30 ml Q6H PRN Administration Heartburn/Nausea Amlodipine Besylate 2.5 mg 05/31/21 09:00 06/08/21 08:39 Amlodipine Besylate 2.5 Mg Tablet PO 2.5 mg DAILY AFSHIN Administration Protocol Docusate Sodium 100 mg 05/30/21 18:17 06/06/21 09:54 Docusate Sodium 100 Mg Capsule PO 100 mg DAILY PRN Administration Constipation Duloxetine HCl 60 mg 05/31/21 09:00 06/08/21 19:57 Duloxetine Hcl 60 Mg Capsule. PO 60 mg DAILY AFSHIN Administration Duloxetine HCl 60 mg 06/04/21 21:00 06/07/21 20:00 Duloxetine Hcl 60 Mg Capsule. PO 60 mg BEDTIME AFSHIN Administration Gabapentin 300 mg 06/05/21 15:00 06/08/21 19:57 Gabapentin 300 Mg Capsule PO 300 mg TID AFSHIN Administration Heparin Sodium (Porcine) 5,000 unit 05/30/21 21:00 06/08/21 08:46 Heparin Sodium,Porcine 5,000 Unit/Ml Vial SUBCUT Not Given BID AFSHIN Hydroxyzine HCl 25 mg 05/30/21 18:17 Hydroxyzine Hcl 25 Mg Tablet PO BEDTIME PRN Anxiety Levothyroxine Sodium 100 mcg 05/31/21 06:30 06/09/21 06:08 Levothyroxine Sodium 100 Mcg Tablet PO 100 mcg DAILY@0630 AFSHIN Administration Lidocaine 1 patch 05/31/21 09:00 06/08/21 08:46 Lidocaine 4 % Patch Adh..Patch TRANSDERMA Not Given DAILY AFSHIN Magnesium Hydroxide 30 ml 05/30/21 18:17 Milk Of Magnesia 30 Ml Oral.Susp PO DAILY PRN Constipation Ondansetron HCl 4 mg 05/30/21 18:17 Ondansetron Hcl 4 Mg/2 Ml Vial IVPUSH Q8H PRN Nausea and Vomiting Pharmacy Consult 1 each 05/30/21 18:17 Consult Rx Perform Med Rec MISCELLANE ONCE PRN Consult order Pravastatin Sodium 80 mg 05/30/21 21:00 06/08/21 19:58 Pravastatin Sodium 80 Mg Tablet PO 80 mg BEDTIME AFSHIN Administration Sodium Bicarbonate 650 mg 05/30/21 21:00 06/08/21 19:56 Sodium Bicarbonate 650 Mg Tablet PO 650 mg BID AFSHIN Administration Tizanidine HCl 2 mg 05/30/21 18:17 06/08/21 19:58 Tizanidine Hcl 4 Mg Tablet PO 2 mg TID PRN Administration muscle spasm Trazodone HCl 50 mg 05/30/21 18:17 Trazodone Hcl 50 Mg Tablet PO BEDTIME PRN Insomnia Allergies Allergies Allergy/AdvReac Type Severity Reaction Status Date / Time No Known Allergies Allergy Verified 04/14/21 09:44 Assessment & Plan Assessment & Plan (1) Depression: Status: Acute Code(s): F32.9 - Major depressive disorder, single episode, unspecified Assessment and Plan: Elderly female with a past history of dysphoria but highly functional at baseline, ,transferred from medicine due to suicidal ideation verbalized in the context of severe pain Plan 1. Keep Cymbalta 60 mg p.o. bid. 2. Keep Gabapentin up to 300 mg p.o. b.i.d. to target chronic pain. 3. Gather collateral information. 4. Family meeting over the phone. Greater than 50% of the session was spent on counseling and/or coordination of care Reason for contiued inpatient stay Substantial Risk for: stable for discharge
[2021-06-08] MEDS: Sodium Bicarbonate 650 MG TABLET PO ×2 (08:37→19:56)
[2021-06-08] MEDS: Acetaminophen 325 MG TABLET 650 MG PO ×2 (08:38→19:57)
[2021-06-08 08:39] VITALS: BP 179/79; PULSE 78
[2021-06-08] MEDS: Gabapentin 300 MG CAPSULE PO ×3 (08:39→19:57)
[2021-06-08] MEDS: DULoxetine HCl 60 MG CAPSULE.DR PO ×2 (08:39→19:57)
[2021-06-08] MEDS: amLODIPine Besylate 2.5 MG TABLET PO (08:39)
[2021-06-08] MEDS: TiZANidine HCL 4 MG TABLET 2 MG PO ×2 (08:40→19:58)
[2021-06-08 18:00] VITALS: BP 170/80; PULSE 88; TEMP 36.8; O2SAT 98
[2021-06-08] MEDS: Pravastatin Sodium 80 MG TABLET PO (19:58)
[2021-06-09 06:00] VITALS: BP 170/79; PULSE 83; RESP 18; TEMP 36.7; O2SAT 98
[2021-06-09] MEDS: Levothyroxine Sodium 100 MCG TABLET PO (06:08)
[2021-06-09] MEDS: DULoxetine HCl 60 MG CAPSULE.DR PO ×3 (07:39→19:51)
[2021-06-09] MEDS: Heparin Sodium,Porcine 5,000 UNIT/ML VIAL 5000 UNIT SUBCUT (09:15)
[2021-06-09] MEDS: Lidocaine 4 % Patch ADH..PATCH 1 PATCH TRANSDERMA (09:15)
[2021-06-09] MEDS: TiZANidine HCL 4 MG TABLET 2 MG PO ×2 (09:17→19:53)
[2021-06-09] MEDS: Gabapentin 300 MG CAPSULE PO ×3 (09:17→19:51)
[2021-06-09 09:18] VITALS: BP 170/79; PULSE 83
[2021-06-09] MEDS: amLODIPine Besylate 2.5 MG TABLET PO (09:18)
[2021-06-09] MEDS: Sodium Bicarbonate 650 MG TABLET PO ×2 (09:18→19:52)
--- NOTE | 2021-06-09 11:00 | HO.PSYCHPN ---
Subjective Subjective Date of Service: 06/09/21 Reason For Visit: Depression, suicidal ideation Subjective Notes: Conditional Voluntary Interim History: Nursing staff reported that the patient has been visible in the unit, she complains of chronic pain. Last Wednesday, she was surprised that she was in a psychiatric unit, over the weekend she spoke with [facility] staff that she was pleasant and oriented. During the interview, the patient wanted to go home, she was agreeable to have services at such as VNA and other ancillary services Review of Systems Acute medical concerns: No Medical Review of Systems: unchanged Mental Status Exam Mental Status Exam Patient Appearance: Well Grooomed Patient Orientation: Person Level of Consciousness: Awake Patient Behavior: Cooperative Mood Description: Depressed Affect Description: Constricted Patient Cognition Impaired: No Ability to Follow Directions: Good Speech Pattern: Appropriate Hallucinations: None Delusions: Not Present Thought Process: Distracted Thought Content: positive for Circumstantial Judgement: Fair Diagnostics Vital Signs (24Hr): Vital Signs - 24 hr 06/08/21 18:00 06/09/21 06:00 06/09/21 09:18 Temperature 98.2 F 98.1 F Pulse Rate 88 83 83 Respiratory Rate 18 Blood Pressure 170/80 H 170/79 H 170/79 H Pulse Oximetry 98 98 Medications Medications Current Medications Generic Name Dose Route Start Last Admin Trade Name Freq PRN Reason Stop Dose Admin Acetaminophen 650 mg 05/30/21 18:17 06/08/21 19:57 Acetaminophen 325 Mg Tablet PO 650 mg Q6H PRN Administration Pain, Mild (Pain Scale 1-3) Al Hydroxide/Mg Hydroxide 30 ml 05/30/21 18:17 06/03/21 13:34 Magnesium Hydrox/Alum Hydrox 30 Ml Oral.Susp PO 30 ml Q6H PRN Administration Heartburn/Nausea Amlodipine Besylate 2.5 mg 05/31/21 09:00 06/09/21 09:18 Amlodipine Besylate 2.5 Mg Tablet PO 2.5 mg DAILY AFSHIN Administration Protocol Docusate Sodium 100 mg 05/30/21 18:17 06/06/21 09:54 Docusate Sodium 100 Mg Capsule PO 100 mg DAILY PRN Administration Constipation Duloxetine HCl 60 mg 05/31/21 09:00 06/09/21 09:16 Duloxetine Hcl 60 Mg Capsule.Dr PO 60 mg DAILY AFSHIN Administration Duloxetine HCl 60 mg 06/04/21 21:00 06/09/21 07:39 Duloxetine Hcl 60 Mg Capsule.Dr PO 60 mg BEDTIME AFSHIN Administration Gabapentin 300 mg 06/05/21 15:00 06/09/21 09:17 Gabapentin 300 Mg Capsule PO 300 mg TID AFSHIN Administration Heparin Sodium (Porcine) 5,000 unit 05/30/21 21:00 06/09/21 09:15 Heparin Sodium,Porcine 5,000 Unit/Ml Vial SUBCUT 5,000 unit BID AFSHIN Administration Hydroxyzine HCl 25 mg 05/30/21 18:17 Hydroxyzine Hcl 25 Mg Tablet PO BEDTIME PRN Anxiety Levothyroxine Sodium 100 mcg 05/31/21 06:30 06/09/21 06:08 Levothyroxine Sodium 100 Mcg Tablet PO 100 mcg DAILY@0630 AFSHIN Administration Lidocaine 1 patch 05/31/21 09:00 06/09/21 09:15 Lidocaine 4 % Patch Adh..Patch TRANSDERMA 1 patch DAILY AFSHIN Administration Magnesium Hydroxide 30 ml 05/30/21 18:17 Milk Of Magnesia 30 Ml Oral.Susp PO DAILY PRN Constipation Ondansetron HCl 4 mg 05/30/21 18:17 Ondansetron Hcl 4 Mg/2 Ml Vial IVPUSH Q8H PRN Nausea and Vomiting Pharmacy Consult 1 each 05/30/21 18:17 Consult Rx Perform Med Rec MISCELLANE ONCE PRN Consult order Pravastatin Sodium 80 mg 05/30/21 21:00 06/08/21 19:58 Pravastatin Sodium 80 Mg Tablet PO 80 mg BEDTIME AFSHIN Administration Sodium Bicarbonate 650 mg 05/30/21 21:00 06/09/21 09:18 Sodium Bicarbonate 650 Mg Tablet PO 650 mg BID AFSHIN Administration Tizanidine HCl 2 mg 05/30/21 18:17 06/09/21 09:17 Tizanidine Hcl 4 Mg Tablet PO 2 mg TID PRN Administration muscle spasm Trazodone HCl 50 mg 05/30/21 18:17 Trazodone Hcl 50 Mg Tablet PO BEDTIME PRN Insomnia Allergies Allergies Allergy/AdvReac Type Severity Reaction Status Date / Time No Known Allergies Allergy Verified 04/14/21 09:44 Assessment & Plan Assessment & Plan (1) Depression: Status: Acute Code(s): F32.9 - Major depressive disorder, single episode, unspecified Assessment and Plan: Elderly female with a past history of dysphoria but highly functional at baseline, ,transferred from medicine due to suicidal ideation verbalized in the context of severe pain Plan 1. Keep Cymbalta 60 mg p.o. bid. 2. Increase Gabapentin up to 400 mg p.o. b.i.d. to target chronic pain. 3. Gather collateral information. 4. Family meeting over the phone was done on Wednesday and primary family group is going to be on vacation this week but there are other family members who can help her at her place. Greater than 50% of the session was spent on counseling and/or coordination of care Reason for contiued inpatient stay Substantial Risk for: inability to function, rapid decompensation and med/psych decompensation
[2021-06-09 18:36] VITALS: BP 122/64; PULSE 84; RESP 17; TEMP 36.9; O2SAT 98
[2021-06-09] MEDS: Pravastatin Sodium 80 MG TABLET PO (19:52)
[2021-06-10] MEDS: hydrOXYzine HCL 25 MG TABLET PO (00:37)
[2021-06-10] MEDS: Levothyroxine Sodium 100 MCG TABLET PO (05:50)
[2021-06-10 06:00] VITALS: BP 131/62; PULSE 68; RESP 16; TEMP 36.9; O2SAT 98
[2021-06-10 09:38] VITALS: BP 131/62; PULSE 68
[2021-06-10] MEDS: Gabapentin 300 MG CAPSULE PO ×3 (09:38→20:42)
[2021-06-10] MEDS: Acetaminophen 325 MG TABLET 650 MG PO (09:38)
[2021-06-10] MEDS: amLODIPine Besylate 2.5 MG TABLET PO (09:38)
[2021-06-10] MEDS: TiZANidine HCL 4 MG TABLET 2 MG PO ×2 (09:39→20:42)
[2021-06-10] MEDS: Sodium Bicarbonate 650 MG TABLET PO ×2 (09:40→20:43)
[2021-06-10] MEDS: DULoxetine HCl 60 MG CAPSULE.DR PO ×2 (10:08→20:42)
--- NOTE | 2021-06-10 13:39 | P.PNPSI_ITS ---
Subjective Subjective Date of Service: 06/10/21 Reason For Visit: Depression, suicidal ideation Subjective Notes: Conditional Voluntary Interim History: Nursing staff has reported that the patient is very agile, she attended exercise groups and she was flexible and agile. Today, she reported that she is still on pain and she is going to be discharge tomorrow. She denies dysphoria or side effects. Mental Status Exam Mental Status Exam Patient Appearance: Well Grooomed Patient Orientation: Person, Place, Time and Situation Level of Consciousness: Awake Patient Behavior: Appropriate Mood Description: Constricted Affect Description: Constricted Patient Cognition Impaired: No Speech Pattern: Appropriate Hallucinations: None Thought Process: Intact Thought Content: positive for Circumstantial Judgement: Fair Diagnostics Vital Signs (24Hr): Vital Signs - 24 hr 06/09/21 18:36 06/10/21 06:00 06/10/21 09:38 Temperature 98.5 F 98.4 F Pulse Rate 84 68 68 Respiratory Rate 17 16 Blood Pressure 122/64 131/62 131/62 Pulse Oximetry 98 98 Medications Medications Current Medications Generic Name Dose Route Start Last Admin Trade Name Freq PRN Reason Stop Dose Admin Acetaminophen 650 mg 05/30/21 18:17 06/10/21 09:38 Acetaminophen 325 Mg Tablet PO 650 mg Q6H PRN Administration Pain, Mild (Pain Scale 1-3) Al Hydroxide/Mg Hydroxide 30 ml 05/30/21 18:17 06/03/21 13:34 Magnesium Hydrox/Alum Hydrox 30 Ml Oral.Susp PO 30 ml Q6H PRN Administration Heartburn/Nausea Amlodipine Besylate 2.5 mg 05/31/21 09:00 06/10/21 09:38 Amlodipine Besylate 2.5 Mg Tablet PO 2.5 mg DAILY AFSHIN Administration Protocol Docusate Sodium 100 mg 05/30/21 18:17 06/06/21 09:54 Docusate Sodium 100 Mg Capsule PO 100 mg DAILY PRN Administration Constipation Duloxetine HCl 60 mg 05/31/21 09:00 06/10/21 10:08 Duloxetine Hcl 60 Mg Capsule. PO 60 mg DAILY AFSHIN Administration Duloxetine HCl 60 mg 06/04/21 21:00 06/09/21 19:51 Duloxetine Hcl 60 Mg Capsule. PO 60 mg BEDTIME AFSHIN Administration Gabapentin 300 mg 06/05/21 15:00 06/10/21 09:38 Gabapentin 300 Mg Capsule PO 300 mg TID AFSHIN Administration Heparin Sodium (Porcine) 5,000 unit 05/30/21 21:00 06/10/21 10:16 Heparin Sodium,Porcine 5,000 Unit/Ml Vial SUBCUT Not Given BID AFSHIN Hydroxyzine HCl 25 mg 05/30/21 18:17 06/10/21 00:37 Hydroxyzine Hcl 25 Mg Tablet PO 25 mg BEDTIME PRN Administration Anxiety Levothyroxine Sodium 100 mcg 05/31/21 06:30 06/10/21 05:50 Levothyroxine Sodium 100 Mcg Tablet PO 100 mcg DAILY@0630 AFSHIN Administration Lidocaine 1 patch 05/31/21 09:00 06/10/21 10:16 Lidocaine 4 % Patch Adh..Patch TRANSDERMA Not Given DAILY [facility] Magnesium Hydroxide 30 ml 05/30/21 18:17 Milk Of Magnesia 30 Ml Oral.Susp PO DAILY PRN Constipation Ondansetron HCl 4 mg 05/30/21 18:17 Ondansetron Hcl 4 Mg/2 Ml Vial IVPUSH Q8H PRN Nausea and Vomiting Pharmacy Consult 1 each 05/30/21 18:17 Consult Rx Perform Med Rec MISCELLANE ONCE PRN Consult order Pravastatin Sodium 80 mg 05/30/21 21:00 06/09/21 19:52 Pravastatin Sodium 80 Mg Tablet PO 80 mg BEDTIME AFSHIN Administration Sodium Bicarbonate 650 mg 05/30/21 21:00 06/10/21 09:40 Sodium Bicarbonate 650 Mg Tablet PO 650 mg BID AFSHIN Administration Tizanidine HCl 2 mg 05/30/21 18:17 06/10/21 09:39 Tizanidine Hcl 4 Mg Tablet PO 2 mg TID PRN Administration muscle spasm Trazodone HCl 50 mg 05/30/21 18:17 Trazodone Hcl 50 Mg Tablet PO BEDTIME PRN Insomnia Allergies Allergies Allergy/AdvReac Type Severity Reaction Status Date / Time No Known Allergies Allergy Verified 04/14/21 09:44 Assessment & Plan Assessment & Plan (1) Depression: Status: Acute Code(s): F32.9 - Major depressive disorder, single episode, unspecified Assessment and Plan: Elderly female with a past history of dysphoria but highly functional at baseline, ,transferred from medicine due to suicidal ideation verbalized in the context of severe pain Plan 1. Keep Cymbalta 60 mg p.o. bid. 2. Increase Gabapentin up to 400 mg p.o. b.i.d. to target chronic pain. 3. Gather collateral information. 4. Family meeting over the phone was done on Wednesday and primary family group is going to be on vacation this week but there are other family members who can help her at her place. Greater than 50% of the session was spent on counseling and/or coordination of care Reason for contiued inpatient stay Substantial Risk for: inability to function, rapid decompensation and med/psych decompensation
[2021-06-10 18:00] VITALS: BP 130/66; PULSE 84; TEMP 36.6; O2SAT 96
[2021-06-10] MEDS: Pravastatin Sodium 80 MG TABLET PO (20:42)
[2021-06-11] MEDS: Acetaminophen 325 MG TABLET 650 MG PO (04:19)
[2021-06-11] MEDS: TiZANidine HCL 4 MG TABLET 2 MG PO ×2 (04:24→12:30)
[2021-06-11] MEDS: Levothyroxine Sodium 100 MCG TABLET PO (05:37)
[2021-06-11 09:21] VITALS: BP 145/70; PULSE 82; RESP 18; TEMP 36.3; O2SAT 98
[2021-06-11 09:22] VITALS: BP 145/70; PULSE 82
[2021-06-11] MEDS: Gabapentin 300 MG CAPSULE PO ×2 (09:22→12:31)
[2021-06-11] MEDS: amLODIPine Besylate 2.5 MG TABLET PO (09:22)
[2021-06-11] MEDS: Sodium Bicarbonate 650 MG TABLET PO (09:23)
[2021-06-11] MEDS: DULoxetine HCl 60 MG CAPSULE.DR PO (09:23)
[2021-06-11] MEDS: Lidocaine 4 % Patch ADH..PATCH 1 PATCH TRANSDERMA (09:24)
--- NOTE | 2021-06-11 11:29 | PM.PSYDC ---
DS: Providers Provider Date of Service: 06/11/21 Date of admission: 05/30/21 16:03 Date of discharge: 06/11/21 Primary care physician: Ester Robles MD Attending physician on discharge: Osiel Torres DS: Diagnosis Discharge Diagnosis (1) Depression: Status: Acute DS: Medications Discharge Medications Home Medications: Home Medications Medication Instructions Recorded Confirmed amlodipine 5 mg tablet 1 tab PO DAILY 05/27/21 05/30/21 duloxetine 60 mg capsule,delayed 1 cap PO DAILY 05/27/21 05/30/21 release levothyroxine 100 mcg tablet 1 tab PO DAILY 05/27/21 05/30/21 lorazepam 0.5 mg tablet 1 tab PO TID 05/27/21 05/30/21 pravastatin 80 mg tablet 1 tab PO BEDTIME 05/27/21 05/30/21 tizanidine 2 mg tablet 1 tab PO TID PRN 05/27/21 05/30/21 Previous Rx's Medication Instructions Recorded hydrocodone 5 mg-acetaminophen 325 1 tab PO Q6H PRN #7 tab 05/24/21 mg tablet lidocaine 5 % topical patch 1 patch TOPICAL DAILY #15 ea 05/24/21 (Lidoderm) Mental Status Exam Mental Status Exam Patient Appearance: Well Grooomed Patient Orientation: Person, Place, Time and Situation Level of Consciousness: Awake Patient Behavior: Appropriate Mood Description: Calm Affect Description: Cheerful Patient Cognition Impaired: No Ability to Follow Directions: Good Speech Pattern: Clear Memory Description: Intact Hallucinations: None Delusions: Not Present Thought Process: Intact Thought Content: positive for Intact Judgement: Fair DS: Summary Hospital Course Hospital Course: The patient was initially transferred from [facility] due to depressive symptoms and suicidal ideation. Only intake, the patient reported that she has chronic neck pain since that 80s after a procedure with a chiropractic and she adamantly denied suicidal ideation. She was expressing ?wishing to due to the pain?. We gather collateral information the patient had been dysphoric with several losses in the last month since that loss of her . We review her medication list and we decided to increase progressively Cymbalta 60 mg p.o. once a day up to 120 mg p.o. daily and to add gabapentin that it was slowly titrated up to 300 mg p.o. t.i.d. to target anxiety and chronic pain. The patient was able to participate in groups, she adamantly denies suicidal ideation she was able to contract for safety. The certified social workers in health care has work on aftercare on all other ancillary services such as VNA, home health manager long term care and all other services that she agreed. She is there were no safety concerns discharge planning was discussed Time spent discussing smoking cessation with patient: 3 to 10 minutes Status at Discharge Functional status at discharge: independent ambulation Overall status at discharge: patient is back to baseline Time Spent with Patient Time attestation: Total time spent providing and/or coordinating discharge services: Time spent: Less than 30 minutes Discharge Plan Discharge Patient Disposition: Home, Self-Care Discharge Diagnosis: Major depressive disorder recurrent episode severe Referrals: [facility] [Other] - 1 Week (Your community case manager is Marcia King at ext [phone]. You will have in home services for 3 hours a week for homemaking, laundry, and home delivered meals. ) [facility] [Other] - 1 Week (Kasey is your community case manager and she will follow up with you by phone once you return home.) Dr Michael Davis [Other] - 06/25/21 1:15 pm (Pain management follow up appointment is scheduled for 06/25/21 at 1:15PM.) [facility] [Other] - 1 Week (Fax discharge paperwork [phone]) Ester Robles MD [Primary Care Provider] - 06/16/21 3:15 pm Discharge Medications: New gabapentin 300 mg Capsule 300 mg PO TID 30 Days Qty: 90 RF: 0 duloxetine [Cymbalta] 60 mg capsule,delayed release(DR/EC) 60 mg PO BID Qty: 60 RF: 0 Continued lidocaine [Lidoderm] 5 % adhesive patch,medicated 1 patch topical DAILY Qty: 15 RF: 0 tizanidine 2 mg tablet 1 tab PO TID PRN (Reason: muscle spasm) 30 Days Qty: 90 RF: 0 hydrocodone-acetaminophen 5-325 mg tablet 1 tab PO Q6H PRN (Reason: pain) Qty: 7 RF: 0 amlodipine 5 mg tablet 1 tab PO DAILY 30 Days Qty: 30 RF: 0 levothyroxine 100 mcg tablet 1 tab PO DAILY 30 Days Qty: 30 RF: 0 pravastatin 80 mg tablet 1 tab PO BEDTIME 30 Days Qty: 30 RF: 0 Discontinued lorazepam 0.5 mg tablet 1 tab PO TID RF: 0 duloxetine 60 mg capsule,delayed release(DR/EC) 1 cap PO DAILY RF: 0 Discharge Orders: Discharge Order (Routine); Ordered 05/30/21 Ordered By: Osiel Torres Diet: advance to usual diet Activity on Discharge: As tolerated Stand Alone Forms: Patient Portal Discharge page Care Plan Goals: Care plan goals [place] achieved, no evidence of suicidality. Health Concerns: Continue treatment with PCP, continue treatment of pain management Plan of Treatment: Medication therapy by prescriber. Psychotherapy referred Assessment: The patient is an elderly [place] female with a history of chronic pain and dysphoria, admitted after she disclosed suicidal ideation in the context of chronic neck pain. We increased Cymbalta up to 60 mg p.o. b.i.d. and add gabapentin for chronic pain and anxiety with her improvement. At this moment safe in the community. Ancillary services were already arranged
--- NOTE | 2021-06-11 12:39 | PC.NURSE ---
Patient D/c information reviewed with patient and son. Patient alert and oriented. verbalized understanding of all DC material. Patient eliz medicated with a muscle relaxer for neck pain prior to DC. She left via WC and was escorted to her car with her son.
== END 2021-06-11 12:42 | disposition home or self-care (01) | DRG 885 ==
PROVIDERS: Admitting Provider Psychiatry & Neurology Psychiatry; PCP Internal Medicine; Visit Provider Psychiatry & Neurology Psychiatry
DX: F33.2 Major depressive disorder, recurrent severe without psychotic features (principal); R45.851 Suicidal ideations; Z79.899 Other long term (current) drug therapy; Z79.890 Hormone replacement therapy

== ENCOUNTER → 2021-06-25 09:35 | Outpatient (BNVA) | payer MEDICARE, SELFPAY | PROVIDERS: Visit Provider Anesthesiology | DX: M96.1 Postlaminectomy syndrome, not elsewhere classified (principal); M54.2 Cervicalgia; M47.812 Spondylosis without myelopathy or radiculopathy, cervical region; G89.4 Chronic pain syndrome | CPT/HCPCS: 99212 ==

== ENCOUNTER 2021-08-04 14:01 | Outpatient (REF) | payer MEDICARE, OTHER, SELFPAY ==
[2021-08-04 14:56] LABS: Alanine Aminotransferase 21 U/L (0-31); Albumin Level 4.9 g/dL (3.5-5.0); Alkaline Phosphatase 68 U/L (39-117); Anion Gap 12 (12-20); Aspartate Amino Transferase 24 U/L (5-31); Bilirubin Total 0.4 mg/dL (0.0-1.0); Blood Urea Nitrogen 30 mg/dL (9-16); Calcium 10.2 mg/dL (8.4-10.2); Carbon Dioxide 24 mmol/L (22-29); Chloride 106 mmol/L (96-108); Estimated Glomerular Filt Rate > 60; Glucose Random 114 mg/dL (60-115); Potassium 4.3 mmol/L (3.3-5.1); Sodium 138 mmol/L (135-145); Total Protein 8.3 g/dL (6.5-8.0)
[2021-08-04 15:17] LABS: Thyroid Stimulating Hormone 18.44 uIU/mL (0.32-4.0)
== END 2021-08-04 14:02 | disposition home or self-care (01) ==
LOC: HO.LAB 14:01
PROVIDERS: PCP Internal Medicine; Visit Provider Internal Medicine
DX: E03.8 Other specified hypothyroidism (principal); F43.12 Post-traumatic stress disorder, chronic; M54.2 Cervicalgia; I12.9 Hypertensive chronic kidney disease with stage 1 through stage 4 chronic kidney disease, or unspecified chronic kidney disease; N18.9 Chronic kidney disease, unspecified
CPT/HCPCS: 36415; 80053; 84443

== ENCOUNTER 2021-08-05 17:01 | Emergency (ER) | payer MEDICARE, MEDICAID, OTHER, SELFPAY ==
--- NOTE | ~2021-08-05 | CT_ITS ---
EXAMINATION: HEAD CT WITHOUT CONTRAST CERVICAL SPINE CT WITHOUT CONTRAST CLINICAL INFORMATION: fall, ?LOC., AMS, neck tenderness COMPARISON: 05/27/2021 TECHNIQUE: Contiguous axial imaging of the head was performed without the administration of IV contrast. Axial multidetector volumetric images were also performed through the cervical spine without intravenous contrast. Multiplanar reconstructed images in coronal and sagittal orientations were submitted. This CT examination was performed using dose optimization techniques as appropriate, variously including the following: *Automated exposure control *Adjustment of mA and/or kV according to patient size (this includes techniques or standardized protocols for targeted exams where dose is matched to indication/reason for exam; i.e. extremities or head) *Use of iterative reconstruction technique DOSE: 1778 mGy-cm FINDINGS: HEAD: There is no evidence of acute intracranial hemorrhage or territorial infarction. No abnormal mass-effect or midline shift. No extra-axial fluid collections. to white matter differentiation is well preserved. Mild enlargement of the ventricles, sulci, and extra-axial CSF spaces is indicative of parenchymal volume loss. A few foci of hypoattenuation in the subcortical and periventricular white matter are most consistent with chronic microangiopathic changes. Small chronic lacunar infarcts are again noted in the basal ganglia, unchanged. Calcific atherosclerosis is present within the cavernous and supraclinoid segments of the internal carotid arteries. Globes are aphakic. No acute fractures are identified. Hyperostosis from talus interna. The sinuses and mastoid air cells are clear. CERVICAL SPINE: Post surgical changes of prior C4 C7 fusion are apparent with cerclage wires at the posterior elements. There is solid osseous bridging across the vertebral bodies and posterior elements at this level. There is resultant kyphosis in the cervical spine with anterolisthesis of C3 on C4 by 8 mm, likely related to the facet arthropathy at this level. No acute fractures are identified. Vertebral body heights are normal. No fractures of the vertebral bodies or posterior elements. Degenerative changes are present at the craniocervical and atlantoaxial articulations, though normal alignment is maintained. There is moderate to severe degenerative disc disease at C2-C3 and C4-C5 and at T1-T2 and T2-T3. Facet arthropathy is most notable at C2-C3 and C3-C4, left side greater than right. No appreciable central canal stenosis. Multilevel neural foraminal encroachment is apparent at C2-C3 and C3-C4 as well as T1-T2 and T2-T3. No significant paravertebral soft tissue swelling. Atherosclerotic calcifications are present in the carotid arteries. Imaged portions of the lung apices are clear. CT/CT cervical spine wo con IMPRESSION: 1. No acute intracranial pathology. Mild cerebral atrophy and chronic white matter microangiopathy. 2. No acute fracture or acute malalignment in the cervical spine. Solid osseous fusion from C4 through C7. Multilevel degenerative spondylosis.
--- NOTE | ~2021-08-05 | XR_ITS ---
EXAMINATION: XR CHEST CLINICAL INFORMATION: Line placement COMPARISON: Chest x-ray May 27, 2021 TECHNIQUE: Frontal view of the chest was obtained. FINDINGS: Cardiac silhouette is normal in size. Right-sided subclavian catheter is present with tip terminating within the mid SVC. XR/XR chest 1V IMPRESSION: No pneumothorax status post catheter placement.
--- NOTE | ~2021-08-05 | CT_ITS ---
EXAMINATION: CT ABDOMEN AND PELVIS WITHOUT CONTRAST CLINICAL INFORMATION: Fall with abdominal pain. COMPARISON: CT abdomen pelvis May 27, 2021 TECHNIQUE: Multidetector volumetric imaging was performed from the superior aspect of the liver through the pubic symphysis. Sagittal and coronal reformatted images were obtained on the technologist's workstation. Today's examination is limited secondary to motion artifact. This CT examination was performed using dose optimization techniques as appropriate, variously including the following: *Automated exposure control *Adjustment of mA and/or kV according to patient size (this includes techniques or standardized protocols for targeted exams where dose is matched to indication/reason for exam; i.e. extremities or head) *Use of iterative reconstruction technique DLP: 826 mGy-cm FINDINGS: Visualized lung bases are well aerated. Mild dependent atelectasis is present. The liver demonstrates normal size, contour and attenuation. The gallbladder is normal in appearance. The pancreas is normal in appearance. Punctate calcifications within the spleen likely the sequela of granulomatous disease. The adrenal glands are unremarkable. Symmetrically sized kidneys. No renal calculi or hydronephrosis bilaterally. Tiny hiatal hernia. Normal caliber loops of small and large bowel. Colon appears primarily fluid-filled, nonspecific. Normal caliber abdominal aorta. No retroperitoneal lymphadenopathy. Tiny fat-containing umbilical hernia. The bladder is decompressed and therefore not accurately evaluated. Unremarkable CT appearance of the uterus. No gross free pelvic fluid. No inguinal lymphadenopathy. Mild to moderate diffuse degenerative changes of the spine. 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 CT/CT abdomen pelvis wo con IMPRESSION: -Today's examination is limited secondary to motion artifact. -No CT evidence for acute abnormality within the abdomen or pelvis.
--- NOTE | 2021-08-05 17:11 | ECG_ITS ---
Test Reason : FALL Blood Pressure : / mmHG Vent. Rate : 074 BPM Atrial Rate : 074 BPM P-R Int : 164 ms QRS Dur : 076 ms QT Int : 400 ms P-R-T Axes : 031 053 065 degrees QTc Int : 444 ms Normal sinus rhythm Nonspecific ST and T wave abnormality Abnormal ECG T wave inversion now evident in Lateral leads Referred By: Hay Hernandez Electronically Signed By:TRISTAN PRESLEY MD
--- NOTE | 2021-08-05 17:15 | ED.GENADULT ---
HPI - General Adult General Chief complaint: Fall Stated complaint: found on floor, unknown downtime Time Seen by Provider: 08/05/21 17:11 Source: EMS Mode of arrival: ambulatory Limitations: altered mental status History of Present Illness HPI narrative: 85 yo female pmhx HTN , hypothyroidism, and chronic neck pain brought in by EMS with concerns of AMS and fall. According to EMS, someone called the police department, because they had not heard from Lennie in a few days. When police arrived, they found her on the floor, in her bathroom, covered in feces,confused, not answering many questions. It is unknown how long she was down on the floor for. Unsure if she hit her head. According to EMS, she had her pills nearby, and there were a few empty bottles, it looks like she did not take her pills on Wednesday per EMS. EMS states that on the ride here, when they sat her up, she became hypotensive and there was increased confusion. Patient reports no pain at this time. She keeps making comments stating this is her time to go, she does not want a live, and somebody is trying to kill her. This report was obtained from EMS, unable to communicate with the patient due to altered mentation she is unable to answer basic questions at this time. 2229 : I spoke to the patient's [id number] Marian Heredia and the patient's son, Pablo. Apparently the patient had been on gabapentin for chronic neck and back pain but ran out of this medication 1 month ago. She restarted her gabapentin yesterday. Onset (ago): unknown Treatments prior to arrival: none Related Data Previous Rx's Medication Instructions Recorded lidocaine 5 % topical patch 1 patch TOPICAL DAILY #15 ea 05/24/21 (Lidoderm) amlodipine 5 mg tablet 1 tab PO DAILY 30 Days #30 tab 06/11/21 duloxetine 60 mg capsule,delayed 60 mg PO BID #60 cap 06/11/21 release (Cymbalta) gabapentin 300 mg capsule 300 mg PO TID 30 Days #90 cap 06/11/21 hydrocodone 5 mg-acetaminophen 325 1 tab PO Q6H PRN #7 tab 06/11/21 mg tablet levothyroxine 100 mcg tablet 1 tab PO DAILY 30 Days #30 tab 06/11/21 pravastatin 80 mg tablet 1 tab PO BEDTIME 30 Days #30 tab 06/11/21 tizanidine 2 mg tablet 1 tab PO TID PRN 30 Days #90 tab 06/11/21 Allergies Allergy/AdvReac Type Severity Reaction Status Date / Time No Known Allergies Allergy Verified 04/14/21 09:44 Review of Systems Review of Systems: Yes Unobtainable due to mental status [facility] Past Medical History Attestation statement: The following information was validated with the patient. Source: old records reviewed and nursing notes reviewed Medical History Cervicalgia Chronic neck pain Chronic pain syndrome Hypertension Postlaminectomy syndrome of cervical region Spondylosis of cervical joint without myelopathy Surgical History H/O neck surgery Social History Social History Household Members: Unknown / Unable to assess Housing: House Do you presently have visiting nurse or other home services: No Alcohol intake: never Patient Tobacco Use Status: Never used Tobacco Advance Directives: Yes Advance Directives on File: Yes Advance Directives Date on File: 01/22/21 service: No Current occupational status: retired Sexual orientation: Straight/Heterosexual Physical Exam Vital Signs: Vital Signs: Last Vital Signs Temp 96.6 F L 08/05/21 21:48 Pulse 71 08/05/21 21:48 Resp 16 08/05/21 21:48 BP 122/60 08/05/21 21:48 Pulse Ox 97 08/05/21 21:48 Body Mass Index 27.8 Const: General: cooperative and no acute distress Orientation/consciousness: No oriented to person, No oriented to place and No oriented to time Limitations: no limitations HENMT: Other: Head is atraumatic, normocephalic. Slight tenderness with passive ROM of neck. Head: Yes normal to inspection, Yes normocephalic and Yes atraumatic Ears: external ears normal General nose exam: Normal external nose present Face and sinus: Yes normal facial exam Mouth: Normal oral and palatal mucosa present Throat: Yes posterior oropharynx normal Eyes: General: appearance normal, both eyes and all related structures Pupils: Equal, round and reactive pupils present Neck: Neck: Yes normal visual inspection, Yes no lymphadenopathy, Yes trachea midline and Yes supple Chest: Chest palpation & inspection: normal inspection of the chest and normal palpation of entire chest wall Resp: Effort & Inspection: normal respiratory effort and able to speak in complete sentences Auscultation: clear to auscultation bilaterally Cardio: Rate: regular rate Rhythm: regular rhythm Heart sounds: S1 normal heart sound present, S2 normal heart sound present and no murmurs GI: Inspection: Yes normal to inspection Palpation (GI): Soft to palpation, Tenderness to palpation present (GI) (Generalized tenderness with palpation, patient appears uncomofortable. ) and no guarding Auscultation: normal bowel sounds : General: Yes no CVA tenderness Back/Spine/Pelvis: Back: no CVA tenderness Skin: General skin exam: no rashes or lesions noted Neuro: General: No oriented to person, No oriented to place and No oriented to time Cranial nerves: Yes CN's II-XII intact bilaterally and Yes Equal, round and reactive pupils present Cognition (Neuro): abnormal cognition Motor exam (neuro): strength not 5/5 throughout and Other motor observations present (Unable to assess since, since patient is unable to follow commands) Extrem: General: Yes normal to inspection Psych: Appearance: grossly normal Speech and movement: Normal speech and movement present Affect: normal affect Attitude: cooperative Thought process: Normal thought process present Thought content: Normal thought content present Course Course Course Narrative: [id number] 85-year-old female past medical history of hypertension, on chronic neck pain presents to the emergency department via EMS who state that somebody called the police, with concerns of not hearing from Lennie for a one day. When PD arrived on the scene, they found her on the ground in the bathroom, covered in feces. They state she appeared confused, she was unsure of when she fell, unknown if she hit her head, unable to answer basic questions. Upon physical examination there is no evidence signs of trauma, patient is altered, unable to answer basic questions, she keeps stating that somebody is trying to kill her. Lungs are clear to auscultation, S1 and S2 pay she did without murmurs. Abdomen is soft and tender to palpation in all 4 quadrants, patient unable to verbalize that hurts, however she appears uncomfortable with palpation of the abdomen. Pupils are equal round and reactive to light bilaterally. No pain with palpation of skull, no step-offs, no pain to palpation of extremities. Patient is not following commands, unable to assess strength at this time. Reevaluation(s) Reevaluation #1: Nurse was able to speak to [id number], who states that they last talked to her last night. Patient is hypothermic 92.2? F rectally. A warming blanket will be initiated at this time. A TSH, with reflex T4 has also been ordered. Nurse states patient has no IV access and they have not been able to draw labs. Will attempt to start a line at this time. Time: 17:55 Reevaluation #2: A 16G central lines has been placed to the right subclavian vein. Reevaluation #3: After reviewing patient's labs, which have just come back due to a delay in obtaining IV access, since patient does not have good peripheral access. Leukocytosis is noted, Rocephin will be initiated at this time. Time: 20:16 Additional Reevaluation(s): Laboratory evaluation revealed a low bicarb of 18, elevated BUN and creatinine of 41 and 1.44, glucose was elevated at 135. TSH was elevated at 25.12 with a normal free T4 of 1.03, total T3 is pending. I did discuss the patient's presentation with our covering fiberglass boat parts finisher, Dr. 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 She recommended the followin) check cortisol level and total T3 2) give stress dose bolus cortisone 100 mg IV then 100 mg IV Every 8 hours 3) give levothyroxine 100 mcg IV bolus then levothyroxine 75 mcg IV daily. 4) give T3 5 mcg IV bolus then 2.5 mcg every 8 hours. Our fiberglass boat parts finisher also recommended transferring the patient to a facility that has in patient endocrinology available to help manage this patient. She also recommended limiting the amount of IV fluid that this patient receives since this will make her peripheral edema worse and can also cause cardiac issues. 2144: I did contact the transfer line for [facility] and for [facility], they do not have ICU beds available to accept this patient at this time. I will attempt to transfer the patient to [facility] transfer line. The patient has been accepted to the [facility] in [address] The excepting physician is Dr. Patino. The patient will be transferred by ALS ambulance. he requested the patient be loaded with Keppra 1000 mg IV. He also requested the patient be covered for possible sepsis with antibiotics. Blood cultures have been obtained and the patient did receive ceftriaxone 1 g IV. I ordered vancomycin 1 g IV as well. Procedures Central Line Placement Right SC: Time Out Performed: Yes Patient Placed on Monitor/Pulse Ox: Yes MD Prep: mask, gown and gloves Central Line Prep: Chlorhexidine scrub ( x2 ) Local Anesthetic: lidocaine 1% Amount of anesthesia used (mL): 10 Ultrasound Used for Placement: No Central Line Lumen Inserted: triple Post Procedure: sutured in place ( 4 point) Post Procedure X-Ray: tip of catheter in good position and no pneumothorax seen Patient Tolerated Procedure: well Complications: none Medical Decision Making MDM Narrative Medical decision making narrative: At this time plan is to obtain basic labs, creatinine kinase, COVID, CT of the head and neck, CT of the abdomen, troponin, EKG, continuous cardiac monitoring, lactic acid, blood cultures. She will also be hydrated with 2 L. Will rule out rhabdomyolysis, ACS, ICH. Lab Data Result diagrams: 08/05/21 19:33 08/05/21 19:34 Labs: Lab Results 08/05/21 08/05/21 08/05/21 Range/Units 15:37 19:33 19:33 WBC 22.8 H (4.8-10.8) X10*3/uL RBC 4.11 L (4.20-5.50) X10*6/uL Hgb 14.0 (12.0-16.0) g/dl Hct 40.9 (37-47) % MCV 99.5 H (80-98) fL MCH 34.1 H (27.0-33.0) pg MCHC 34.2 (31.0-35.0) g/dl RDW 13.9 (11.0-16.0) % Plt Count 321 D (160-400) X10*3/uL MPV 9.9 (9.4-12.3) fL Immature Gran % (Auto) 0.7 H (0.0-0.4) % Neut % (Auto) 86.5 H (45-73) % Lymph % (Auto) 5.7 L (20-40) % [place] % (Auto) 6.8 (2-11) % Eos % (Auto) 0.1 (0-4) % Baso % (Auto) 0.2 (0-2) % Lymph # (Auto) 1.3 (1.2-4.9) X10*3/uL [place] # (Auto) 1.6 H (0.1-1.2) X10*3/uL Eos # (Auto) 0.0 (0.0-0.4) X10*3/uL Baso # (Auto) 0.0 (0.0-0.2) X10*3/uL Abs Immat Gran (auto) 0.17 H (0.00-0.03) X10*3/uL Absolute Neuts (auto) 19.7 H (2.0-8.3) X10*3/uL Absolute Nucleated RBC 0.000 (0.0-0.012) X10*3/uL Nucleated RBC % (auto) 0.0 (0.0-0.2) /100WBC Smear Tech's Comments VERIFIED VBG pH (7.32-7.43) VBG pCO2 mmHg VBG pO2 mmHg VBG HCO3 (22-26) mmol/L VBG O2 Saturation % VBG Base Excess mmol/L Sodium (135-145) mmol/L Potassium (3.3-5.1) mmol/L Chloride (96-108) mmol/L Carbon Dioxide (22-29) mmol/L Anion Gap (12-20) BUN (9-16) mg/dL Creatinine (0.5-1.4) mg/dL Estim Creat Clear Calc Estimated GFR Random Glucose (60-115) mg/dL Lactic Acid (0.5-2.0) mmol/L Calcium (8.4-10.2) mg/dL Total Bilirubin (0.0-1.0) mg/dL AST (5-31) U/L ALT (0-31) U/L Alkaline Phosphatase (39-117) U/L Total Creatine Kinase (26-140) U/L Troponin I High Sens 6.5 (<3.5-17.0) ng/L Total Protein (6.5-8.0) g/dL Albumin (3.5-5.0) g/dL Lipase (8-78) U/L TSH (0.32-4.0) uIU/mL Free T4 (0.71-1.85) ng/dL Random Cortisol ug/dL Urine Color Urine Appearance Urine pH (5.0-8.0) Ur Specific [place] (1.005-1.025) Urine Protein (NEG-TRACE) MG/DL Urine Glucose (UA) (NEG) MG/DL Urine Ketones (NEG) MG/DL Urine Blood (NEG) Urine Nitrite (NEG) Ur Leukocyte Esterase (NEG) Urine RBC (0) /HPF Urine WBC (0-4) /HPF Ur Squamous Epith Cells /LPF Amorphous Sediment /LPF Urine Bacteria /LPF Salicylates (15-30) mg/dL Acetaminophen (<30) mcg/mL COVID-19 (RACQUEL) Negative (Negative) COVID-19 Clin Com See Note 08/05/21 08/05/21 08/05/21 Range/Units 19:34 19:34 19:39 WBC (4.8-10.8) X10*3/uL RBC (4.20-5.50) X10*6/uL Hgb (12.0-16.0) g/dl Hct (37-47) % MCV (80-98) fL MCH (27.0-33.0) pg MCHC (31.0-35.0) g/dl RDW (11.0-16.0) % Plt Count (160-400) X10*3/uL MPV (9.4-12.3) fL Immature Gran % (Auto) (0.0-0.4) % Neut % (Auto) (45-73) % Lymph % (Auto) (20-40) % [place] % (Auto) (2-11) % Eos % (Auto) (0-4) % Baso % (Auto) (0-2) % Lymph # (Auto) (1.2-4.9) X10*3/uL [place] # (Auto) (0.1-1.2) X10*3/uL Eos # (Auto) (0.0-0.4) X10*3/uL Baso # (Auto) (0.0-0.2) X10*3/uL Abs Immat Gran (auto) (0.00-0.03) X10*3/uL Absolute Neuts (auto) (2.0-8.3) X10*3/uL Absolute Nucleated RBC (0.0-0.012) X10*3/uL Nucleated RBC % (auto) (0.0-0.2) /100WBC Smear Tech's Comments VBG pH 7.24 L (7.32-7.43) VBG pCO2 45 mmHg VBG pO2 50 mmHg VBG HCO3 19 L (22-26) mmol/L VBG O2 Saturation 71.0 % VBG Base Excess -7.4 mmol/L Sodium 138 (135-145) mmol/L Potassium 4.1 (3.3-5.1) mmol/L Chloride 106 (96-108) mmol/L Carbon Dioxide 18 L (22-29) mmol/L Anion Gap 18 (12-20) BUN 41 H (9-16) mg/dL Creatinine 1.44 H (0.5-1.4) mg/dL Estim Creat Clear Calc 25.8 Estimated GFR 35 Random Glucose 135 H (60-115) mg/dL Lactic Acid 1.1 (0.5-2.0) mmol/L Calcium 10.4 H (8.4-10.2) mg/dL Total Bilirubin 0.7 (0.0-1.0) mg/dL AST 33 H (5-31) U/L ALT 28 (0-31) U/L Alkaline Phosphatase 65 (39-117) U/L Total Creatine Kinase 67 D (26-140) U/L Troponin I High Sens (<3.5-17.0) ng/L Total Protein 7.5 (6.5-8.0) g/dL Albumin 4.6 (3.5-5.0) g/dL Lipase 45 (8-78) U/L TSH 25.12 H (0.32-4.0) uIU/mL Free T4 1.06 (0.71-1.85) ng/dL Random Cortisol ug/dL Urine Color Urine Appearance Urine pH (5.0-8.0) Ur Specific [place] (1.005-1.025) Urine Protein (NEG-TRACE) MG/DL Urine Glucose (UA) (NEG) MG/DL Urine Ketones (NEG) MG/DL Urine Blood (NEG) Urine Nitrite (NEG) Ur Leukocyte Esterase (NEG) Urine RBC (0) /HPF Urine WBC (0-4) /HPF Ur Squamous Epith Cells /LPF Amorphous Sediment /LPF Urine Bacteria /LPF Salicylates < 5.0 L (15-30) mg/dL Acetaminophen < 1 (<30) mcg/mL COVID-19 (RACQUEL) (Negative) COVID-19 Clin Com 08/05/21 08/05/21 Range/Units 20:54 21:18 WBC (4.8-10.8) X10*3/uL RBC (4.20-5.50) X10*6/uL Hgb (12.0-16.0) g/dl Hct (37-47) % MCV (80-98) fL MCH (27.0-33.0) pg MCHC (31.0-35.0) g/dl RDW (11.0-16.0) % Plt Count (160-400) X10*3/uL MPV (9.4-12.3) fL Immature Gran % (Auto) (0.0-0.4) % Neut % (Auto) (45-73) % Lymph % (Auto) (20-40) % [place] % (Auto) (2-11) % Eos % (Auto) (0-4) % Baso % (Auto) (0-2) % Lymph # (Auto) (1.2-4.9) X10*3/uL [place] # (Auto) (0.1-1.2) X10*3/uL Eos # (Auto) (0.0-0.4) X10*3/uL Baso # (Auto) (0.0-0.2) X10*3/uL Abs Immat Gran (auto) (0.00-0.03) X10*3/uL Absolute Neuts (auto) (2.0-8.3) X10*3/uL Absolute Nucleated RBC (0.0-0.012) X10*3/uL Nucleated RBC % (auto) (0.0-0.2) /100WBC Smear Tech's Comments VBG pH (7.32-7.43) VBG pCO2 mmHg VBG pO2 mmHg VBG HCO3 (22-26) mmol/L VBG O2 Saturation % VBG Base Excess mmol/L Sodium (135-145) mmol/L Potassium (3.3-5.1) mmol/L Chloride (96-108) mmol/L Carbon Dioxide (22-29) mmol/L Anion Gap (12-20) BUN (9-16) mg/dL Creatinine (0.5-1.4) mg/dL Estim Creat Clear Calc Estimated GFR Random Glucose (60-115) mg/dL Lactic Acid (0.5-2.0) mmol/L Calcium (8.4-10.2) mg/dL Total Bilirubin (0.0-1.0) mg/dL AST (5-31) U/L ALT (0-31) U/L Alkaline Phosphatase (39-117) U/L Total Creatine Kinase (26-140) U/L Troponin I High Sens (<3.5-17.0) ng/L Total Protein (6.5-8.0) g/dL Albumin (3.5-5.0) g/dL Lipase (8-78) U/L TSH (0.32-4.0) uIU/mL Free T4 (0.71-1.85) ng/dL Random Cortisol 15.7 ug/dL Urine Color DK YELLOW Urine Appearance CLEAR Urine pH 5.5 (5.0-8.0) Ur Specific [place] 1.025 (1.005-1.025) Urine Protein 1+ H (NEG-TRACE) MG/DL Urine Glucose (UA) NEG (NEG) MG/DL Urine Ketones 5 (NEG) MG/DL Urine Blood NEG (NEG) Urine Nitrite NEG (NEG) Ur Leukocyte Esterase NEG (NEG) Urine RBC 0-2 (0) /HPF Urine WBC 0-2 (0-4) /HPF Ur Squamous Epith Cells TRACE /LPF Amorphous Sediment TRACE /LPF Urine Bacteria TRACE /LPF Salicylates (15-30) mg/dL Acetaminophen (<30) mcg/mL COVID-19 (RACQUEL) (Negative) COVID-19 Clin Com Critical Care Time Critical Care Time Total Critical Care Time: 120 Attestation: Critical Care: The patient was critically ill with a high probability of imminent or life threatening deterioration. I spent greater than 30 minutes of discontinuous time evaluating the patient,delivering critical care at the bedside, discussing and evaluating pertinent data with consultants. Critical care time does not include time spent performing separately billable procedures or teaching. Total time spent performing critical care was 120 minutes. 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 Hypothermia Qualifiers: Encounter type: initial encounter Qualified Code(s): T68.XXXA - Hypothermia, initial encounter Patient Disposition: [facility] Transfer Details: ED to ICU bed at [facility] attending is Dr Patino Prescriptions: No Action lidocaine [Lidoderm] 5 % adhesive patch,medicated 1 patch topical DAILY Qty: 15 RF: 0 gabapentin 300 mg Capsule 300 mg PO TID 30 Days Qty: 90 RF: 0 duloxetine [Cymbalta] 60 mg capsule,delayed release(DR/EC) 60 mg PO BID Qty: 60 RF: 0 tizanidine 2 mg tablet 1 tab PO TID PRN (Reason: muscle spasm) 30 Days Qty: 90 RF: 0 hydrocodone-acetaminophen 5-325 mg tablet 1 tab PO Q6H PRN (Reason: pain) Qty: 7 RF: 0 amlodipine 5 mg tablet 1 tab PO DAILY 30 Days Qty: 30 RF: 0 levothyroxine 100 mcg tablet 1 tab PO DAILY 30 Days Qty: 30 RF: 0 pravastatin 80 mg tablet 1 tab PO BEDTIME 30 Days Qty: 30 RF: 0
[2021-08-05 17:25] VITALS: BP 111/72; BP 148/67; PULSE 66; PULSE 69; RESP 16; TEMP 33.4; O2SAT 96; BMI 27.8
--- NOTE | 2021-08-05 17:35 | PC.NURSE ---
PATIENT WAS CHANGE INTO HOSPITAL ATTIRE BY THIS PCT .
--- NOTE | 2021-08-05 17:44 | PC.NURSE ---
Fiona (daughter in law) [phone]
--- NOTE | 2021-08-05 17:47 | PC.NURSE ---
patient was hooked up to bear huger by this pct
--- NOTE | 2021-08-05 17:56 | PC.NURSE ---
pt difficult stick, informed MD of not able to get labs/IV started. MD to possible place EJ/IJ
--- NOTE | 2021-08-05 17:56 | PC.NURSE ---
Pt Rectal temp 92.2 - applied bear hugger at high temp
[2021-08-05 18:19] LABS: COVID-19 Test Negative (Negative)
--- NOTE | 2021-08-05 18:59 | PC.NURSE ---
THIS PCT SET UP AND ASSIST DR RENTERIA WITH PATIENT CENTRAL LINE
--- NOTE | 2021-08-05 19:20 | PC.NURSE ---
spoke with Fiona (Daughter in law again) who believes all this is because pt stopped her Gabapentin cold turkey reports she last saw the pt yesterday and she was fine
--- NOTE | 2021-08-05 19:21 | PC.NURSE ---
medications unable to be administered at this time as IV access not possible, notified and will place a central line
[2021-08-05 19:38] VITALS: BP 111/68; PULSE 72; RESP 18; TEMP 35.2; O2SAT 99
[2021-08-05 19:44] LABS: Basophils Percent Auto 0.2 % (0-2); Eosinophils Percent Auto 0.1 % (0-4); Hematocrit 40.9 % (37-47); Imm Gran Abs Auto 0.17 X10*3/uL (0.00-0.03); Imm Gran Pct Auto 0.7 % (0.0-0.4); Lymphocytes Absolute Auto 1.3 X10*3/uL (1.2-4.9); Lymphocytes Percent Auto 5.7 % (20-40); MANUAL DIFF FLAG SCAN; Mean Corpuscular HGB Conc 34.2 g/dl (31.0-35.0); Mean Corpuscular Hemoglobin 34.1 pg (27.0-33.0); Mean Corpuscular Volume 99.5 fL (80-98); Mean Platelet Volume 9.9 fL (9.4-12.3); Monocytes Absolute Auto 1.6 X10*3/uL (0.1-1.2); Monocytes Percent Auto 6.8 % (2-11); Neutrophils Absolute Auto 19.7 X10*3/uL (2.0-8.3); Neutrophils Percent Auto 86.5 % (45-73); Platelet Count 321 X10*3/uL (160-400); Red Blood Count 4.11 X10*6/uL (4.20-5.50); Red Cell Distribution Width 13.9 % (11.0-16.0); SCAN SMEAR FLAG 1; White Blood Count 22.8 X10*3/uL (4.8-10.8)
[2021-08-05 19:45] LABS: VBG Base Excess -7.4 mmol/L; VBG HCO3 19 mmol/L (22-26); VBG pCO2 45 mmHg; VBG pH 7.24 (7.32-7.43); VBG pO2 50 mmHg
[2021-08-05 19:45] LABS: Venous Blood Gas Refer to POC result
--- NOTE | 2021-08-05 19:45 | PC.NURSE ---
ASSUMED CARE OF PT. PT ALERT WHILE CENTRAL LINE BEING PLACED AND LABS BEING DRAWN AT THIS TIME. PT TOLERATED WELL, PT REMAINS ON BEAR HUGGER, RECTAL TEMP 95.3 AT THIS TIME, AWARE. PT ON MONITOR WITH EASY N/L RESPIRATIONS. PT TO X-RAY DEPT IN NAD.
[2021-08-05 19:57] LABS: Lactic Acid 1.1 mmol/L (0.5-2.0)
[2021-08-05 20:00] VITALS: BP 115/48; PULSE 78; RESP 18; TEMP 35.4; O2SAT 98
--- NOTE | 2021-08-05 20:00 | PC.NURSE ---
PT IS AWAKE, RESPIRATIONS EASY, N/L. LUNGS CLEAR BY AUSCULTATION. NO COUGH/CONGESTION. ABD SOFT, NT AND DENIES ANY ABD ISSUES. +BS. +1 EDEMA TO LE. +PULSES
[2021-08-05 20:03] LABS: Troponin-I High Sensitivity 6.5 ng/L (<3.5-17.0)
--- NOTE | 2021-08-05 20:07 | PC.NURSE ---
placement of central line confirmed by x-ray by
[2021-08-05] MEDS: 0.9 % Sodium Chloride 1,000 ML 999 ML IV ×2 (20:11)
--- NOTE | 2021-08-05 20:11 | PC.NURSE ---
ns up and running with difficulty, site intact.
[2021-08-05 20:13] LABS: Alanine Aminotransferase 28 U/L (0-31); Albumin Level 4.6 g/dL (3.5-5.0); Alkaline Phosphatase 65 U/L (39-117); Anion Gap 18 (12-20); Aspartate Amino Transferase 33 U/L (5-31); Bilirubin Total 0.7 mg/dL (0.0-1.0); Blood Urea Nitrogen 41 mg/dL (9-16); Calcium 10.4 mg/dL (8.4-10.2); Carbon Dioxide 18 mmol/L (22-29); Chloride 106 mmol/L (96-108); Creatinine Clr Calc Pharmacy 25.8; Estimated Glomerular Filt Rate 35; Glucose Random 135 mg/dL (60-115); Lipase 45 U/L (8-78); Potassium 4.1 mmol/L (3.3-5.1); Salicylate < 5.0 mg/dL (15-30); Sodium 138 mmol/L (135-145); Total Protein 7.5 g/dL (6.5-8.0)
[2021-08-05 20:14] LABS: SLIDE REVIEW VERIFIED
[2021-08-05 20:16] LABS: Acetaminophen LAB < 1 mcg/mL (<30)
[2021-08-05 20:31] LABS: TSH reflex Free T4 25.12 uIU/mL (0.32-4.0)
[2021-08-05] MEDS: cefTRIAXone sodium 1 GM in 0.9 % Sodium Chloride 50 ML IV (20:31)
--- NOTE | 2021-08-05 20:33 | PC.NURSE ---
pt medicated as per emar.
--- NOTE | 2021-08-05 20:40 | PC.NURSE ---
temp romero in place as per MD's orders with a rmoero temp of 95.9F, Pt remains on monitor with HR 76,
[2021-08-05 21:04] LABS: Free T4 (Free Thyroxine) 1.06 ng/dL (0.71-1.85)
[2021-08-05 21:09] LABS: Appearance Urine CLEAR; Color Urine DK YELLOW; Glucose Urine UA NEG (NEG); Leukocyte Esterase Urine NEG (NEG); Nitrite Urine NEG (NEG); PH 5.5 (5.0-8.0); Specific Gravity - Urine 1.025 (1.005-1.025); UACC Culture Trigger NO; Urine Blood NEG (NEG); Urine Ketones 5 MG/DL (NEG); Urine Protein 1+ MG/DL (NEG-TRACE)
--- NOTE | 2021-08-05 21:12 | PC.NURSE ---
pt being admitted to ICU. pt awake and speaking some Azerbaijani but difficult to understand.
[2021-08-05 21:27] VITALS: BP 116/55; PULSE 77; RESP 18; TEMP 35.7; O2SAT 98
[2021-08-05 21:28] LABS: RBC Urine 0-2 /HPF (0); WBC Urine 0-2 /HPF (0-4)
[2021-08-05 21:29] LABS: Amorphous Sediment Urine TRACE /LPF; Bacteria Urine TRACE /LPF; Squamous Epithelial Cell Urine TRACE /LPF
[2021-08-05] MEDS: Hydrocortisone Sod Succ/PF 100 MG VIAL IVPUSH (21:39)
[2021-08-05 21:48] VITALS: BP 122/60; PULSE 71; RESP 16; TEMP 35.9; O2SAT 97
--- NOTE | 2021-08-05 21:48 | PC.NURSE ---
pt medicated with Hydrocortisone but awaiting for Synthroid from pharmacy.
[2021-08-05 22:02] LABS: Cortisol Random 15.7 ug/dL
[2021-08-05] MEDS: Levothyroxine Sodium 100 MCG VIAL IVPUSH (22:26)
--- NOTE | 2021-08-05 22:26 | PC.NURSE ---
PT MEDICATED WITH SYNTHROID PER EMAR.
--- NOTE | 2021-08-05 22:33 | PC.NURSE ---
PT MEDICATED WITH SYNTHROID BROUGHT FROM PHARMACY AT THIS TIME. AWARE OF DELAY. PT AWAITING FOR TRANSPORT. PT REMAINS ALERT AND SPEAKING IN CLEAR FULL SENTENCES. PT REQUESTING WATER TO DRINK. FLUIDS REMAINED DISCONTINUED. PT REMAINS ON MONITOR, PT DENIES ANY OTHER COMPLAINTS AT THIS TIME. MILLER DRAINING APPROX. 100 ML OF DARK YELLOW URINE. MILLER TEMP: 97.9, AWARE AND ORDERED THE BEAR HUGGER REMAIN UNTIL PT IS TRANSFERRED TO [facility] ICU.
[2021-08-05] MEDS: levETIRAcetam 1,000 MG TABLET 1000 MG PO (22:47)
[2021-08-05] MEDS: vancomycin HCL 1,000 MG in 0.9 % Sodium Chloride 250 ML 270 MG IV (22:47)
--- NOTE | 2021-08-05 23:02 | PC.NURSE ---
FAMILY IS NOTIFIED BY MD. PT AWAITING FOR TRANSPORT. PT SPEAKING IN FULL CLEAR SENTENCES AND IS CONCERNED WHY IS MY FAMILY NOT COMING TO VISIT EXPLAINING SEVERAL TIMES TO PT ABOUT GETTING [facility]ERRED [facility] ATTEMPTING TO CALL REPORT TO ICU.
--- NOTE | 2021-08-05 23:31 | PC.NURSE ---
pt left with transport to [facility].
--- NOTE | 2021-08-05 23:39 | PC.NURSE ---
REPORT GIVEN TO AMANDO PEACE IN ICU. PT LEFT ED IN NAD. VANCO CONTINUES TO RUN.
[2021-08-08 04:06] LABS: Triiodothyronine T3 Total 86 ng/dL (76-181)
== END 2021-08-05 23:42 | disposition short-term general hospital (02) ==
PROVIDERS: Emergency Provider Emergency Medicine Emergency Medical Services; PCP Internal Medicine
DX: T68.XXXA Hypothermia, initial encounter (principal); E03.5 Myxedema coma; R41.82 Altered mental status, unspecified; D72.829 Elevated white blood cell count, unspecified; I10 Essential (primary) hypertension; G89.4 Chronic pain syndrome; Z20.822 Contact with and (suspected) exposure to COVID-19
CPT/HCPCS: 36415; 36556; 70450; 71045; 72125; 74176; 80053; 80143; 80179; 81001; 81003; 82533; 82550; 82803; 83605; 83690; 84439; 84443; 84480; 84484; 85025; 87040; 87635; 93005; 96361; 96365; 96367; 96375; 99285; 99291; 99292; J0696; J3370

== ENCOUNTER 2021-11-17 11:58 | Outpatient (REF) | payer MEDICARE, OTHER, SELFPAY ==
[2021-11-17 13:58] LABS: Alanine Aminotransferase 11 U/L (0-31); Albumin Level 4.2 g/dL (3.5-5.0); Alkaline Phosphatase 82 U/L (39-117); Anion Gap 16 (12-20); Aspartate Amino Transferase 22 U/L (5-31); Bilirubin Total 0.4 mg/dL (0.0-1.0); Blood Urea Nitrogen 36 mg/dL (9-16); Calcium 9.9 mg/dL (8.4-10.2); Carbon Dioxide 21 mmol/L (22-29); Chloride 104 mmol/L (96-108); Cholesterol 202 mg/dL; Estimated Glomerular Filt Rate > 60; Glucose Random 91 mg/dL (60-115); HDL Cholesterol 89 mg/dL; LDL Cholesterol Calculated 95 mg/dl; Sodium 136 mmol/L (135-145); Total Protein 7.9 g/dL (6.5-8.0); Triglycerides 93 mg/dL
[2021-11-17 14:21] LABS: Thyroid Stimulating Hormone 2.66 uIU/mL (0.32-4.0)
== END 2021-11-17 11:59 | disposition home or self-care (01) ==
LOC: HO.10HDL 11:58
PROVIDERS: Visit Provider Internal Medicine
DX: I12.9 Hypertensive chronic kidney disease with stage 1 through stage 4 chronic kidney disease, or unspecified chronic kidney disease (principal); N18.9 Chronic kidney disease, unspecified; F33.41 Major depressive disorder, recurrent, in partial remission; E78.00 Pure hypercholesterolemia, unspecified; E03.8 Other specified hypothyroidism
CPT/HCPCS: 36415; 80053; 80061; 84443

== ENCOUNTER 2021-12-26 11:25 | Outpatient (REF) | payer MEDICARE, OTHER, SELFPAY ==
[2021-12-26 13:43] LABS: MANUAL DIFF FLAG NO
[2021-12-26 13:51] LABS: Basophils Absolute Auto 0.1 X10*3/uL (0.0-0.2); Basophils Percent Auto 0.5 % (0-2); Eosinophils Absolute Auto 0.3 X10*3/uL (0.0-0.4); Eosinophils Percent Auto 2.9 % (0-4); Hematocrit 37.3 % (37.0-47.0); Hemoglobin 12.2 g/dl (12.0-16.0); Imm Gran Abs Auto 0.03 X10*3/uL (0.00-0.03); Imm Gran Pct Auto 0.3 % (0.0-0.4); Lymphocytes Absolute Auto 2.9 X10*3/uL (1.2-4.9); Lymphocytes Percent Auto 32.1 % (20-40); Mean Corpuscular HGB Conc 32.7 g/dl (31.0-35.0); Mean Corpuscular Hemoglobin 30.8 pg (27.0-33.0); Mean Corpuscular Volume 94.2 fL (80.0-98.0); Mean Platelet Volume 11.5 fL (9.4-12.3); Monocytes Absolute Auto 0.7 X10*3/uL (0.1-1.2); Monocytes Percent Auto 7.4 % (2-11); Neutrophils Absolute Auto 5.2 x10*3/uL (2.0-8.3); Neutrophils Percent Auto 56.8 % (45-73); Platelet Count 286 X10*3/uL (160-400); Red Blood Count 3.96 X10*6/uL (4.20-5.50); Red Cell Distribution Width 13.5 % (11.0-16.0); White Blood Count 9.1 X10*3/uL (4.8-10.8)
[2021-12-26 14:01] LABS: Alanine Aminotransferase 13 U/L (0-31); Albumin Level 4.3 g/dL (3.5-5.0); Alkaline Phosphatase 92 U/L (39-117); Anion Gap 12 (12-20); Aspartate Amino Transferase 18 U/L (5-31); Bilirubin Total 0.7 mg/dL (0.0-1.0); Blood Urea Nitrogen 25 mg/dL (9-16); Calcium 9.9 mg/dL (8.4-10.2); Carbon Dioxide 28 mmol/L (22-29); Chloride 105 mmol/L (96-108); Estimated Glomerular Filt Rate > 60; Glucose Fasting 108 mg/dL (60-99); Potassium 4.4 mmol/L (3.3-5.1); Sodium 141 mmol/L (135-145); Total Protein 7.6 g/dL (6.5-8.0)
[2021-12-26 14:25] LABS: Thyroid Stimulating Hormone 6.22 uIU/mL (0.32-4.0)
== END 2021-12-26 11:26 | disposition home or self-care (01) ==
LOC: HO.10HDL 11:25
PROVIDERS: Visit Provider Internal Medicine
DX: E03.8 Other specified hypothyroidism (principal); I10 Essential (primary) hypertension; M54.2 Cervicalgia; F33.41 Major depressive disorder, recurrent, in partial remission
CPT/HCPCS: 36415; 80053; 84443; 85025

== ENCOUNTER 2022-04-21 11:16 | Outpatient (REF) | payer MEDICARE, OTHER, SELFPAY ==
[2022-04-21 14:59] LABS: Thyroid Stimulating Hormone 4.54 uIU/mL (0.32-4.0)
== END 2022-04-21 11:17 | disposition home or self-care (01) ==
LOC: HO.10HDL 11:16
PROVIDERS: Visit Provider Internal Medicine
DX: Z00.00 Encounter for general adult medical examination without abnormal findings (principal); E03.8 Other specified hypothyroidism; F32.4 Major depressive disorder, single episode, in partial remission; G89.29 Other chronic pain; I10 Essential (primary) hypertension
CPT/HCPCS: 36415; 84443

== ENCOUNTER 2022-06-30 14:38 | Emergency (ER) | payer MEDICARE, OTHER, SELFPAY ==
--- NOTE | ~2022-06-30 | CT_ITS ---
EXAMINATION: CT CERVICAL SPINE WITHOUT CONTRAST CLINICAL INFORMATION: Increased cervical pain after chiropractic adjustment. COMPARISON: 08/05/2021 CT cervical spine. TECHNIQUE: Multiple axial images of the cervical spine were obtained without the administration of intravenous contrast. Coronal and sagittal reformatted images were obtained. This CT examination was performed using dose optimization techniques as appropriate, variously including the following: *Automated exposure control *Adjustment of mA and/or kV according to patient size (this includes techniques or standardized protocols for targeted exams where dose is matched to indication/reason for exam; i.e. extremities or head) *Use of iterative reconstruction technique DLP: 680 mGy-cm FINDINGS: Generalized osteopenia. There is reversal of the normal cervical lordosis. Multilevel fusion from C4 to C7. Mild to moderate degenerative disc disease at C2-C3 and C3-C4. Mild grade 1 anterolisthesis of C3 over C4. Severe degenerative disc disease at T2-T3 and T3-T4. The vertebral bodies are intact. The odontoid process is intact with moderate articular degenerative changes. Bilateral neural foraminal narrowing is seen at C3-C4 as well as at T2-T3 and T3-T3-T4. The spinous processes are intact. The cervical soft tissues are unremarkable. There is no lymphadenopathy. The thyroid gland is unremarkable. CT/CT cervical spine wo IV con IMPRESSION: Multilevel degenerative changes and fusion as detailed above without significant interval change. No overt acute abnormality.
[2022-06-30 15:23] VITALS: BP 135/84; PULSE 80; RESP 16; TEMP 36.1; O2SAT 99; BMI 34.2
--- NOTE | 2022-06-30 21:14 | ED.NECK ---
HPI - Neck Pain/Injury General Chief Complaint: Neck Pain/Injury Stated Complaint: neck pain/back pain Time Seen by Provider: 06/30/22 20:52 Source: patient Mode of arrival: ambulatory Limitations: no limitations History of Present Illness HPI Narrative: 86-year-old female with a history of post-laminectomy syndrome of the cervical region and cervicalgia who presents emergency department for evaluation of 2 days of increased neck pain. Patient states that she has chronic neck pain. She states she went to a chiropractor and had an adjustment and since that time she has had increased pain not relieved with her medications. She states she has a constant, burning, sharp pain in her neck. She points to her lower cervical spine when asked to localize the pain. She states the pain is 10/10. She states she has chronic numbness in her left hand which is unchanged. She denied any weakness. She denied loss of bowel or bladder control. She denied fever, chills, rhinorrhea, sore throat, cough. She has had no nausea or vomiting. She is concerned that the chiropractor may have damaged her neck therefore she came to emergency department for evaluation MD complaint: neck pain Onset (ago): day(s) (Worse x2 days, chronic neck pain) Place: other (After chiropractic appoint/adjustment) Severity: severe Severity scale (1-10): 10 Quality: burning and sharp Duration: constant Relieving factors: none Exacerbating factors: none Associated symptoms: none Treatments prior to arrival: none Related Data Previous Rx's Medication Instructions Recorded lidocaine 5 % topical patch 1 patch topical DAILY #15 ea 05/24/21 (Lidoderm) amlodipine 5 mg tablet 1 tab PO DAILY 30 days #30 tabs 06/11/21 duloxetine 60 mg capsule,delayed 60 mg PO BID #60 caps 06/11/21 release (Cymbalta) gabapentin 300 mg capsule 300 mg PO TID 30 days #90 caps 06/11/21 hydrocodone 5 mg-acetaminophen 325 1 tab PO Q6H PRN pain #7 tabs 06/11/21 mg tablet levothyroxine 100 mcg tablet 1 tab PO DAILY 30 days #30 tabs 06/11/21 pravastatin 80 mg tablet 1 tab PO BEDTIME 30 days #30 tabs 06/11/21 tizanidine 2 mg tablet 1 tab PO TID PRN muscle spasm 30 06/11/21 days #90 tabs Allergies Allergy/AdvReac Type Severity Reaction Status Date / Time No Known Allergies Allergy Verified 04/14/21 09:44 Review of Systems Review of Systems: Yes all other systems are reviewed and are negative [facility] Past Medical History [facility] Narrative: Social history: She denies tobacco use. She occasionally drinks alcohol. She denies drug use. Medical History Cervicalgia Chronic neck pain Chronic pain syndrome Hypertension Postlaminectomy syndrome of cervical region Spondylosis of cervical joint without myelopathy Surgical History H/O neck surgery Social History Social History Household Members: Unknown / Unable to assess Housing: House Do you presently have visiting nurse or other home services: No Alcohol intake: never Patient Tobacco Use Status: Never used Tobacco Advance Directives: Yes Advance Directives on File: Yes Advance Directives Date on File: 01/22/21 service: No Current occupational status: retired Sexual orientation: Straight/Heterosexual Physical Exam Vital Signs: Vital Signs: Last Vital Signs Temp 97 F 06/30/22 15:23 Pulse 80 06/30/22 15:23 Resp 16 06/30/22 15:23 BP 135/84 06/30/22 15:23 Pulse Ox 99 06/30/22 15:23 O2 Del Method 06/30/22 15:23 BMI result Body Mass Index 34.2 Const: General: cooperative and no acute distress Orientation/consciousness: oriented to person and oriented to place Limitations: no limitations HEENT: Head: Yes normal to inspection, Yes normocephalic and Yes atraumatic Ears: external ears normal General nose exam: Normal external nose present Face and sinus: Yes normal facial exam Mouth: Normal oral and palatal mucosa present Throat: Yes posterior oropharynx normal Eyes: General: appearance normal, both eyes and all related structures Pupils: Equal, round and reactive pupils present Neck: Other: Patient has tenderness palpation of her cervical spine, there is no increased warmth, increased erythema Neck: Yes normal visual inspection, Yes no lymphadenopathy, Yes trachea midline and Yes supple Chest: Chest palpation & inspection: normal inspection of the chest and normal palpation of entire chest wall Resp: Effort & Inspection: normal respiratory effort and able to speak in complete sentences Auscultation: clear to auscultation bilaterally Cardio: Rate: regular rate Rhythm: regular rhythm Heart sounds: S1 normal heart sound present, S2 normal heart sound present and no murmurs GI: Inspection: Yes normal to inspection Palpation (GI): Soft to palpation, nontender and no guarding Auscultation: normal bowel sounds : General: Yes no CVA tenderness Back/Spine/Pelvis: Back: no CVA tenderness Skin: General skin exam: no rashes or lesions noted Neuro: General: oriented to person and oriented to place Cranial nerves: Yes CN's II-XII intact bilaterally and Yes Equal, round and reactive pupils present Cognition (Neuro): normal cognition Motor exam (neuro): 5/5 motor strength present throughout Extrem: General: Yes normal to inspection Psych: Appearance: grossly normal Speech and movement: Normal speech and movement present Affect: normal affect Attitude: cooperative Thought process: Normal thought process present Thought content: Normal thought content present Course Course Course Narrative: 86-year-old female who presents emergency department for evaluation of 2 days of worsening neck pain, she has chronic neck pain for many years and has a diagnosis cervicalgia and postlaminectomy syndrome of the cervical region. She states that the pain was triggered by a chiropractic adjustment. The patient's physical examination did reveal tenderness palpation of her cervical spine otherwise her exam was unremarkable. I did order Tylenol 975 mg orally for pain. I will obtain a CT scan of the patient's C-spine to rule out possible fracture. 2303: Radiology reading of the CT spine without contrast is as follows: IMPRESSION: Multilevel degenerative changes and fusion as detailed above without significant interval change. No overt acute abnormality. Dictated By:Mateo Reyes MD The patient has no acute findings on her sees T scan of the C-spine compared to a CT scan from 08/05/2021 which is reassuring suggesting that she did not have any acute injury from her chiropractic manipulation. I did discuss this with the patient however she has convince that the chiropractor did hurt her neck. Patient was advised to continue taking her medication as prescribed by her provider and to follow-up with her doctor. Discharge Plan Discharge Clinical Impression: Acute neck pain, Chronic neck pain Patient Disposition: Home, Self-Care Instructions: Neck Pain (ED) Additional Instructions: The CT scan of your neck revealed no broken bone or acute injury. You do have degenerative changes of your bones and discs of your neck consistent with chronic arthritis. Continue taking medications as prescribed by your providers. Follow-up with your doctor in 2 days. Please return to the emergency department if your symptoms get worse or if you develop any symptoms that are concerning to you. Prescriptions: No Action lidocaine [Lidoderm] 5 % adhesive patch,medicated 1 patch topical DAILY Qty: 15 0RF Rx Instructions: leave on most painful area for up to 12 hrs gabapentin 300 mg Capsule 300 mg PO TID 30 Days Qty: 90 0RF duloxetine [Cymbalta] 60 mg capsule,delayed release(DR/EC) 60 mg PO BID Qty: 60 0RF tizanidine 2 mg tablet 1 tab PO TID PRN (Reason: muscle spasm) 30 Days Qty: 90 0RF hydrocodone-acetaminophen 5-325 mg tablet 1 tab PO Q6H PRN (Reason: pain) Qty: 7 0RF amlodipine 5 mg tablet 1 tab PO DAILY 30 Days Qty: 30 0RF levothyroxine 100 mcg tablet 1 tab PO DAILY 30 Days Qty: 30 0RF pravastatin 80 mg tablet 1 tab PO BEDTIME 30 Days Qty: 30 0RF
[2022-06-30] MEDS: Acetaminophen 325 MG TABLET 975 MG PO (21:48)
== END 2022-06-30 23:35 | disposition home or self-care (01) ==
PROVIDERS: Emergency Provider Emergency Medicine Emergency Medical Services
DX: G89.29 Other chronic pain (principal); M54.2 Cervicalgia; M96.1 Postlaminectomy syndrome, not elsewhere classified; M47.812 Spondylosis without myelopathy or radiculopathy, cervical region
CPT/HCPCS: 72125; 99283; 99284

== ENCOUNTER 2023-01-05 11:56 | Outpatient (REF) | payer MEDICARE, OTHER, SELFPAY ==
[2023-01-05 13:21] LABS: MANUAL DIFF FLAG NO
[2023-01-05 13:24] LABS: Basophils Absolute Auto 0.1 X10*3/uL (0.0-0.2); Basophils Percent Auto 0.7 % (0-2); Eosinophils Absolute Auto 0.2 X10*3/uL (0.0-0.4); Eosinophils Percent Auto 2.5 % (0-4); Hematocrit 39.6 % (37.0-47.0); Hemoglobin 13.1 g/dl (12.0-16.0); Imm Gran Abs Auto 0.03 X10*3/uL (0.00-0.03); Imm Gran Pct Auto 0.4 % (0.0-0.4); Lymphocytes Absolute Auto 2.5 X10*3/uL (1.2-4.9); Lymphocytes Percent Auto 34.2 % (20-40); Mean Corpuscular HGB Conc 33.1 g/dl (31.0-35.0); Mean Corpuscular Hemoglobin 32.3 pg (27.0-33.0); Mean Corpuscular Volume 97.5 fL (80.0-98.0); Mean Platelet Volume 12.1 fL (9.4-12.3); Monocytes Absolute Auto 0.6 X10*3/uL (0.1-1.2); Monocytes Percent Auto 8.7 % (2-11); Neutrophils Absolute Auto 3.9 x10*3/uL (2.0-8.3); Neutrophils Percent Auto 53.5 % (45-73); Platelet Count 267 X10*3/uL (160-400); Red Blood Count 4.06 X10*6/uL (4.20-5.50); Red Cell Distribution Width 13.4 % (11.0-16.0); White Blood Count 7.3 X10*3/uL (4.8-10.8)
[2023-01-05 13:59] LABS: Alanine Aminotransferase 17 U/L (0-31); Albumin Level 4.2 g/dL (3.5-5.0); Alkaline Phosphatase 84 U/L (39-117); Anion Gap 15 (12-20); Aspartate Amino Transferase 19 U/L (5-31); Bilirubin Total 0.5 mg/dL (0.0-1.0); Blood Urea Nitrogen 27 mg/dL (9-16); Calcium 9.4 mg/dL (8.4-10.2); Carbon Dioxide 28 mmol/L (22-29); Chloride 102 mmol/L (96-108); Cholesterol 178 mg/dL; Estimated Glomerular Filt Rate > 60; Glucose Fasting 122 mg/dL (60-99); HDL Cholesterol 70 mg/dL; LDL Cholesterol Calculated 86 mg/dl; Potassium 4.7 mmol/L (3.3-5.1); Sodium 140 mmol/L (135-145); Total Protein 7.2 g/dL (6.5-8.0); Triglycerides 113 mg/dL
[2023-01-05 14:19] LABS: Thyroid Stimulating Hormone 0.28 uIU/mL (0.32-4.0)
== END 2023-01-05 11:57 | disposition home or self-care (01) ==
LOC: HO.10HDL 11:56
PROVIDERS: Visit Provider Internal Medicine
DX: E03.8 Other specified hypothyroidism (principal); G89.29 Other chronic pain; I10 Essential (primary) hypertension
CPT/HCPCS: 36415; 80053; 80061; 84443; 85025

== ENCOUNTER 2023-01-21 12:43 | Emergency (ER) | payer MEDICARE, OTHER, SELFPAY ==
--- NOTE | ~2023-01-21 | XR_ITS ---
EXAMINATION: XR KNEE, RIGHT CLINICAL INFORMATION: Right knee pain. COMPARISON: None available. TECHNIQUE: Four views of the right knee. FINDINGS: [id number] tricompartmental degenerative joint changes are seen most pronounced in the medial femoral-tibial compartment. There is no acute fracture or dislocation. No significant joint effusion is seen. The soft tissues are unremarkable. XR/XR knee RT 4V IMPRESSION: [id number] tricompartmental degenerative joint changes most consistent with osteoarthritis.
--- NOTE | 2023-01-21 13:56 | ED.LOWEXIN ---
HPI - Extremity Injury (Lower) General Chief Complaint: Extremity Injury, Lower <GLORY Claire Last Filed: 01/21/23 13:58> Stated Complaint: r knee pain <GLORY Claire - Last Filed: 01/21/23 13:58> Time Seen by Provider: 01/21/23 15:15 <GLORY Claire - Last Filed: 01/21/23 13:58> History of Present Illness HPI Narrative: patient complains of right knee pain, medial aspect of the right knee worsening over many many months, she associates it with a fall a little less than a year ago, there is no recent injuries she denies fever denies redness denies weakness or numbness denies any back pain or radiating pain, it hurts but she is able to sleep at night and she is able to walk on it <GLORY Navas Last Filed: 01/21/23 16:08> Related Data Home Medications: Previous Rx's Medication Instructions Recorded lidocaine 5 % topical patch 1 patch topical DAILY #15 ea 05/24/21 (Lidoderm) amlodipine 5 mg tablet 1 tab PO DAILY 30 days #30 tabs 06/11/21 duloxetine 60 mg capsule,delayed 60 mg PO BID #60 caps 06/11/21 release (Cymbalta) gabapentin 300 mg capsule 300 mg PO TID 30 days #90 caps 06/11/21 hydrocodone 5 mg-acetaminophen 325 1 tab PO Q6H PRN pain #7 tabs 06/11/21 mg tablet levothyroxine 100 mcg tablet 1 tab PO DAILY 30 days #30 tabs 06/11/21 pravastatin 80 mg tablet 1 tab PO BEDTIME 30 days #30 tabs 06/11/21 tizanidine 2 mg tablet 1 tab PO TID PRN muscle spasm 30 06/11/21 days #90 tabs cane #1 ea 01/21/23 <GLORY Claire - Last Filed: 01/21/23 13:58> Allergies/Adverse Reactions: Allergies Allergy/AdvReac Type Severity Reaction Status Date / Time No Known Allergies Allergy Verified 01/21/23 15:06 <GLORY Claire Last Filed: 01/21/23 13:58> PMFSH Past Medical History Source: nursing notes reviewed <GLORY Navas - Last Filed: 01/21/23 16:08> Medical History: Medical History Cervicalgia Chronic neck pain Chronic pain syndrome Hypertension Postlaminectomy syndrome of cervical region Spondylosis of cervical joint without myelopathy <GLORY Claire - Last Filed: 01/21/23 13:58> Surgical History: Surgical History H/O neck surgery <GLORY Claire - Last Filed: 01/21/23 13:58> Social History Social History: Social History (System 01/21/23 @ 15:06 by Juliana De Los Santos) Household Members: Unknown / Unable to assess Housing: House Do you presently have visiting nurse or other home services: No Alcohol intake: never Patient Tobacco Use Status: Never used Tobacco Advance Directives: No Advance Directives Date on File: 01/22/21 service: No Current occupational status: retired Sexual orientation: Straight/Heterosexual <GLORY Claire - Last Filed: 01/21/23 13:58> Physical Exam Vital Signs: Vital Signs: Last Vital Signs Temp 97.7 F 01/21/23 14:56 Pulse 82 01/21/23 14:56 Resp 16 01/21/23 14:56 BP 157/72 H 01/21/23 14:56 Pulse Ox 96 01/21/23 14:56 O2 Del Method Room Air 01/21/23 14:56 BMI result Body Mass Index 35.5 <GLORY Claire - Last Filed: 01/21/23 13:58> Vital Signs: Last Vital Signs Temp 97.7 F 01/21/23 14:56 Pulse 82 01/21/23 14:56 Resp 16 01/21/23 14:56 BP 157/72 H 01/21/23 14:56 Pulse Ox 96 01/21/23 14:56 O2 Del Method Room Air 01/21/23 14:56 BMI result Body Mass Index 35.5 <GLORY Navas - Last Filed: 01/21/23 16:08> general appearance cheerful comfortable no acute distress Head is normocephalic atraumatic The neck is supple Respiratory no distress Extremities full range of motion x4 The left knee is normal in appearance, there is no redness or warmth no obvious effusion, it extends to 180 and flexes past 90, there is no ligamentous laxity, no rash there is no calf tenderness there is no posterior tenderness Other extremities normal Skin no rashes <GLORY Navas - Last Filed: 01/21/23 16:08> Course Course Course Narrative: RME - 87 yo female, Georgian speaking presenting to the ER for evaluation of right knee pain after a fall 8 months ago. Pain is mostly on the inside of the knee. She has been waiting for it to go away. She does not have an Orthopedic provider. She is ambulatory into triage. Plan: x-ray and referral to orthopedics <GLORY Claire Last Filed: 01/21/23 13:58> RME - 87 yo female, Georgian speaking presenting to the ER for evaluation of right knee pain after a fall 8 months ago. Pain is mostly on the inside of the knee. She has been waiting for it to go away. She does not have an Orthopedic provider. She is ambulatory into triage. Plan: x-ray and referral to orthopedics X-ray showed osteoarthritis, degenerative changes worst in medial compartment where she is experiencing the most pain, there is no sign of any infection or joint infection or cellulitis there is no redness or warmth Patient ambulates with a slight limp but does not use a cane or any other assistive device and is discharged to follow with orthopedics <GLORY Navas - Last Filed: 01/21/23 16:08> Discharge Plan Discharge Clinical Impression: Osteoarthritis of right knee <GLORY Claire Last Filed: 01/21/23 13:58> Patient Disposition: Home, Self-Care <GLORY Claire Last Filed: 01/21/23 13:58> Additional Instructions: x-ray showed arthritis in your right knee joint, worst in the spot that hurts the most No sign of any infection Best plan is follow with the orthopedist for treatment of arthritis in the right knee Return any time any worse condition or any concerns <GLORY Claire Last Filed: 01/21/23 13:58> Prescriptions: New (DME) cane Device See Rx Instructions .Route Qty: 1 0RF Rx Instructions: As directed No Action lidocaine [Lidoderm] 5 % adhesive patch,medicated 1 patch topical DAILY Qty: 15 0RF Rx Instructions: leave on most painful area for up to 12 hrs gabapentin 300 mg Capsule 300 mg PO TID 30 Days Qty: 90 0RF duloxetine [Cymbalta] 60 mg capsule,delayed release(DR/EC) 60 mg PO BID Qty: 60 0RF tizanidine 2 mg tablet 1 tab PO TID PRN (Reason: muscle spasm) 30 Days Qty: 90 0RF hydrocodone-acetaminophen 5-325 mg tablet 1 tab PO Q6H PRN (Reason: pain) Qty: 7 0RF amlodipine 5 mg tablet 1 tab PO DAILY 30 Days Qty: 30 0RF levothyroxine 100 mcg tablet 1 tab PO DAILY 30 Days Qty: 30 0RF pravastatin 80 mg tablet 1 tab PO BEDTIME 30 Days Qty: 30 0RF <GLORY Claire - Last Filed: 01/21/23 13:58>
[2023-01-21 14:00] VITALS: BP 148/89; PULSE 88; RESP 20; TEMP 36.8; O2SAT 98; BMI 35.5
--- OUTSIDE RECORDS SUMMARY | 2023-01-21 14:25 | XMS_ITS | Continuity of Care Document ---
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 Hand Name Role Phone Ester Robles MD Primary Care Physician [phone] Encounter [facility] [place] 07/05/20 - 08/04/[address] [address]- [facility] Attending Physician: Not on Staff, Attending MD Admitting Physician: Not on Staff, Admitting MD Referring Physician: Not on Staff, Referring MD Allergies, Adverse Reactions, Alerts Substance Reaction Severity Status NKA Active Medications acetaminophen 325 mg oral tablet 650 mg, 2, tablet, By Mouth, Every 6 hours, PRN, Refills 0, Maintenance, Pain , Moderate, 07/05/20 10:26:00 EDT Start Date: 07/05/20 Status: Ordered amLODIPine 5 mg oral tablet 5 mg, 1, tablet, By Mouth, Daily, # 30 tablet, Refills 0, Maintenance, 06/24/20 1:36:00 EDT Start Date: 06/24/20 Status: Ordered duloxetine 60 mg oral enteric coated capsule 1 capsule = 60 mg, By Mouth, Daily, # 30 capsule, 0 Refills, Maintenance, 06/24/20 1:37:00 EDT, EC Capsule Start Date: 06/24/20 Status: Ordered levothyroxine 100 mcg (0.1 mg) oral capsule 1 capsule = 100 mcg, By Mouth, Daily, 0 Refills, Maintenance, 06/24/20 1:36:00 EDT Start Date: 06/24/20 Status: Ordered lidocaine 5% topical film 1, Topically, Daily, If not covered by insurance, please give 4% patch, # 7 each, 0 Refills, Maintenance, 07/05/20 10:27:00 EDT, Patch, [facility], 1 Topically Daily,x7 days,Instr:If not covered by insurance, please give 4% patch, 152.4,... Start Date: 07/05/20 Stop Date: 07/12/20 Status: Ordered LORazepam 0.5 mg oral tablet 0.5 tablet = 0.25 mg, By Mouth, Once, 0 Refills, Maintenance, 06/24/20 1:37:00 EDT, Tablet Start Date: 06/24/20 Status: Ordered tiZANidine 2 mg oral tablet 2 mg, 1, tablet, By Mouth, Every 8 hours, PRN, # 90 tablet, Refills 0, Maintenance, as needed for muscle spasm, 06/24/20 1:37:00 EDT Start Date: 06/24/20 Status: Ordered Social History Social History Type Response Smoking Status Never (less than 100 in lifetime) entered on: 06/24/20 Sex
--- OUTSIDE RECORDS SUMMARY | 2023-01-21 14:25 | XMS_ITS | Continuity of Care Document ---
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 Start Date: 07/05/20 Stop Date: 07/12/20 Status: Ordered LORazepam 0.5 mg oral tablet 0.5 tablet = 0.25 mg, By Mouth, Once, 0 Refills, Maintenance, 06/24/20 1:37:00 EDT, Tablet Start Date: 06/24/20 Status: Ordered oxyCODONE 5 mg oral tablet 2.5 mg, 0.5, tablet, By Mouth, Every 6 hours, PRN, for 3 days, # 7 tablet, Refills 0, Tot. Refills 0, Acute 07/08/20 10:28:00 EDT, Pain , Severe, 07/05/20 10:28:00 EDT, Route to Pharmacy Electronically, [facility], Partial fill upon radha... Start Date: 07/05/20 Stop Date: 07/08/20 Status: Ordered tiZANidine 2 mg oral tablet 2 mg, 1, tablet, By Mouth, Every 8 hours, PRN, # 90 tablet, Refills 0, Maintenance, as needed for muscle spasm, 06/24/20 1:37:00 EDT Start Date: 06/24/20 Status: Ordered Vital Signs Most recent to oldest [Reference Range]: 1 2 3 Height 152.4 cm (07/05/20 7:30 AM) 152.4 cm (07/05/20 5:20 AM) 152.4 cm (07/04/20 7:42 PM) Weight 73.1 kg (06/23/20 11:57 PM) Oxygen Saturation [94-100 %] 100 % (07/05/20 7:30 AM) 99 % (07/05/20 5:20 AM) 99 % (07/04/20 7:42 PM) Pulse Rate [55-90 bpm] 97 bpm *H* (07/05/20 7:30 AM) 78 bpm (07/05/20 5:20 AM) 91 bpm *H* (07/04/20 7:42 PM) Body Mass Index [18.5-24.99] 114.22 *>HHI* (06/23/20 11:57 PM) Blood Pressure [90-138/55-84 mm Hg] 114/57mm Hg (07/05/20 9:47 AM) 114/57mm Hg (07/05/20 7:30 AM) 124/57mm Hg (07/05/20 5:20 AM) Respiratory Rate [16-30 br/min] 18 br/min (07/05/20 10:30 AM) 102 br/min *H* (07/05/20 7:30 AM) 18 br/min (07/05/20 5:20 AM) Temperature [96.8-100.4 DegF] 98.1 DegF (07/05/20 7:30 AM) 98.0 DegF (07/05/20 5:20 AM) 98.0 DegF (07/04/20 7:42 PM) Mode of Delivery (Oxygen) Room air (07/05/20 7:30 AM) Room air (07/05/20 5:20 AM) Room air (07/04/20 7:42 PM) Blood pressure sites Arm, right (07/05/20 7:30 AM) Arm, right (07/05/20 5:20 AM) Arm, left (07/04/20 7:42 PM) Temperature Route Oral (07/05/20 7:30 AM) Oral (07/05/20 5:20 AM) Oral (07/04/20 7:42 PM) Dry Weight 73.1 kg (06/23/20 11:57 PM) 73.1 kg (06/23/20 11:52 PM) Weight Obtained Via Bed scale (06/23/20 11:57 PM) Dry Weight Obtained Via Bed scale (06/23/20 11:57 PM) Bed scale (06/23/20 11:52 PM) Social History Social History Type Response Smoking Status Never (less than 100 in lifetime) entered on: 06/24/20 Sex
[2023-01-21 14:56] VITALS: BP 157/72; PULSE 82; RESP 16; TEMP 36.5; O2SAT 96
--- NOTE | 2023-01-21 17:19 | PC.NURSE ---
PT WAS EVALUATED AND DISCHARGED BY PROVIDER
== END 2023-01-21 17:20 | disposition home or self-care (01) ==
PROVIDERS: Emergency Provider Student in an Organized Health Care Education/Training Program; PCP Internal Medicine
DX: M17.11 Unilateral primary osteoarthritis, right knee (principal); M25.561 Pain in right knee
CPT/HCPCS: 73564; 99283

== ENCOUNTER 2023-04-13 16:02 | Outpatient (REF) | payer MEDICARE, OTHER, SELFPAY ==
[2023-04-13 19:24] LABS: Thyroid Stimulating Hormone 3.68 uIU/mL (0.32-4.0)
== END 2023-04-13 16:03 | disposition home or self-care (01) ==
LOC: HO.LAB 16:02
PROVIDERS: PCP Internal Medicine; Visit Provider Internal Medicine
DX: E03.8 Other specified hypothyroidism (principal); F41.9 Anxiety disorder, unspecified; I10 Essential (primary) hypertension
CPT/HCPCS: 36415; 84443

== ENCOUNTER 2023-07-03 18:27 | Emergency (ER) | payer MEDICARE, OTHER, SELFPAY ==
--- NOTE | 2023-07-03 18:30 | ECG_ITS ---
Test Reason : DYZNESS Blood Pressure : / mmHG Vent. Rate : 073 BPM Atrial Rate : 073 BPM P-R Int : 176 ms QRS Dur : 086 ms QT Int : 358 ms P-R-T Axes : 019 033 063 degrees QTc Int : 394 ms Normal sinus rhythm Nonspecific T wave abnormality Abnormal ECG When compared with ECG of 05-AUG-2021 17:42, No significant change was found Referred By: Generic ED Physician Electronically Signed By:ELIDA HERNANDEZ
[2023-07-03 18:54] VITALS: BP 99/40; PULSE 79; RESP 21; TEMP 36.8; O2SAT 98; BMI 36.4
[2023-07-03 19:22] LABS: MANUAL DIFF FLAG NO
[2023-07-03 19:24] LABS: Basophils Percent Auto 0.4 % (0-2); Eosinophils Absolute Auto 0.1 X10*3/uL (0.0-0.4); Eosinophils Percent Auto 1.2 % (0-4); Hematocrit 33.5 % (37.0-47.0); Hemoglobin 11.1 g/dl (12.0-16.0); Imm Gran Abs Auto 0.04 X10*3/uL (0.00-0.03); Imm Gran Pct Auto 0.4 % (0.0-0.4); Lymphocytes Absolute Auto 2.9 X10*3/uL (1.2-4.9); Lymphocytes Percent Auto 28.4 % (20-40); Mean Corpuscular HGB Conc 33.1 g/dl (31.0-35.0); Mean Corpuscular Hemoglobin 31.8 pg (27.0-33.0); Mean Platelet Volume 10.8 fL (9.4-12.3); Monocytes Absolute Auto 0.8 X10*3/uL (0.1-1.2); Monocytes Percent Auto 7.8 % (2-11); Neutrophils Absolute Auto 6.3 x10*3/uL (2.0-8.3); Neutrophils Percent Auto 61.8 % (45-73); Platelet Count 234 X10*3/uL (160-400); Red Blood Count 3.49 X10*6/uL (4.20-5.50); Red Cell Distribution Width 13.2 % (11.0-16.0); White Blood Count 10.2 X10*3/uL (4.8-10.8)
[2023-07-03 19:39] LABS: Alanine Aminotransferase 14 U/L (0-31); Alkaline Phosphatase 69 U/L (39-117); Anion Gap 13 (12-20); Aspartate Amino Transferase 17 U/L (5-31); Bilirubin Direct 0.1 mg/dL (0.0-0.5); Bilirubin Total 0.3 mg/dL (0.0-1.0); Blood Urea Nitrogen 32 mg/dL (9-16); Calcium 9.1 mg/dL (8.4-10.2); Carbon Dioxide 25 mmol/L (22-29); Chloride 106 mmol/L (96-108); Creatinine Clr Calc Pharmacy 29.9; Estimated Glomerular Filt Rate 40; Glucose Random 115 mg/dL (60-115); Lipase 18 U/L (8-78); Potassium 3.9 mmol/L (3.3-5.1); Sodium 140 mmol/L (135-145); Total Protein 6.9 g/dL (6.5-8.0)
--- NOTE | 2023-07-03 21:14 | PC.NURSE ---
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
--- NOTE | 2023-07-03 21:31 | ED.GENADULT ---
HPI - General Adult General Chief complaint: Dizziness Stated complaint: dizzy, neck pain Time Seen by Provider: 07/03/23 21:07 Source: patient and family (Son) Mode of arrival: ambulatory Limitations: no limitations History of Present Illness HPI narrative: Patient is an 87-year-old female with history of cervical spondylosis, cervicalgia, post-laminectomy syndrome of cervical region presenting to the emergency department with intermittent sudden onset dizziness for the past 1-2 months. She describes dizziness as room spinning and not lightheadedness. She reports that at times the dizziness occurs when she is getting out of bed in the morning and with position changes. States she has not seen her PCP for her symptoms, and is not taking any medications for her dizziness. Denies nausea or vomiting. She denies any changes in vision. Denies any chest pain or shortness breath associated with her episodes of dizziness. Denies any changes in her chronic neck pain. Denies headaches. Denies fevers. Denies any abdominal pain, bright red rectal bleeding, or dark, tarry stools. Denies any falls or other trauma. Denies any changes in hearing or tinnitus. Denies dizziness currently. MD complaint: dizziness Onset (ago): month(s) Relieving factors: none Exacerbating factors: movement Associated symptoms: denies other symptoms Treatments prior to arrival: none Related Data Previous Rx's Medication Instructions Recorded lidocaine 5 % topical patch 1 patch topical DAILY #15 ea 05/24/21 (Lidoderm) amlodipine 5 mg tablet 1 tab PO DAILY 30 days #30 tabs 06/11/21 duloxetine 60 mg capsule,delayed 60 mg PO BID #60 caps 06/11/21 release (Cymbalta) gabapentin 300 mg capsule 300 mg PO TID 30 days #90 caps 06/11/21 hydrocodone 5 mg-acetaminophen 325 1 tab PO Q6H PRN pain #7 tabs 06/11/21 mg tablet levothyroxine 100 mcg tablet 1 tab PO DAILY 30 days #30 tabs 06/11/21 pravastatin 80 mg tablet 1 tab PO BEDTIME 30 days #30 tabs 06/11/21 tizanidine 2 mg tablet 1 tab PO TID PRN muscle spasm 30 06/11/21 days #90 tabs cane #1 ea 01/21/23 meclizine 12.5 mg tablet 12.5 mg PO TID PRN dizziness #10 07/03/23 tabs Allergies Allergy/AdvReac Type Severity Reaction Status Date / Time No Known Allergies Allergy Verified 01/21/23 15:06 Review of Systems Review of Systems: As per HPI. Yes all other systems are reviewed and are negative Constitutional: Constitutional: Reports as per HPI [facility] Past Medical History Medical History Cervicalgia Chronic neck pain Chronic pain syndrome Hypertension Postlaminectomy syndrome of cervical region Spondylosis of cervical joint without myelopathy Surgical History H/O neck surgery Social History Social History (System 01/21/23 @ 15:06 by Juliana De Los Santos) Household Members: Unknown / Unable to assess Housing: House Do you presently have visiting nurse or other home services: No Alcohol intake: never Patient Tobacco Use Status: Never used Tobacco Smoked in Last 30 Days: No Use of substances other than those prescribed or required for medical reasons: No Advance Directives: Yes Advance Directives on File: Yes Advance Directives Date on File: 01/22/21 service: No Current occupational status: retired Sexual orientation: Straight/Heterosexual Physical Exam ED Vital Signs: Vital Signs - 24 hr 07/03/23 18:54 07/03/23 21:48 07/03/23 22:29 Temperature 98.2 F 98.1 F Pulse Rate 79 77 72 Respiratory Rate 21 H 20 Blood Pressure 99/40 L 166/77 H 139/75 Pulse Oximetry 98 100 Oxygen Delivery Method Room Air Room Air 07/03/23 22:30 07/03/23 22:30 07/03/23 23:25 Temperature 98.2 F Pulse Rate 74 78 79 Respiratory Rate 16 Blood Pressure 148/74 H 150/74 H 149/56 H Pulse Oximetry 98 Oxygen Delivery Method Room Air BMI result Body Mass Index 36.4 Vital signs have been reviewed and appear to be correct. Blood pressure low initially, elevated on repeat. Heart rate normal. Respiratory rate normal. Temperature normal. Oxygen saturation normal. Const General: cooperative, healthy appearing and no acute distress Orientation/consciousness: oriented to person, oriented to place, oriented to time and patient oriented x3 Limitations: no limitations HENMT Head: Yes normocephalic and Yes atraumatic Ears: external ears normal General nose exam: Normal external nose present Face and sinus: Yes face symmetric Mouth: oropharynx normal and moist mucous membranes Throat: Yes uvula midline Eyes General: appearance normal, both eyes and all related structures Visual Huitron: normal visual huitron by confrontation Alignment and Position: alignment normal Pupils: Equal, round and reactive pupils present and Pupil accommodation reflex normal EOM: EOMs intact bilaterally and No Nystagmus present Neck Neck: Yes normal visual inspection, Yes no meningeal signs and Yes supple Resp Effort & Inspection: normal respiratory effort and able to speak in complete sentences Auscultation: clear to auscultation bilaterally Cardio Rate: regular rate Rhythm: regular rhythm Heart sounds: S1 normal heart sound present and S2 normal heart sound present GI Palpation (GI): Soft to palpation and nontender Auscultation: normoactive bowel sounds General: Yes no CVA tenderness Back/Spine/Pelvis Back: no CVA tenderness Skin General skin exam: elasticity normal and turgor normal Neuro General: oriented to person, oriented to place, oriented to time, patient oriented x3, gait normal, tone normal, moves all extremities, Normal light touch and pain sensation, no meningeal signs, no focal motor deficits, CN's II-XI intact bilaterally and deep tendon reflexes 2+ bilaterally Cranial nerves: Yes Equal, round and reactive pupils present and No Nystagmus present Cognition (Neuro): normal cognition Gait exam (Neuro): Normal gait present Motor exam (neuro): 5/5 motor strength present throughout, Pronator motor function not present, Normal motor muscle tone present throughout and Motor abnormalities not present Sensory Exam: Normal double simultaneous stimulation for sensation Extrem General: Yes full ROM, Yes no pedal edema and Yes no calf tenderness Psych Mental Status: mental status grossly normal Affect: normal affect Thought process: Normal thought process present Medical Decision Making Medical Decision Making MDM Narrative: Patient is an 87-year-old female with history of cervical spondylosis, cervicalgia, post-laminectomy syndrome of cervical region presenting to the emergency department with intermittent dizziness for the past 1-2 months. On exam patient is awake, A+Ox3, VS WNL, afebrile, normal neurological exam without focal deficits, no nystagmus. Given reported symptoms and physical exam findings, initial differential includes BPPV, orthostatic intolerance, arrhythmia, anemia, UTI. Low suspicion for CVA/ICH, carotid artery dissection. Labs notable for slight anemia, patient refusing rectal exam. EKG shows normal sinus rhythm. Patient and son requesting discharge, stating they do not wish to wait for urinalysis to be resulted. Will discharge patient home with prescription for meclizine and contact patient if urinalysis is positive for UTI. Instructed patient to follow-up with primary care provider. Return precautions discussed at bedside with patient and son. Patient's son verbalized understanding of and agreement with plan. Differential Diagnosis Differential Diagnoses: The differential diagnosis associated with the presentation includes As per [facility]. Lab Data [facility] Lab Attestation statement: I reviewed the patient's lab results. As per [facility]. 07/03/23 19:13 07/03/23 19:13 Labs: Lab Results 07/03/23 07/03/23 Range/Units 19:12 19:13 WBC 10.2 (4.8-10.8) X10*3/uL RBC 3.49 L (4.20-5.50) X10*6/uL Hgb 11.1 L (12.0-16.0) g/dl Hct 33.5 L (37.0-47.0) % MCV 96.0 (80.0-98.0) fL MCH 31.8 (27.0-33.0) pg MCHC 33.1 (31.0-35.0) g/dl RDW 13.2 (11.0-16.0) % Plt Count 234 (160-400) X10*3/uL MPV 10.8 (9.4-12.3) fL Immature Gran % (Auto) 0.4 (0.0-0.4) % Neut % (Auto) 61.8 (45-73) % Lymph % (Auto) 28.4 (20-40) % Humphreys % (Auto) 7.8 (2-11) % Eos % (Auto) 1.2 (0-4) % Baso % (Auto) 0.4 (0-2) % Lymph # (Auto) 2.9 (1.2-4.9) X10*3/uL Humphreys # (Auto) 0.8 (0.1-1.2) X10*3/uL Eos # (Auto) 0.1 (0.0-0.4) X10*3/uL Baso # (Auto) 0.0 (0.0-0.2) X10*3/uL Abs Immat Gran (auto) 0.04 H (0.00-0.03) X10*3/uL Absolute Neuts (auto) 6.3 (2.0-8.3) x10*3/uL Absolute Nucleated RBC 0.000 (0.0-0.012) X10*3/uL Nucleated RBC % (auto) 0.0 (0.0-0.2) /100WBC Sodium 140 (135-145) mmol/L Potassium 3.9 (3.3-5.1) mmol/L Chloride 106 (96-108) mmol/L Carbon Dioxide 25 (22-29) mmol/L Anion Gap 13 (12-20) BUN 32 H (9-16) mg/dL Creatinine 1.27 (0.5-1.4) mg/dL Estim Creat Clear Calc 29.9 Estimated GFR 40 Random Glucose 115 (60-115) mg/dL Calcium 9.1 (8.4-10.2) mg/dL Total Bilirubin 0.3 (0.0-1.0) mg/dL Direct Bilirubin 0.1 (0.0-0.5) mg/dL AST 17 (5-31) U/L ALT 14 (0-31) U/L Alkaline Phosphatase 69 (39-117) U/L Troponin I High Sens 10.0 (<3.5-17.0) ng/L Total Protein 6.9 (6.5-8.0) g/dL Albumin 4.0 (3.5-5.0) g/dL Lipase 18 (8-78) U/L Independent Interpretation I performed an independent interpretation of an: EKG Interpretation: Normal sinus rhythm, rate 73 beats per minute, normal AR and QT intervals, no evidence of STEMI Independent Historian Clinical information obtained from an independent historian. History obtained from or confirmed by: Other (Son) External Record Review External record reviewed: Inpatient record, Office record and Outpatient record Prescription Management I considered prescription management with: Other Discharge Plan Discharge Clinical Impression: Dizziness Patient Disposition: Home, Self-Care Instructions: Dizziness (ED) Additional Instructions: You have been evaluated in the emergency department today for dizziness. Your evaluation suggests that your symptoms are most likely due to peripheral vertigo. You have been prescribed meclizine to help relieve your symptoms. Please take your prescription as directed. You requested to be discharged prior to receiving the results of your urinalysis. You will be contacted if your results were positive and you require treatment with antibiotics. Please follow up with your primary care provider as soon as possible regarding her dizziness. Return to the emergency department immediately for worsening or uncontrolled symptoms, worsening headache, chest pain, shortness of breath, persistent vomiting, vision changes, fainting, or for any other concerning symptoms. Prescriptions: New meclizine 12.5 mg tablet 12.5 mg PO TID PRN (Reason: dizziness) Qty: 10 0RF No Action lidocaine [Lidoderm] 5 % adhesive patch,medicated 1 patch topical DAILY Qty: 15 0RF Rx Instructions: leave on most painful area for up to 12 hrs gabapentin 300 mg Capsule 300 mg PO TID 30 Days Qty: 90 0RF duloxetine [Cymbalta] 60 mg capsule,delayed release(DR/EC) 60 mg PO BID Qty: 60 0RF tizanidine 2 mg tablet 1 tab PO TID PRN (Reason: muscle spasm) 30 Days Qty: 90 0RF hydrocodone-acetaminophen 5-325 mg tablet 1 tab PO Q6H PRN (Reason: pain) Qty: 7 0RF amlodipine 5 mg tablet 1 tab PO DAILY 30 Days Qty: 30 0RF levothyroxine 100 mcg tablet 1 tab PO DAILY 30 Days Qty: 30 0RF pravastatin 80 mg tablet 1 tab PO BEDTIME 30 Days Qty: 30 0RF (DME) cane Device See Rx Instructions .Route Qty: 1 0RF Rx Instructions: As directed
[2023-07-03 21:48] VITALS: BP 166/77; PULSE 77; RESP 20; TEMP 36.7; O2SAT 100
[2023-07-03 22:29] VITALS: BP 139/75; PULSE 72
[2023-07-03 22:30] VITALS: BP 148/74; BP 150/74; PULSE 74; PULSE 78
[2023-07-03 23:25] VITALS: BP 149/56; PULSE 79; RESP 16; TEMP 36.8; O2SAT 98
[2023-07-03 23:35] LABS: Appearance Urine Clear; Color Urine Yellow; Glucose Urine UA Negative (Negative); Leukocyte Esterase Urine Moderate (2+) (Negative); Nitrite Urine Negative (Negative); PH 5.5 (5.0-9.0); Specific Gravity - Urine 1.015 (1.005-1.025); UMIC TRIGGER UACC YES; Urine Blood Negative (Negative); Urine Ketones Negative (Negative); Urine Protein Negative (Neg-Trace)
[2023-07-03 23:47] LABS: Bacteria Urine None Seen (None Seen); RBC Urine 0-2 /HPF (0-2); Squamous Epithelial Cell Urine 0-2 /HPF (0-2); UACC Culture Trigger YES
== END 2023-07-04 00:01 | disposition home or self-care (01) ==
PROVIDERS: Registered Nurse Emergency; Emergency Provider Emergency Medicine Emergency Medical Services; PCP Internal Medicine
DX: R42 Dizziness and giddiness (principal); M54.2 Cervicalgia; I10 Essential (primary) hypertension
CPT/HCPCS: 36415; 80048; 80076; 81001; 83690; 84484; 85025; 87086; 93005; 99283; 99285

== ENCOUNTER 2023-11-24 11:01 | Emergency (ER) | payer MEDICARE, OTHER, SELFPAY ==
--- NOTE | ~2023-11-24 | XR_ITS ---
EXAMINATION: XR HIP, RIGHT XR KNEE, RIGHT CLINICAL INFORMATION: Right hip and right knee pain. COMPARISON: Right knee radiographs dated 01/21/2023. TECHNIQUE: AP view the pelvis as well as AP and frog-leg lateral views of the right hip. AP, bilateral oblique, and lateral views of the right knee. FINDINGS: RIGHT HIP: No acute fracture or dislocation. Mild bilateral hip joint space narrowing with small marginal osteophytes. No osseous erosion. No evidence of avascular necrosis. Phleboliths within the pelvis. RIGHT KNEE: No acute fracture or dislocation. Severe medial compartment joint space narrowing with subchondral sclerosis. Tricompartmental marginal osteophytes. No concerning lytic or blastic osseous lesion. No significant joint effusion. No abnormal soft tissue calcification. Findings are similar when compared to the prior examination. XR/XR knee RT 4V IMPRESSION: RIGHT HIP: Mild bilateral hip osteoarthritis. RIGHT KNEE: Tricompartmental osteoarthritis, most severe within the medial compartment. Findings are similar when compared to the prior examination.
--- NOTE | ~2023-11-24 | XR_ITS ---
EXAMINATION: XR HIP, RIGHT XR KNEE, RIGHT CLINICAL INFORMATION: Right hip and right knee pain. COMPARISON: Right knee radiographs dated 01/21/2023. TECHNIQUE: AP view the pelvis as well as AP and frog-leg lateral views of the right hip. AP, bilateral oblique, and lateral views of the right knee. FINDINGS: RIGHT HIP: No acute fracture or dislocation. Mild bilateral hip joint space narrowing with small marginal osteophytes. No osseous erosion. No evidence of avascular necrosis. Phleboliths within the pelvis. RIGHT KNEE: No acute fracture or dislocation. Severe medial compartment joint space narrowing with subchondral sclerosis. Tricompartmental marginal osteophytes. No concerning lytic or blastic osseous lesion. No significant joint effusion. No abnormal soft tissue calcification. Findings are similar when compared to the prior examination. XR/XR hip RT w PEL1V IMPRESSION: RIGHT HIP: Mild bilateral hip osteoarthritis. RIGHT KNEE: Tricompartmental osteoarthritis, most severe within the medial compartment. Findings are similar when compared to the prior examination.
--- NOTE | 2023-11-24 11:21 | ED_ITS ---
HPI - General Adult General Chief complaint: Extremity Injury, Lower Stated complaint: RLE PAIN,NO INJURY/FALL PER EMS Time Seen by Provider: 11/24/23 11:09 Source: patient Mode of arrival: ambulatory Limitations: no limitations History of Present Illness HPI narrative: 87-year-old female history of recurrent UTIs, depression, chronic pain syndrome, presenting to the emergency department via ambulance with complaints of atraumatic right-sided hip and right-sided knee pain for the past 3-4 days. Patient reports she has a history of osteoarthritis however this pain is worse than ever. Worse with ambulation better at rest. Patient reports she has some services at home however she may be interested in learning more about increasing services as she does live by herself. Denies numbness, tingling, fevers, chills, falls, trauma, chest pain, shortness of breath. No history of DVT or PE. Not on blood thinners. Related Data Previous Rx's Medication Instructions Recorded lidocaine 5 % topical patch 1 patch topical DAILY #15 ea 05/24/21 (Lidoderm) amlodipine 5 mg tablet 1 tab PO DAILY 30 days #30 tabs 06/11/21 duloxetine 60 mg capsule,delayed 60 mg PO BID #60 caps 06/11/21 release (Cymbalta) gabapentin 300 mg capsule 300 mg PO TID 30 days #90 caps 06/11/21 hydrocodone 5 mg-acetaminophen 325 1 tab PO Q6H PRN pain #7 tabs 06/11/21 mg tablet levothyroxine 100 mcg tablet 1 tab PO DAILY 30 days #30 tabs 06/11/21 pravastatin 80 mg tablet 1 tab PO BEDTIME 30 days #30 tabs 06/11/21 tizanidine 2 mg tablet 1 tab PO TID PRN muscle spasm 30 06/11/21 days #90 tabs cane #1 ea 01/21/23 meclizine 12.5 mg tablet 12.5 mg PO TID PRN dizziness #10 07/03/23 tabs Allergies Allergy/AdvReac Type Severity Reaction Status Date / Time No Known Allergies Allergy Verified 01/21/23 15:06 Review of Systems 2 Review of Systems: Constitutional : No Weight loss, No Fever, No Chills, No Fatigue, No Malaise ENT/Mouth : No sore throat, No Rhinorrhea Eyes: No Eye Pain, No Swelling, No Redness Cardiovascular : No Chest Pain, No SOB, No Dyspnea on Exertion, No Orthopnea, No Edema, No Palpitations Respiratory : No Cough, No Sputum, No Wheezing Gastrointestinal : No Nausea, No Vomiting, No Diarrhea, No Constipation, No abdominal Pain, No Hematochezia, No Melena Genitourinary : No Dysuria, No Urinary Frequency, No Hematuria, Musculoskeletal : No joint pain, No Myalgias, No Joint Swelling Skin : No Skin Lesions, No rash Neuro : No Weakness, No Numbness, No Dizziness, No Headache Psych : No Anxiety/Panic, No Depression All other systems reviewed and are negative Yes all other systems are reviewed and are negative [facility] Past Medical History Attestation statement: The following information was validated with the patient. Source: old records reviewed and nursing notes reviewed Medical History Cervicalgia Chronic neck pain Chronic pain syndrome Hypertension Postlaminectomy syndrome of cervical region Spondylosis of cervical joint without myelopathy Surgical History H/O neck surgery Social History Social History (System 01/21/23 @ 15:06 by Juliana De Los Santos) Household Members: Unknown / Unable to assess Housing: House Do you presently have visiting nurse or other home services: No Alcohol intake: never Comment: sitter Patient Tobacco Use Status: Never used Tobacco Advance Directives: Yes Advance Directives on File: Yes Advance Directives Date on File: 01/22/21 service: No Current occupational status: retired Sexual orientation: Straight/Heterosexual Physical Exam ED Vital Signs: Vital Signs - 24 hr 11/24/23 11:23 Temperature 98.6 F Pulse Rate 78 Respiratory Rate 16 Blood Pressure 181/65 H Pulse Oximetry 97 Oxygen Delivery Method Room Air BMI result Body Mass Index 37.5 vss Appearance: Alert.? Oriented X3.? No acute distress.? Head: Normocephalic, atraumatic, no step-offs or deformities Eyes: Pupils equal, round and reactive to light.? CVS: Normal heart rate and rhythm.? Pulses normal.? Respiratory: No respiratory distress.? Breath sounds normal.? Abdomen: Soft and nontender.? Skin: Skin warm and dry.? Normal skin color.? Normal skin turgor.? Extremities: No lower extremity edema.? No calf ttp. Global weakness. 2+ dorsalis pedis, anterior tibialis posterior tibialis pulses equal bilateral, 2+ popliteal pulses. Full range of motion to bilateral knees, hips. Back: No midline tenderness, no C-spine tenderness, full range of motion, no CVA tenderness bilaterally Neuro: Oriented X 3.? No motor deficit.? No sensory deficit. CN 2-12 intact Course Reevaluation(s) Reevaluation #1: X-ray of knee with significant osteoarthritis most severe within the medial compartment. Findings similar when compared to previous imaging. Right hip also with mild bilateral hip osteoarthritis. CBC unremarkable. Chemistry pending. Coags unremarkable negative D-dimer. Again unlikely venous occlusion. Plan at this time will place patient in observation for patient to be evaluated by physical therapy and case management. At time observation was started patient common cooperative pain well controlled. Will continue to monitor Time: 12:40 Medications Administered Discontinued Medications Generic Name Dose Route Start Last Admin Trade Name Freq PRN Reason Stop Dose Admin Morphine Sulfate 15 mg 11/24/23 11:26 11/24/23 12:24 Morphine Sulfate Immed Release 15 Mg Tablet PO 11/24/23 11:27 15 mg ONCE ONE Administration Medical Decision Making Medical Decision Making [facility] Narrative: 1125 87-year-old female presents with complaints of acute on chronic right hip and right knee pain for the past 3-4 days. Atraumatic. Physical exam significant for She will go home with [facility] for long-term and physical therapy. This is likely osteoarthritis versus inflammatory arthritis. Unlikely gout or pseudogout. Unlikely septic joint, acute threatened limb, neurovascular compromise venous or arterial occlusion. I do not suspect Guillain-[place] Plan labs, imaging. Differential Diagnosis Differential Diagnoses: The differential diagnosis associated with the presentation includes This is likely osteoarthritis versus inflammatory arthritis. Unlikely gout or pseudogout. Unlikely septic joint, acute threatened limb, neurovascular compromise venous or arterial occlusion. I do not suspect Guillain-[place] Admission/Observation Consideration of admission/observation: Escalation of care including admission/observation considered Unlikely Possible PT/CM Consult Healthcare Provider Management of the patient was discussed with: [employer] T[employer] (PT & CM ) Lab Data [facility] Lab Attestation statement: I reviewed the patient's lab results. 11/24/23 11:49 11/24/23 11:49 Labs: Lab Results 11/24/23 Range/Units 11:49 WBC 8.8 (4.8-10.8) X10*3/uL RBC 4.45 D (4.20-5.50) X10*6/uL Hgb 14.1 D (12.0-16.0) g/dl Hct 40.8 D (37.0-47.0) % MCV 91.7 (80.0-98.0) fL MCH 31.7 (27.0-33.0) pg MCHC 34.6 (31.0-35.0) g/dl RDW 12.9 (11.0-16.0) % Plt Count 310 D (160-400) X10*3/uL MPV 10.7 (9.4-12.3) fL Immature Gran % (Auto) 0.3 (0.0-0.4) % Neut % (Auto) 64.9 (45-73) % Lymph % (Auto) 24.1 (20-40) % Mccreary % (Auto) 7.3 (2-11) % Eos % (Auto) 2.7 (0-4) % Baso % (Auto) 0.7 (0-2) % Lymph # (Auto) 2.1 (1.2-4.9) X10*3/uL Mccreary # (Auto) 0.6 (0.1-1.2) X10*3/uL Eos # (Auto) 0.2 (0.0-0.4) X10*3/uL Baso # (Auto) 0.1 (0.0-0.2) X10*3/uL Abs Immat Gran (auto) 0.03 (0.00-0.03) X10*3/uL Absolute Neuts (auto) 5.7 (2.0-8.3) x10*3/uL Absolute Nucleated RBC 0.000 (0.0-0.012) X10*3/uL Nucleated RBC % (auto) 0.0 (0.0-0.2) /100WBC PT 11.2 (11.1-13.3) SEC INR 0.9 (0.9-1.1) D-Dimer High Sensitivty < 150 NG/ML Independent Interpretation I performed an independent interpretation of an: Plain X-Ray (XR/XR knee RT 4V IMPRESSION: RIGHT HIP: Mild bilateral hip osteoarthritis. RIGHT KNEE: Tricompartmental osteoarthritis, most severe within the medial compartment. Findings are similar when compared to the prior examination. ) Radiology Impression Discussion of test interpretation with radiology: I have reviewed the radiologist's reading. External Record Review External record reviewed: Inpatient record, Office record, Outpatient record, Prior outpatient labs, Prior outpatient radiology, Primary care record and Outside ED record Critical Care Time Critical Care Time Critical Care Time: No Discharge Plan Discharge Clinical Impression: Osteoarthritis of right hip, Osteoarthritis of right knee Patient Disposition: Still a Patient Prescriptions: No Action lidocaine [Lidoderm] 5 % adhesive patch,medicated 1 patch topical DAILY Qty: 15 0RF Rx Instructions: leave on most painful area for up to 12 hrs gabapentin 300 mg Capsule 300 mg PO TID 30 Days Qty: 90 0RF duloxetine [Cymbalta] 60 mg capsule,delayed release(DR/EC) 60 mg PO BID Qty: 60 0RF tizanidine 2 mg tablet 1 tab PO TID PRN (Reason: muscle spasm) 30 Days Qty: 90 0RF hydrocodone-acetaminophen 5-325 mg tablet 1 tab PO Q6H PRN (Reason: pain) Qty: 7 0RF amlodipine 5 mg tablet 1 tab PO DAILY 30 Days Qty: 30 0RF levothyroxine 100 mcg tablet 1 tab PO DAILY 30 Days Qty: 30 0RF pravastatin 80 mg tablet 1 tab PO BEDTIME 30 Days Qty: 30 0RF (DME) cane Device See Rx Instructions .Route Qty: 1 0RF Rx Instructions: As directed meclizine 12.5 mg tablet 12.5 mg PO TID PRN (Reason: dizziness) Qty: 10 0RF
[2023-11-24 11:23] VITALS: BP 162/84; BP 181/65; PULSE 78; PULSE 80; RESP 16; TEMP 37; O2SAT 100; O2SAT 97; BMI 37.5
[2023-11-24 11:59] LABS: MANUAL DIFF FLAG NO
[2023-11-24 12:00] LABS: Basophils Absolute Auto 0.1 X10*3/uL (0.0-0.2); Basophils Percent Auto 0.7 % (0-2); Eosinophils Absolute Auto 0.2 X10*3/uL (0.0-0.4); Eosinophils Percent Auto 2.7 % (0-4); Hematocrit 40.8 % (37.0-47.0); Hemoglobin 14.1 g/dl (12.0-16.0); Imm Gran Abs Auto 0.03 X10*3/uL (0.00-0.03); Imm Gran Pct Auto 0.3 % (0.0-0.4); Lymphocytes Absolute Auto 2.1 X10*3/uL (1.2-4.9); Lymphocytes Percent Auto 24.1 % (20-40); Mean Corpuscular HGB Conc 34.6 g/dl (31.0-35.0); Mean Corpuscular Hemoglobin 31.7 pg (27.0-33.0); Mean Corpuscular Volume 91.7 fL (80.0-98.0); Mean Platelet Volume 10.7 fL (9.4-12.3); Monocytes Absolute Auto 0.6 X10*3/uL (0.1-1.2); Monocytes Percent Auto 7.3 % (2-11); Neutrophils Absolute Auto 5.7 x10*3/uL (2.0-8.3); Neutrophils Percent Auto 64.9 % (45-73); Platelet Count 310 X10*3/uL (160-400); Red Blood Count 4.45 X10*6/uL (4.20-5.50); Red Cell Distribution Width 12.9 % (11.0-16.0); White Blood Count 8.8 X10*3/uL (4.8-10.8)
[2023-11-24 12:09] LABS: INTERNATIONAL NORM RATIO 0.9 (0.9-1.1); Prothrombin Time 11.2 SEC (11.1-13.3)
[2023-11-24 12:12] LABS: D Dimer High Sensitivity < 150 NG/ML
[2023-11-24] MEDS: Morphine Sulfate Immed Release 15 MG TABLET PO (12:24)
[2023-11-24 12:49] LABS: Alanine Aminotransferase 17 U/L (0-31); Albumin Level 4.3 g/dL (3.5-5.0); Alkaline Phosphatase 76 U/L (39-117); Anion Gap 13 (12-20); Aspartate Amino Transferase 19 U/L (5-31); Bilirubin Total 0.4 mg/dL (0.0-1.0); Blood Urea Nitrogen 22 mg/dL (9-16); Calcium 9.9 mg/dL (8.4-10.2); Carbon Dioxide 27 mmol/L (22-29); Chloride 102 mmol/L (96-108); Creatinine Clr Calc Pharmacy 48.7; Estimated Glomerular Filt Rate > 60; Glucose Random 129 mg/dL (60-115); Magnesium 1.9 mg/dL (1.6-2.6); Potassium 3.8 mmol/L (3.3-5.1); Sodium 138 mmol/L (135-145); Total Protein 8.2 g/dL (6.5-8.0)
[2023-11-24 13:13] VITALS: PULSE 78; O2SAT 97
--- NOTE | 2023-11-24 16:04 | PC.NURSE ---
able to stand and pivot onto commode w/ 1 assist. increased pain with movement. patient remains pt/cm
[2023-11-24 16:07] VITALS: BP 177/66; PULSE 77; RESP 16; TEMP 36.9; O2SAT 96
--- NOTE | 2023-11-24 16:09 | MHC.CM.ED ---
Received case management consult from Carolyn HOLDER. Patient came to the ER due to right knee pain. Work up found osteoathritis. Physical therapy eval completed. Short term rehab is recommended. Patient has [facility] Preferred. Referral sent to all facilities contracted with patient's insurance to see who can offer a bed. [facility], [facility], [facility], [place], and [facility] are able to offer a bed. Attempted to meet with patient in regards to discharge planning. Patient is primarily Kazakh speaking but is able to speak/understand some Kyrgyz. Patient has not been to rehab in the past. Spoke with patient's wycgxsap-cu-ptq/HCP, Fiona, via telephone at [phone]. Fiona confirms patient has never been to [facility]. Patient has not received any Covid vaccines. Facility choices explained. [facility] is 1st choice. Patient can leave for [facility] at 530pm. [facility] FERNANDES booked. [facility] with chart. Patient, Lorraine Jaimes RN and Carolyn HOLDER aware. Fiona concerned about orthopedic follow up for patient. Appointment scheduled with Dr Day on 12/13 at 11am. Continue to monitor for d/c needs.
[2023-11-24] MEDS: Lidocaine 4 % Patch ADH..PATCH 1 PATCH TRANSDERMA (16:15)
[2023-11-24 16:16] LABS: Appearance Urine Clear; Color Urine Yellow; Glucose Urine UA Negative (Negative); Leukocyte Esterase Urine Trace (Negative); Nitrite Urine Negative (Negative); PH 7.5 (5.0-9.0); UMIC TRIGGER UACC YES; Urine Blood Negative (Negative); Urine Ketones Negative (Negative); Urine Protein Negative (Neg-Trace)
[2023-11-24 16:19] LABS: Bacteria Urine None Seen (None Seen); Hyaline Casts Urine 0-2 /LPF (0-2); RBC Urine 0-2 /HPF (0-2); Squamous Epithelial Cell Urine 0-2 /HPF (0-2); UACC Culture Trigger YES
[2023-11-24 16:41] LABS: COVID-19 Test Negative (Negative); IDNOW Serial# 152EDE1D
== END 2023-11-24 18:16 | disposition home or self-care (01) ==
PROVIDERS: Physician Assistant; Emergency Provider Emergency Medicine; PCP Internal Medicine
DX: M16.11 Unilateral primary osteoarthritis, right hip (principal); M25.551 Pain in right hip; M17.11 Unilateral primary osteoarthritis, right knee; M25.561 Pain in right knee; I10 Essential (primary) hypertension; G89.4 Chronic pain syndrome; Z79.899 Other long term (current) drug therapy; Z87.440 Personal history of urinary (tract) infections
CPT/HCPCS: 36415; 73502; 73564; 80053; 81001; 83735; 85025; 85379; 85610; 87086; 87635; 97162; 99284

== ENCOUNTER 2023-12-09 13:09 | Outpatient (AMB) | payer MEDICARE, SELFPAY ==
--- NOTE | 2023-12-09 13:12 | MHC.OFFVIS ---
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 Patient reports that she has had ongoing right knee pain for about 2 weeks now, she also complains of pain in the groin area. She was taking Celebrex at an inpatient rehab, [facility] if this was helpful. 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 She complains of pain in her right knee with WB activities, which increased in the last ~3 weeks. Her pain is worse with walking, and improves with rest. She was seen in the ED on 11/24/23 for right hip & knee pain, with known hip & knee OA. She also complains of right-sided groin pain today, but her chief complaint is of her knee. She was given a course of Oxycodone and referred here. She has been taking Celebrex at an inpatient rehab, with some relief She has a hx of CPS and poor kidney function which makes other NSAIDs difficult to take. She denies any blood thinners. [facility] Medical History Cervicalgia Chronic neck pain Chronic pain syndrome Hypertension Postlaminectomy syndrome of cervical region Spondylosis of cervical joint without myelopathy Surgical History H/O neck surgery Social History (System 01/21/23 @ 15:06 by Juliana De Los Santos) Household Members: Unknown / Unable to assess Housing: House Do you presently have visiting nurse or other home services: No Alcohol intake: never Comment: sitter Patient Tobacco Use Status: Never used Tobacco Advance Directives Date on File: 01/22/21 service: No Current occupational status: retired Sexual orientation: Straight/Heterosexual Review of Systems Const All systems reviewed & are unremarkable except as noted in HPI and below Physical Exam Const General: no acute distress, alert and awake Orientation/consciousness: patient oriented x3 HEENT Head: Yes normocephalic and Yes atraumatic Mouth: moist mucous membranes Eyes General: appearance normal, both eyes and all related structures EOM: EOMs intact bilaterally Chest Other: no audible wheezing. Resp Other: No audible wheezing Effort & Inspection: normal respiratory effort and able to speak in complete sentences Cardio Other: Radial pulse palpable with no rythmic abnormalities Jugular venous distension: no JVD Back/Spine/Pelvis Cervical Spine: normal cervical lordosis Skin General skin exam: turgor normal Rashes: no rashes Neuro General: patient oriented x3 Extrem Other: medial compartment ttp right knee no effusion varus alignment 5-125 deg motion + gait antalgia Psych Appearance: grossly normal Mental Status: mental status grossly normal Speech and movement: Normal speech and movement present Affect: normal affect Attitude: cooperative Office Procedures Joint Injection/Drain Joint Injection/Drain Details: Injected 1 mL of Decadron and 3 mL 1% lidocaine and 3 mL of 0.25% Marcaine. Site was prepped using aseptic technique. Patient tolerated the procedure well. Primary Site: right knee Approach Used: anterolateral Coding - Large joint Procedure code (CPT) selection complete Results Reviewed Results Reviewed: I personally reviewed relevant radiographs. Medial compartment OA right knee Assessment & Plan Assessment & Plan (1) Arthritis of right knee: Code(s): M17.11 - Unilateral primary osteoarthritis, right knee Plan: Acute pain in her right knee. Known OA. No injury. Her hips are not symptomatic and radiographs are benign. I injected her left knee. Celebrex sent to pharmacy Plan Prepared for Ramesh Day MD by Niels Guerrero, medical pathologist, on 12/09/23 at 1:20 PM, EST. Medications: New celecoxib (Celebrex) 200 mg PO DAILY 30 caps 2RF Coding Level of Care Code New Pt Level 4 (83278) Diagnoses Arthritis of right knee M17.11 CPT Codes Coding - Large joint: 02756 - Large joint ([id number])
== END 2023-12-09 15:06 | disposition home or self-care (01) ==
PROVIDERS: PCP Internal Medicine; Visit Provider Orthopaedic Surgery
DX: M17.11 Unilateral primary osteoarthritis, right knee (principal)
CPT/HCPCS: 20610; 99204

== ENCOUNTER → 2023-12-09 13:09 | Outpatient (BNVA) | payer MEDICARE, OTHER, SELFPAY | PROVIDERS: PCP Internal Medicine; Visit Provider Orthopaedic Surgery | DX: M17.11 Unilateral primary osteoarthritis, right knee (principal) | CPT/HCPCS: 20610; 99202; J0665; J1100 ==

== ENCOUNTER 2024-01-11 10:54 | Outpatient (REF) | payer MEDICARE, SELFPAY ==
[2024-01-11 13:12] LABS: MANUAL DIFF FLAG NO
[2024-01-11 13:40] LABS: Basophils Absolute Auto 0.1 X10*3/uL (0.0-0.2); Basophils Percent Auto 0.8 % (0-2); Eosinophils Absolute Auto 0.4 X10*3/uL (0.0-0.4); Eosinophils Percent Auto 4.3 % (0-4); Hematocrit 37.7 % (37.0-47.0); Hemoglobin 12.6 g/dl (12.0-16.0); Imm Gran Abs Auto 0.03 X10*3/uL (0.00-0.03); Imm Gran Pct Auto 0.3 % (0.0-0.4); Lymphocytes Absolute Auto 2.9 X10*3/uL (1.2-4.9); Mean Corpuscular HGB Conc 33.4 g/dl (31.0-35.0); Mean Corpuscular Hemoglobin 32.3 pg (27.0-33.0); Mean Corpuscular Volume 96.7 fL (80.0-98.0); Mean Platelet Volume 11.3 fL (9.4-12.3); Monocytes Absolute Auto 0.6 X10*3/uL (0.1-1.2); Monocytes Percent Auto 6.6 % (2-11); Neutrophils Absolute Auto 4.9 x10*3/uL (2.0-8.3); Platelet Count 284 X10*3/uL (160-400); Red Cell Distribution Width 13.9 % (11.0-16.0); White Blood Count 8.8 X10*3/uL (4.8-10.8)
[2024-01-11 13:58] LABS: Alanine Aminotransferase 16 U/L (0-31); Albumin Level 4.3 g/dL (3.5-5.0); Alkaline Phosphatase 77 U/L (39-117); Anion Gap 13 (12-20); Aspartate Amino Transferase 21 U/L (5-31); Bilirubin Total 0.3 mg/dL (0.0-1.0); Blood Urea Nitrogen 25 mg/dL (9-16); Calcium 9.6 mg/dL (8.4-10.2); Carbon Dioxide 27 mmol/L (22-29); Chloride 105 mmol/L (96-108); Cholesterol 180 mg/dL (<200); Estimated Glomerular Filt Rate > 60; Glucose Random 121 mg/dL (60-115); HDL Cholesterol 78 mg/dL (>40); LDL Cholesterol Calculated 73 mg/dL (<100); Potassium 4.4 mmol/L (3.3-5.1); Sodium 141 mmol/L (135-145); Total Protein 7.6 g/dL (6.5-8.0); Triglycerides 147 mg/dL (<150)
[2024-01-11 14:12] LABS: Thyroid Stimulating Hormone 10.81 uIU/mL (0.32-4.0)
[2024-01-11 14:24] LABS: Folate 6.1 ng/mL (> or = 4.0); Vitamin B12 348 pg/mL (200-900)
== END 2024-01-11 10:55 | disposition home or self-care (01) ==
LOC: HO.10HDL 10:54
PROVIDERS: Visit Provider Internal Medicine
DX: Z00.01 Encounter for general adult medical examination with abnormal findings (principal); M17.11 Unilateral primary osteoarthritis, right knee; M16.0 Bilateral primary osteoarthritis of hip; I10 Essential (primary) hypertension; E03.8 Other specified hypothyroidism; E78.00 Pure hypercholesterolemia, unspecified; F02.80 Dementia in other diseases classified elsewhere, unspecified severity, without behavioral disturbance, psychotic disturbance, mood disturbance, and anxiety
CPT/HCPCS: 36415; 80053; 80061; 82607; 82746; 84443; 85025

== ENCOUNTER 2024-05-15 14:13 | Outpatient (AMB) | payer MEDICARE, SELFPAY ==
--- NOTE | 2024-05-15 14:13 | MHC.OFFVIS ---
Vital Signs 05/15/24 14:14 Height 4 ft 10 in Weight 179 lb BMI 37.4 Intake Visit Reasons: Inj-Right knee inj.-last inj 12/09/23 Intake Note: Lennie is an 88 year old female who presents today for a follow up of her right knee OA, last injection was done 12/09/23. Patient reports that this injection was helpful and she would like to repeat injection in the right knee today Allergies No Known Allergies Allergy (Verified 12/09/23 13:13) HPI HPI Inj-Right knee inj.-last inj 12/09/23: Details: Lennie is an 88 year old female who presents today for a follow up of her right knee OA, last injection was done 12/09/23. Patient reports that this injection was helpful and she would like to repeat injection in the right knee today PFSH Medical History Cervicalgia Chronic neck pain Chronic pain syndrome Hypertension Postlaminectomy syndrome of cervical region Spondylosis of cervical joint without myelopathy Surgical History H/O neck surgery Social History (System 01/21/23 @ 15:06 by Juliana De Los Santos) Household Members: Unknown / Unable to assess Housing: House Do you presently have visiting nurse or other home services: No Alcohol intake: never Comment: sitter Patient Tobacco Use Status: Never used Tobacco Advance Directives Date on File: 01/22/21 service: No Current occupational status: retired Sexual orientation: Straight/Heterosexual Physical Exam Vital Signs: BMI result Body Mass Index 37.4 Const General: no acute distress, alert and awake Orientation/consciousness: patient oriented x3 HEENT Head: Yes normocephalic and Yes atraumatic Mouth: moist mucous membranes Eyes General: appearance normal, both eyes and all related structures EOM: EOMs intact bilaterally Chest Other: no audible wheezing. Resp Other: No audible wheezing Effort & Inspection: normal respiratory effort and able to speak in complete sentences Back/Spine/Pelvis Cervical Spine: normal cervical lordosis Skin General skin exam: turgor normal Rashes: no rashes Neuro General: patient oriented x3 Extrem Other: medial compartment ttp right knee no effusion varus alignment 5-125 deg motion + gait antalgia Psych Appearance: grossly normal Mental Status: mental status grossly normal Speech and movement: Normal speech and movement present Affect: normal affect Attitude: cooperative Office Procedures Joint Injection/Aspiration Joint Injection/Aspiration Details: Injected 1 mL of Decadron and 3 mL 1% lidocaine and 3 mL of 0.25% Marcaine. Site was prepped using aseptic technique. Patient tolerated the procedure well. Primary Site: right knee Approach Used: anterolateral Coding - Large joint Procedure code (CPT) selection complete Assessment & Plan Assessment & Plan (1) Arthritis of right knee: Code(s): M17.11 - Unilateral primary osteoarthritis, right knee Category: Medical Plan: 88 yo F with chronic right knee pain 2/2 OA. Injected right knee. Coding Level of Care Code Est Pt Level 3 (12600) Diagnoses Arthritis of right knee M17.11 CPT Codes Coding - Large joint: 63589 - Large joint ([id number])
[2024-05-15 14:14] VITALS: BMI 37.4
== END 2024-05-15 14:35 | disposition home or self-care (01) ==
PROVIDERS: PCP Internal Medicine; Visit Provider Orthopaedic Surgery
DX: M17.11 Unilateral primary osteoarthritis, right knee (principal)
CPT/HCPCS: 20610; 99213

== ENCOUNTER → 2024-05-15 14:13 | Outpatient (BNVA) | payer MEDICARE, SELFPAY | PROVIDERS: PCP Internal Medicine; Visit Provider Orthopaedic Surgery | DX: M17.11 Unilateral primary osteoarthritis, right knee (principal) | CPT/HCPCS: 20610; 99212; J0665; J1100 ==

== ENCOUNTER 2024-07-24 15:50 | Outpatient (REF) | payer MEDICARE, SELFPAY ==
[2024-07-24 17:28] LABS: Alanine Aminotransferase 13 U/L (0-31); Albumin Level 4.5 g/dL (3.5-5.0); Alkaline Phosphatase 77 U/L (39-117); Anion Gap 12 (12-20); Aspartate Amino Transferase 17 U/L (5-31); Bilirubin Total 0.4 mg/dL (0.0-1.0); Blood Urea Nitrogen 29 mg/dL (9-16); Calcium 10.2 mg/dL (8.4-10.2); Carbon Dioxide 26 mmol/L (22-29); Chloride 106 mmol/L (96-108); Estimated Glomerular Filt Rate 50; Glucose Random 109 mg/dL (60-115); Potassium 4.3 mmol/L (3.3-5.1); Sodium 140 mmol/L (135-145)
[2024-07-24 17:46] LABS: Thyroid Stimulating Hormone 0.08 uIU/mL (0.32-4.0)
== END 2024-07-24 15:51 | disposition home or self-care (01) ==
LOC: HO.LAB 15:50
PROVIDERS: PCP Internal Medicine; Visit Provider Internal Medicine
DX: E03.8 Other specified hypothyroidism (principal); F32.5 Major depressive disorder, single episode, in full remission; I10 Essential (primary) hypertension; R60.0 Localized edema
CPT/HCPCS: 36415; 80053; 84443

== ENCOUNTER 2025-01-08 10:43 | Outpatient (REF) | payer MEDICARE, SELFPAY ==
[2025-01-08 13:36] LABS: Alanine Aminotransferase 25 U/L (0-31); Albumin Level 4.4 g/dL (3.5-5.0); Alkaline Phosphatase 100 U/L (39-117); Anion Gap 13 (12-20); Aspartate Amino Transferase 25 U/L (5-31); Bilirubin Total 0.5 mg/dL (0.0-1.0); Blood Urea Nitrogen 40 mg/dL (9-16); Calcium 9.5 mg/dL (8.4-10.2); Carbon Dioxide 26 mmol/L (22-29); Chloride 105 mmol/L (96-108); Estimated Glomerular Filt Rate 57; Glucose Random 118 mg/dL (60-115); Potassium 4.6 mmol/L (3.3-5.1); Sodium 139 mmol/L (135-145)
[2025-01-08 13:58] LABS: Thyroid Stimulating Hormone 0.36 uIU/mL (0.32-4.0)
== END 2025-01-08 10:44 | disposition home or self-care (01) ==
LOC: HO.10HDL 10:43
PROVIDERS: Visit Provider Internal Medicine
DX: E03.8 Other specified hypothyroidism (principal); F32.5 Major depressive disorder, single episode, in full remission; I10 Essential (primary) hypertension; R60.0 Localized edema
CPT/HCPCS: 36415; 80053; 84443

== ENCOUNTER 2025-01-10 13:51 | Outpatient (AMB) | payer MEDICARE, SELFPAY ==
--- NOTE | 2025-01-10 13:56 | MHC.OFFVIS ---
Vital Signs 01/10/25 14:04 Height 4 ft 10 in Weight 179 lb BMI 37.4 Intake Visit Reasons: OV- right knee pain, last inj 05/15/24 Intake Note: Lennie is an 89 year old female who presents today with her daughter in law for a follow up of right knee OA, last injection 05/15/25. At patient last visit with Dr. Day she was given a cortisone injection. She states injection provided her with relief and would like to repeat injection today. Currently her pain is located at the medial aspect of knee. Allergies No Known Allergies Allergy (Verified 01/10/25 14:03) HPI HPI OV- right knee pain, last inj 05/15/24: Details: 89-year-old female returns to the office today for ongoing right knee pain. Complains of medial-sided joint pain. Pain with prolonged walking and stairs. She has had injections in the past with good relief. [facility] Medical History Cervicalgia Chronic neck pain Chronic pain syndrome Hypertension Postlaminectomy syndrome of cervical region Spondylosis of cervical joint without myelopathy Surgical History H/O neck surgery Social History Household Members: Unknown / Unable to assess Housing: House Do you presently have visiting nurse or other home services: No Alcohol intake: never Comment: sitter Patient Tobacco Use Status: Never used Tobacco Advance Directives Date on File: 01/22/21 service: No Current occupational status: retired Sexual orientation: Straight/Heterosexual Review of Systems Const All systems reviewed & are unremarkable except as noted in HPI and below Physical Exam Vital Signs: BMI result Body Mass Index 37.4 Extrem Other: Right knee normal to inspection no joint effusion present. Full range of motion with crepitus and tenderness along the medial joint line. Calf supple nontender neurovascularly intact. Office Procedures AMB Joint Injection/Aspiration Joint Injection/Aspiration Primary Site: right knee Prep: site was prepped using aseptic technique, ethochloride spray was applied and injection warnings given Injected: 40 mg of, with 1 mL of, 1% plain lidocaine, in the joint and decadron Approach Used: anterolateral Procedure: The patient tolerated the procedure well and there was some relief with the local anesthesia Coding 50286 - Glenohumeral/Tronchanteric Bursa/Intraarticular Procedure code (CPT) selection complete Assessment & Plan Assessment & Plan (1) Arthritis of right knee: Code(s): M17.11 - Unilateral primary osteoarthritis, right knee Category: Medical Plan: We discussed options today, which include steroid injection. The patient did consent to move forward with the injection, which was tolerated well.? I recommended rest, ice and elevation and OTC antiinflammatories prn for discomfort. If symptoms persist over the next 6-8 weeks, they will contact our office, otherwise, prn Coding Level of Care Code Est Pt Level 3 (60910) Complex EM visit Add On G2211 Diagnoses Arthritis of right knee M17.11 CPT Codes Coding - Joint 7: 15721 - Glenohumeral/Tronchanteric Bursa/Intraarticular ([id number])
[2025-01-10 14:04] VITALS: BMI 37.4
--- OUTSIDE RECORDS SUMMARY | 2025-01-10 16:39 | XMS_ITS | Clinical Summary ---
Author Organization [facility] Address [address] [place] [address] Care Team Providers Care Gaming Manager Name Role Phone Ester Robles MD Primary Care Provider Allergies No known active allergies Medications Medication Sig Dispensed Refills Start Date End Date Status levothyroxine (SYNTHROID, LEVOTHROID) 100 MCG tablet Take 100 mcg by mouth daily on an empty stomach. Active lidocaine (LIDODERM) 5 % patch Place 1 patch on the skin daily. Apply patch and leave on for 12 hours then remove. Patch may remain on skin for 12 hours per day. Active pravastatin (PRAVACHOL) 80 MG tablet Take 80 mg by mouth nightly. Active amLODIPine (NORVASC) 5 MG tablet Take 5 mg by mouth daily. Active tiZANidine (ZANAFLEX) 2 MG tablet Take 2 mg by mouth 3 (three) times a day as needed for muscle spasms. Active DULoxetine (CYMBALTA) 60 MG capsuleIndications :Myxedema coma (HCC) Take 1 capsule (60 mg total) by mouth daily. Restart when your PCP tells you it is appropriate to restart 30 capsule 08/08/2021 Active gabapentin (NEURONTIN) 300 MG capsuleIndications :Myxedema coma (HCC) Take 1 capsule (300 mg total) by mouth 3 (three) times a day. Restart when your PCP tells you it is appropriate to restart 90 capsule 08/08/2021 Active LORazepam (ATIVAN) 0.5 MG tabletIndications: Myxedema coma (HCC) Take 1 tablet (0.5 mg total) by mouth daily as needed for anxiety. 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 Acquired hypothyroidism 08/06/2021 Syncope 08/06/2021 NAIMA (acute kidney injury) 08/06/2021 Social History Tobacco Use Types Packs/Day Years Used Date Smoking Tobacco: Never Assessed Sex and Gender Information Value Date Recorded Sex Assigned at Not on file Gender Identity Not on file Sexual Orientation Not on file Last Filed Vital Signs Vital Sign Reading Time Taken Comments Blood Pressure 148/76 08/08/2021 9:46 AM EDT Pulse 79 08/08/2021 7:00 AM EDT Temperature 36.7 ??C (98 ??F) 08/08/2021 7:00 AM EDT Respiratory Rate 16 08/08/2021 7:00 AM EDT Oxygen Saturation 95% 08/08/2021 7:00 AM EDT Inhaled Oxygen Concentration - - Weight 68 kg (149 lb 14.6 oz) 08/08/2021 5:39 AM EDT Height 152.4 cm (5') 08/06/2021 1:00 AM EDT Body Mass Index 29.28 08/06/2021 1:00 AM EDT Plan of Treatment Health Maintenance Due Date Last Done Comments DTaP/Tdap/Td Vaccines (1 - Tdap) 1956 Pneumococcal Vaccines 50+ (1 of 1 - PCV) 1987 Zoster (Shingles) Vaccine (1 of 2) 1987 DXA Bone Density (Females,Ag es 65 and older) 2002 RSV Vaccine 60 years and old er and Patients (1 - 1-dose 75+ series) 2012 Influenza Vaccine 05/18/2024 COVID-19 Vaccine ( - 2023-2 5 season) 2024 Hepatitis B Vaccines Aged Out No long er eligible based on patient's age to complete this topic Advance Directives * DNR (Latest Code Status on File) Date Activated Date Inactivated Comments 08/06/2021 1:59 AM Question Answer Comments Decision thoroughly discussed with: Patient Care Teams Gaming Manager Relationship Specialty Start Date End Date Ester Robles MD [address] [address] PCP - General Internal Medicine 08/05/21
== END 2025-01-10 14:20 | disposition home or self-care (01) ==
LOC: HO.HOS 13:52
PROVIDERS: PCP Internal Medicine; Visit Provider Physician Assistant
DX: M17.11 Unilateral primary osteoarthritis, right knee (principal)
CPT/HCPCS: 20610; 99213

== ENCOUNTER → 2025-01-10 13:51 | Outpatient (BNVA) | payer MEDICARE, SELFPAY | PROVIDERS: PCP Internal Medicine; Visit Provider Physician Assistant | DX: M17.11 Unilateral primary osteoarthritis, right knee (principal) | CPT/HCPCS: 20610; 99212; J0665; J1100; J2003 ==

== ENCOUNTER 2025-04-16 11:42 | Outpatient (AMB) | payer MEDICARE, SELFPAY ==
--- NOTE | 2025-04-16 11:45 | A.OFFVIS_ITS ---
Vital Signs 04/16/25 11:57 Height 4 ft 10 in Weight 179 lb BMI 37.4 Intake Visit Reasons: OV- right knee pain, last inj 01/10/25 Intake Note: Lennie is an 89 year old female who presents today for a follow up on her right knee pain, last injection on 01/10/25. Patient reports injection provided her with relief. States pain in both of her knees however her most discomfort is in her right knee. She wishes to repeat injection to her right knee today. Lumber Tying Machine Operator Required: Yes Lumber Tying Machine Operator Language: Malagasy Lumber Tying Machine Operator Services: Lumber Tying Machine Operator Present Lumber Tying Machine Operator Name: Vandana [id number] Allergies No Known Allergies Allergy (Verified 04/16/25 11:58) HPI HPI OV- right knee pain, last inj 01/10/25: Details: Patient returns to the office today for a follow-up right knee pain. She states her last injection was quite helpful and she was able to ambulate without significant limitations. 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 Full range of motion with crepitus and tenderness along the medial joint line. Calf supple nontender neurovascularly intact. Office Procedures AMB Joint Injection/Aspiration Joint Injection/Aspiration Primary Site: right knee Prep: site was prepped using aseptic technique, ethochloride spray was applied and injection warnings given Injected: 80 mg of, DepoMedrol, with 8 mL of, 1% plain lidocaine and in the joint Approach Used: anterolateral Procedure: The patient tolerated the procedure well and there was some relief with the local anesthesia Coding 51706 - Glenohumeral/Tronchanteric Bursa/Intraarticular Procedure code (CPT) selection complete Assessment & Plan Assessment & Plan (1) Arthritis of right knee: Code(s): M17.11 - Unilateral primary osteoarthritis, right knee Category: Medical Plan: We discussed options today, which include steroid injection. The patient did consent to move forward with right knee injection, which was tolerated well.? I recommended rest, ice and elevation and OTC antiinflammatories prn for disc omfort. If symptoms persist over the next 6-8 weeks, they will contact our office, otherwise, prn Coding Level of Care Code Est Pt Level 3 (74784) Complex EM visit Add On G2211 Diagnoses Arthritis of right knee M17.11 CPT Codes Coding - Joint 7: 99760 - Glenohumeral/Tronchanteric Bursa/Intraarticular ([id number])
[2025-04-16 11:57] VITALS: BMI 37.4
--- OUTSIDE RECORDS SUMMARY | 2025-05-28 20:00 | XMS_ITS | Clinical Summary ---
Author Organization Unknown Care Team Providers Care Hot Packer Name Role Phone REYES BOND, CAMERON Unavailable Unavailable REYNA GOEL, JESSIKA Unavailable Unavailable SHAGUFTA ([facility]) [facility], GAETANO Unavailable Unavailable Payers Payer Name Policy Type Policy Number Effective Date Expira tion Date [facility] [employer]AGE [id number] [place] [id number] MEDICARE - [facility] [id number] Problems Condition Name Condition Details Condition Category Status Onset Date Resolution Date Last Treatment Date Treating Clinician Comments DEPRESSION, UNSPECIFIED Active 11-24 00:00: 00 OTHER CHRONIC PAIN Active 11-24 00:00: 00 ESSENTIAL (PRIMARY) HYPERTENSION Active 11-24 00:00: 00 BILATERAL PRIMARY OSTEOARTHRIT IS OF KNEE Active -10 00:00: 00 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 Ordering Clinician Indication Dosage Frequency Signature (SIG) Comments Components lidocaine 5 % topical patch 07-05 00:00: 00 06-05 23:59 :00 No [id number] Per instruc tions DAILY Per instructio ns DAILY (route: topical) Med Classific ation: Dermatolo gical pravastatin 80 mg tablet 04-21 00:00: 00 07-09 23:59 :00 No [id number] Per instruc tions EVERY DAY AT BEDTIME Per instructio ns EVERY DAY AT BEDTIME (route: oral) Med Classific ation: Cardiovas cular Therapy Agents oxycodone 5 mg tablet 18 00:00: 07-19 23:59 :00 No [id number] 1 tablet EVERY 6 HOURS 1 tablet EVERY 6 HOURS (route: oral) Med Classific ation: Analgesic , Anti-infl ammatory or Antipyret ic duloxetine 60 mg capsule,del ayed release 7-16 00:00: 00 06-05 23:59 :00 No [id number] Per instruc tions EVERY DAY Per instructio ns EVERY DAY (route: oral) Med Classific ation: Central Nervous System Agents tizanidine 2 mg tablet 824 00:00: 07-19 23:59 :00 No [id number] Per instruc tions THREE TIMES A DAY NEEDED Per instructio ns THREE TIMES A DAY NEEDED (route: oral) Med Classific ation: Locomotor System lorazepam 0.5 mg tablet 07-09 00:00: 06-05 23:59 :00 No [id number] 1 tablet 3 TIMES DAILY 1 tablet 3 TIMES DAILY (route: oral) Med Classific ation: Central Nervous System Agents cholecalcif nicole (vitamin D3) 250 mcg (10,000 unit) tablet 2019-10 0 00:00: 00 09-02 23:59 :00 No [id number] 1 tablet WEEKLY 1 tablet WEEKLY (route: oral) Med Classific ation: Electroly te Balance-N utritiona l Products diclofenac sodium 75 mg tablet,arline yed release 2019-10 0 00:00: 00 06-05 23:59 :00 No [id number] 1 tablet 2 TIMES DAILY 1 tablet 2 TIMES DAILY (route: oral) Med Classific ation: Analgesic , Anti-infl ammatory or Antipyret ic pravastatin 80 mg tablet 2019-10 0- 00:00: 00 06-05 23:59 :00 No [id number] 1 tablet BEDTIME 1 tablet BEDTIME (route: oral) Med Classific ation: Cardiovas cular Therapy Agents cephalexin 500 mg tablet 2019-10 0-13 00:00: 08-05 23:59 :00 No [id number] 1 tablet EVERY 6 HOURS 1 tablet EVERY 6 HOURS (route: oral) Med Classific ation: Anti-Infe ctive Agents oxycodone 5 mg tablet 2019-10 00:00: 00 09-02 23:59 :00 No [id number] 1 tablet EVERY 8 HOURS 1 tablet EVERY 8 HOURS (route: oral) Med Classific ation: Analgesic , Anti-infl ammatory or Antipyret ic prednisone 20 mg tablet 2019-10 00:00: 00 08-03 23:59 :00 No [id number] 2 tablet DAILY 2 tablet DAILY (route: oral) Med Classific ation: Endocrine acetaminoph en 325 mg tablet 2019-10 00:00: 00 06-05 23:59 :00 No [id number] 2 tablet EVERY 6 HOURS 2 tablet EVERY 6 HOURS (route: oral) Med Classific ation: Analgesic , Anti-infl ammatory or Antipyret ic amlodipine 5 mg tablet 2019-10 00:00: 00 06-05 23:59 :00 No [id number] 1 tablet DAILY 1 tablet DAILY (route: oral) Med Classific ation: Cardiovas cular Therapy Agents ergocalcife rol (vitamin D2) 1,250 mcg (50,000 unit) capsule 2019-10 00:00: 00 06-05 23:59 :00 No [id number] 1 capsule WEEKLY 1 capsule WEEKLY (route: oral) Med Classific ation: Electroly te Balance-N utritiona l Products ibuprofen 600 mg tablet 2019-10 00:00: 00 06-05 23:59 :00 No [id number] 1 tablet 3 TIMES DAILY 1 tablet 3 TIMES DAILY (route: oral) Med Classific ation: Analgesic , Anti-infl ammatory or Antipyret ic levothyroxi ne 100 mcg tablet 2019-10 00:00: 00 06-05 23:59 :00 No [id number] 1 tablet DAILY 1 tablet DAILY (route: oral) Med Classific ation: Endocrine lisinopril 20 mg-hydrochl orothiazide 25 mg tablet 2019-10 00:00: 00 06-05 23:59 :00 No [id number] 1 tablet DAILY 1 tablet DAILY (route: oral) Med Classific ation: Cardiovas cular Therapy Agents tizanidine 2 mg capsule 2019-10 00:00: 00 06-05 23:59 :00 No [id number] 1 capsule EVERY 6 HOURS 1 capsule EVERY 6 HOURS (route: oral) Med Classific ation: Locomotor System lidocaine 5 % topical patch 05-24 00:00: 00 12-07 23:59 :00 No [id number] Per instruc tions DAILY FOR UP TO 12 HOUR S PER DAY Per instructio ns DAILY FOR UP TO 12 HOUR S PER DAY (route: topical) Med Classific ation: Dermatolo gical duloxetine 60 mg capsule,del ayed release 04-07 00:00: 00 10-19 23:59 :00 No [id number] Per instruc tions EVERY DAY Per instructio ns EVERY DAY (route: oral) Med Classific ation: Central Nervous System Agents tizanidine 2 mg tablet 05-26 00:00: 00 06-02 23:59 :00 No [id number] Per instruc tions THREE TIMES A DAY NEEDED Per instructio ns THREE TIMES A DAY NEEDED (route: oral) Med Classific ation: Locomotor System lisinopril 20 mg-hydrochl orothiazide 25 mg tablet - 00:00: 00 06-12 23:59 :00 No [id number] Per instruc tions EVERY DAY Per instructio ns EVERY DAY (route: oral) Med Classific ation: Cardiovas cular Therapy Agents levothyroxi ne 100 mcg tablet 12-07 00:00: 00 Yes [id number] Per instruc tions EVERY DAY Per instructio ns EVERY DAY (route: oral) Med Classific ation: Endocrine lorazepam 0.5 mg tablet 05-26 00:00: 00 06-13 23:59 :00 No [id number] Per instruc tions THREE TIMES A DAY Per instructio ns THREE TIMES A DAY (route: oral) Med Classific ation: Central Nervous System Agents pravastatin 80 mg tablet 2-20 00:00: 00 Yes [id number] Per instruc tions AT BEDTIME Per instructio ns AT BEDTIME (route: oral) Med Classific ation: Cardiovas cular Therapy Agents amlodipine 5 mg tablet 2020-10 0-25 00:00: 00 08-25 23:59 :00 No [id number] 5 mg DAILY 5 mg DAILY (route: oral) Med Classific ation: Cardiovas cular Therapy Agents gabapentin 300 mg capsule 2-20 00:00: 00 Yes [id number] 300 mg 3 TIMES DAILY 300 mg 3 TIMES DAILY (route: oral) Med Classific ation: Central Nervous System Agents lisinopril 20 mg-hydrochl orothiazide 25 mg tablet 2-20 00:00: 00 Yes [id number] 1 tablet DAILY 1 tablet DAILY (route: oral) Med Classific ation: Cardiovas cular Therapy Agents duloxetine 60 mg capsule,del ayed release 2-20 00:00: 00 Yes [id number] 60 mg 2 TIMES DAILY 60 mg 2 TIMES DAILY (route: oral) Med Classific ation: Central Nervous System Agents amlodipine 2.5 mg tablet 2-20 00:00: 00 Yes [id number] 2.5 mg DAILY 2.5 mg DAILY (route: oral) Med Classific ation: Cardiovas cular Therapy Agents meclizine 12.5 mg tablet 2-20 00:00: 00 Yes [id number] 1 tablet 3 TIMES DAILY 1 tablet 3 TIMES DAILY (route: oral) Med Classific ation: Gastroint estinal Therapy Agents tizanidine 2 mg tablet 2-20 00:00: 00 Yes [id number] 1 tablet EVERY 8 HOURS 1 tablet EVERY 8 HOURS (route: oral) Med Classific ation: Locomotor System Celebrex 200 mg capsule 3-05 00:00: 00 Yes [id number] 1 capsule EVERY AM 1 capsule EVERY AM (route: oral) Med Classific ation: Analgesic , Anti-infl ammatory or Antipyret ic Vitamin D2 1,250 mcg (50,000 unit) capsule 4-15 00:00: 00 Yes [id number] 1 capsule WEEKLY 1 capsule WEEKLY (route: oral) Med Classific ation: Electroly te Balance-N utritiona l Products Vital Signs Vital Name Observation Time Observation Value Commen ts Temperature 2025-04-10 08:42:00.000 97.7 [degF] Temperature 2025-04-04 08:00:00.000 97.7 [degF] Temperature 2025-04-03 08:33:00.000 97.7 [degF] Pulse 2025-04-10 08:42:00.000 82 /min Pulse 2025-04-04 08:00:00.000 71 /min Pulse 2025-04-03 08:33:00.000 81 /min Respirations 2025-04-10 08:42:00.000 18 /min Respirations 2025-04-04 08:00:00.000 18 /min Respirations 2025-04-03 08:33:00.000 16 /min Systolic Blood Pressure 2025-04-10 08:42:00.000 129 mm [Hg] Systolic Blood Pressure 2025-04-04 08:00:00.000 124 mm [Hg] Systolic Blood Pressure 2025-04-03 08:33:00.000 129 mm [Hg] Diastolic Blood Pressure 2025-04-10 08:42:00.000 78 mm [Hg] Diastolic Blood Pressure 2025-04-04 08:00:00.000 68 mm [Hg] Diastolic Blood Pressure 2025-04-03 08:33:00.000 78 mm [Hg] Plan of Treatment Planned Activity Planned Date Details Comments Future Scheduled Test SKILLED NU RSE TO EVALUATE PATIENT, IDENTIFY PRIMARY AND CO-MORBID CONDITIONS CODED PER CODING GUIDELINES, AND DEVELOP PATIENT SPECIFIC PLAN OF CARE THAT INCLUDES PATIENT GOAL FOR HOME HEALTH. [code = SKILLED NURSE TO EVALUATE PATIENT, IDENTIFY PRIMARY AND CO-MORBID CONDITIONS CODED PER CODING GUIDELINES, AND DEVELOP PATIENT SPECIFIC PLAN OF CARE THAT INCLUDES PATIENT GOAL FOR HOME HEALTH.] Future Scheduled Test SKILLED NU RSE WILL MAINTAIN SITUATIONAL AWARENESS FOR SAFETY AND WILL NOTIFY CLINICAL ESTIMATOR PRINTING PLATE MAKING AND PHYSICIAN/PROVIDER WITH ANY CHANGE IN CONDITION. [code = SKILLED NURSE WILL MAINTAIN SITUATIONAL AWARENESS FOR SAFETY AND WILL NOTIFY CLINICAL ESTIMATOR PRINTING PLATE MAKING AND PHYSICIAN/PROVIDER WITH ANY CHANGE IN CONDITION.] Future Scheduled Test SKILLED NU RSE TO ASSESS PATIENTS PSYCHOSOCIAL STATUS TO IDENTIFY POTENTIAL ISSUES THAT MAY COMPLICATE THE PROVISION OF THE PLAN OF CARE INCLUDING THE PATIENTS ABILITY TO ACCESS COMMUNITY RESOURCES AND PSYCHOSOCIAL SUPPORT SERVICES. [code = SKILLED NURSE TO ASSESS PATIENTS PSYCHOSOCIAL STATUS TO IDENTIFY POTENTIAL ISSUES THAT MAY COMPLICATE THE PROVISION OF THE PLAN OF CARE INCLUDING THE PATIENTS ABILITY TO ACCESS COMMUNITY RESOURCES AND PSYCHOSOCIAL SUPPORT SERVICES.] Future Scheduled Test SKILLED NU RSE TO O/A OF PATIENTS MENTAL/BEHAVIORAL STATUS, ASSESS VITAL SIGNS EACH VISIT ALLOW 2 PRNS FOR MEDICATION MANAGEMENT. [code = SKILLED NURSE TO O/A OF PATIENTS MENTAL/BEHAVIORAL STATUS, ASSESS VITAL SIGNS EACH VISIT ALLOW 2 PRNS FOR MEDICATION MANAGEMENT.] Future Scheduled Test SKILLED NU RSE FOR O/A OF GENERAL HEALTH STATUS OF PAIN, CARDIAC, RESPIRATORY, GASTROINTESTINAL, GENITOURINARY, SKIN, NEUROLOGIC, ENDOCRINE SYSTEMS TO IDENTIFY CHANGES ASSOCIATED WITH EXACERBATION FOR EARLY INTERVENTION OF COMPLICATIONS EACH VISIT [code = SKILLED NURSE FOR O/A OF GENERAL HEALTH STATUS OF PAIN, CARDIAC, RESPIRATORY, GASTROINTESTINAL, GENITOURINARY, SKIN, NEUROLOGIC, ENDOCRINE SYSTEMS TO IDENTIFY CHANGES ASSOCIATED WITH EXACERBATION FOR EARLY INTERVENTION OF COMPLICATIONS EACH VISIT ] Future Scheduled Test SKILLED NU RSE TO PROVIDE TEACHING ON SIGNS AND SYMPTOMS AND MANAGEMENT OF HYPERTENSION. [code = SKILLED NURSE TO PROVIDE TEACHING ON SIGNS AND SYMPTOMS AND MANAGEMENT OF HYPERTENSION.] Future Scheduled Test SKILLED NU RSE FOR O/A AND SKILLED TEACHING RELATED TO MANAGEMENT OF DEPRESSIVE SYMPTOMS AND/OR DEPRESSION. SN TO REPORT SIGNIFICANT CHANGE IN DEPRESSIVE SYMPTOMS TO CLINICAL PROVIDER FOR EARLY INTERVENTION. [code = SKILLED NURSE FOR O/A AND SKILLED TEACHING RELATED TO MANAGEMENT OF DEPRESSIVE SYMPTOMS AND/OR DEPRESSION. SN TO REPORT SIGNIFICANT CHANGE IN DEPRESSIVE SYMPTOMS TO CLINICAL PROVIDER FOR EARLY INTERVENTION.] Future Scheduled Test SKILLED NU RSE FOR O/A AND SKILLED TEACHING RELATED TO SIGNS AND SYMPTOMS AND MANAGEMENT OF ARTHRITIS [code = SKILLED NURSE FOR O/A AND SKILLED TEACHING RELATED TO SIGNS AND SYMPTOMS AND MANAGEMENT OF ARTHRITIS ] Future Scheduled Test SKILLED NU RSE TO ADMINISTER MEDICATIONS EACH VISIT AND PRE-POUR MEDICATIONS EACH VISIT PER MEDICATION LIST. [code = SKILLED NURSE TO ADMINISTER MEDICATIONS EACH VISIT AND PRE-POUR MEDICATIONS EACH VISIT PER MEDICATION LIST.] Goal 2024-01-31 Patient Goal - UNABLE TO STA TE Goal 2024-11-27 Patient Goal - UNABLE TO STA TE Goal 2024-09-27 Patient Goal - UNABLE TO STA TE Goal 2024-07-31 Patient Goal - UNABLE TO STA TE Goal 2024-05-30 Patient Goal - UNABLE TO STA TE Goal 2024-04-03 Patient Goal - UNABLE TO STA TE Goal Patient Goal - UNABLE TO STA TE Goal 2025-03-26 Patient Goal - UNABLE TO STA TE Goal 2025-01-25 Patient Goal - UNABLE TO STA TE Goal Provider Goal - A PLAN OF CARE WILL BE ESTABLISHED THAT MEETS PATIENT'S SENIOR CARE NEEDS AND INCLUDES PATIENT GOAL FOR HOME HEALTH. Goal Provider Goal - PATIENT WILL REMAIN SAFE IN THE COMMUNITY AND WILL BE FREE OF DANGER TO SELF AND OTHERS THROUGHOUT THE CERTIFICATION PERIOD. Goal Provider Goal - PSYCHOSOCIAL NEEDS WILL BE IDENTIFIED AND PLAN IMPLEMENTED TO MINIMIZE RISK THROUGHOUT CERTIFICATION PERIOD. Goal Provider Goal - ALTERED MENTAL/BEHAVIORAL STATUS WILL BE IDENTIFIED PROMPTLY AND INTERVENTION INITIATED QUICKLY TO MINIMIZE ASSOCIATED RISKS THROUGHOUT CERTIFICATION PERIOD. Goal Provider Goal - CHANGE IN GENERAL HEALTH STATUS WILL BE IDENTIFIED AND REPORTED TO PHYSICIAN FOR PROMPT INTERVENTION TO MINIMIZE ASSOCIATED RISKS THROUGHOUT CERTIFICATION PERIOD. Goal Provider Goal - PATIENT/CAREGIVER WILL VERBALIZE SIGNS AND SYMPTOMS OF HYPERTENSION AND WILL BE ABLE TO DEMONSTRATE ABILITY TO MANAGE EXACERBATION BY END OF THE EPISODE. Goal Provider Goal - PATIENT WILL REMAIN SAFE WITHOUT DECOMPENSATION IN DEPRESSIVE CONDITION, WHILE MAINTAINING OPTIMAL LEVEL OF MENTAL HEALTH AND WELL BEING THROUGHOUT CERTIFICATION PERIOD. Goal Provider Goal - PATIENT/CAREGIVER WILL VERBALIZE UNDERSTANDING OF ARTHRITIS DISEASE INCLUDING SIGNS AND SYMPTOMS, MANAGEMENT, AND PRESCRIBED TREATMENT REGIMEN BY END OF EPISODE. Goal Provider Goal - PATIENT WILL COMPLY WITH MEDICATION WHEN SKILLED NURSE ADMINISTERS AND PRE-POURS MEDICATION THROUGHOUT CERTIFICATION PERIOD. Progress Notes Progress Notes <paragraph>[Visit Date: 2024 by JESSIKA ORELLANA RN]:</paragraph><paragraph>INSTRUCTED PATIENT/CAREGIVER REGARDING PAIN MANAGEMENT TECHNIQUES INCLUDING HEATING PAD APPLICATION, FREQUENT POSITION CHANGES</paragraph> Encounters Start Date/Time End Date/Time Encounter Type Admission Type [facility]ending [facility] Care Facility Care Department Encounter ID Discharge Date Discharge Status Discharge Condition Discharge Reason Percent Goals Met 2025-03-31 00:00:00 2025-05-29 00:00:00 [facility] [id number] 36.84
== END 2025-04-16 12:30 | disposition home or self-care (01) ==
LOC: HO.HOS 11:43
PROVIDERS: PCP Internal Medicine; Visit Provider Physician Assistant
DX: M17.11 Unilateral primary osteoarthritis, right knee (principal)
CPT/HCPCS: 20610; 99213

== ENCOUNTER → 2025-04-16 11:42 | Outpatient (BNVA) | payer MEDICARE, SELFPAY | PROVIDERS: PCP Internal Medicine; Visit Provider Physician Assistant | DX: M17.11 Unilateral primary osteoarthritis, right knee (principal); M25.561 Pain in right knee | CPT/HCPCS: 20610; 99212; J1010; J2003 ==

== ENCOUNTER 2025-07-09 10:48 | Outpatient (REF) | payer MEDICARE, SELFPAY ==
[2025-07-09 13:12] LABS: MANUAL DIFF FLAG NO
[2025-07-09 13:20] LABS: Hematocrit 35.1 % (37.0-47.0); Hemoglobin 11.8 g/dl (12.0-16.0); Imm Gran Abs Auto 0.03 X10*3/uL (0.00-0.03); Imm Gran Pct Auto 0.4 % (0.0-0.4); Lymphocytes Absolute Auto 2.3 X10*3/uL (1.2-4.9); Mean Corpuscular HGB Conc 33.6 g/dl (31.0-35.0); Mean Corpuscular Hemoglobin 32.2 pg (27.0-33.0); Mean Corpuscular Volume 95.6 fL (80.0-98.0); NRBC Abs Auto 0.000 X10*3/uL (0.0-0.012); NRBC Pct Auto 0.0 /100WBC (0.0-0.2); Platelet Count 283 X10*3/uL (160-400); Red Blood Count 3.67 X10*6/uL (4.20-5.50); White Blood Count 8.2 X10*3/uL (4.8-10.8)
--- OUTSIDE RECORDS SUMMARY | 2025-07-09 13:22 | XMS_ITS ---
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
--- OUTSIDE RECORDS SUMMARY | 2025-07-09 13:22 | XMS_ITS ---
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 11/24/2023 - 12/06/2023 Luiz Hicks [address], [address], [facility] (Office): : [facility] 11/24/2023 - 12/06/2023 Immunizations Immunization Status Vaccine Details Vaccine Code CodeSystem Date Notes Influenza cancelled Influenza, high-dose, split virus, quadrivalent, injectable, preservative free 197 CVX created date: 12/06/2023 consent date: 12/06/2023 Offered influenza vaccine before discharge this shift. resident/fam ronni remain refusing Pneumovax Dose 1 cancelled Pneumococcal conjugate vaccine 20-valent (PCV20), polysaccharide [id number] conjugate, adjuvant, preservative free 216 CVX created date: 12/06/2023 consent date: 12/06/2023 Offered influenza vaccine before discharge this shift. resident/fam ronni remain refusing COVID-19 Vaccine Single Dose cancelled unknown vaccine or immune globulin 999 CVX created date: 12/06/2023 consent date: 12/06/2023 Resident offered at time of discharge, s/t previous refusal Mental Status Section Date Assessment Total Score Description 12/06/2023 BIMS 15 cognitively int act CAM 0 No delirium ind icated PHQ-9 01 minimal depress ion 2023 BIMS 14 cognitively int act CAM 0 No delirium ind icated PHQ-9 01 minimal depress ion Problems Problem # Description Date of onset Resolved Date Code CodeSystem Concern Status 1 CERVICALGIA 11/24/[address] active 2 CHRONIC PAIN SYNDROME 11/24/[address] active 3 ESSENTIAL (PRIMARY) HYPERTENSION 11/24/[address] active 4 MAJOR DEPRESSIVE DISORDER, SINGLE EPISODE, UNSPECIFIED 11/24/[address] active 5 PERSONAL HISTORY OF URINARY (TRACT) INFECTIONS 11/24/[address] active 6 POSTLAMINECTOMY SYNDROME, NOT ELSEWHERE CLASSIFIED 11/24/[address] active 7 SPONDYLOSIS WITHOUT MYELOPATHY OR RADICULOPATHY, CERVICAL REGION 11/24/[address] active 8 UNILATERAL PRIMARY OSTEOARTHRITIS, RIGHT HIP 11/24/[address] active 9 UNILATERAL PRIMARY OSTEOARTHRITIS, RIGHT KNEE 11/24/[address] active Reason for Referral No Reasons for Referral Entered Social History Social History Observation Description Start Date End Date Code Code System Current Smoking Status Tobacco smoking consumption unknown 615014273 SNOMED CT Sex Assigned At Female 1935 37273-3 LOINC Gender Identity Sexual Orientation Vital Signs Code Code System Vitals Name Values and Units Timing Information 18148-4 LOINC Pain Level Value=0.0 12/06/2023 9279-1 [facility] Respiratory Rate Value=16.0 Units=/m in 12/06/2023 8462-4 [facility] Blood Pressure-Diastolic Value=79 Un its=mmHg 12/06/2023 8480-6 [facility] Blood Pressure-Systolic Oqwdj=167 Un its=mmHg 12/06/2023 8310-5 [facility] Body Temperature Value=97.5 Units= F 12/06/2023 8867-4 [facility] Heart rate Value=77.0 Units=/min 21875-4 [facility] O2 % BldC Oximetry Value=94.0 Units= % 12/06/2023 71193-2 [facility] Weight Ccdtb=023.8 Units=Lbs 8302-2 [facility] Height Value=58.0 Units=Inches 11/25/2023
[2025-07-09 14:00] LABS: Alanine Aminotransferase 16 U/L (0-31); Albumin Level 4.4 g/dL (3.5-5.0); Alkaline Phosphatase 99 U/L (39-117); Anion Gap 11 (12-20); Aspartate Amino Transferase 22 U/L (5-31); Blood Urea Nitrogen 28 mg/dL (9-16); Calcium 9.8 mg/dL (8.4-10.2); Carbon Dioxide 27 mmol/L (22-29); Chloride 108 mmol/L (96-108); Estimated Glomerular Filt Rate > 60; Potassium 4.3 mmol/L (3.3-5.1); Sodium 142 mmol/L (135-145); Thyroid Stimulating Hormone 0.13 uIU/mL (0.32-4.0); Total Protein 7.6 g/dL (6.5-8.0)
[2025-07-09 14:31] LABS: Folate 10.2 ng/mL (> or = 4.0); Vitamin B12 311 pg/mL (200-900)
== END 2025-07-09 10:49 | disposition home or self-care (01) ==
LOC: HO.10HDL 10:48
PROVIDERS: Visit Provider Internal Medicine
DX: I10 Essential (primary) hypertension (principal); F02.83 Dementia in other diseases classified elsewhere, unspecified severity, with mood disturbance; F32.5 Major depressive disorder, single episode, in full remission; E03.9 Hypothyroidism, unspecified; H54.42A5 Blindness left eye category 5, normal vision right eye
CPT/HCPCS: 20610; 36415; 80053; 82607; 82746; 84443; 85025; 99212; J0665; J1100; J2003

== ENCOUNTER 2025-07-09 12:46 | Outpatient (AMB) | payer MEDICARE, SELFPAY ==
--- NOTE | 2025-07-09 12:48 | MHC.OFFVIS ---
Intake Visit Reasons: New Prob: left knee pain Intake Note: Lennie is an 89 year old female who presents today for a new problem visit for evaluation of left knee pain. Denies any recent injury. Patient reports she has pain that has increased in the left knee esepcially with ambulation of stairs and gait inititation. She is interested in a left knee injection today if possible. Allergies No Known Allergies Allergy (Verified 07/09/25 12:59) Medication List - Last Reconciled 07/09/25 by Mary Best PA-C amlodipine 1 tab PO DAILY 30 days cane As directed celecoxib (Celebrex) 200 mg PO DAILY duloxetine (Cymbalta) 60 mg PO BID ergocalciferol (vitamin D2) (Vitamin D2) PO gabapentin 300 mg PO TID 30 days levothyroxine 1 tab PO DAILY 30 days lisinopril-hydrochlorothiazide 20-25 mg tabs PO DAILY HPI HPI New Prob: left knee pain: Details: 89-year-old female presents today for left knee pain. She has difficulty with daily activities including prolonged standing stairs and sitting and going to a standing position. She has had injections in the right knee in the past with good relief. [facility] Medical History Chronic pain syndrome Spondylosis of cervical joint without myelopathy Cervicalgia Postlaminectomy syndrome of cervical region Chronic neck pain Hypertension Surgical History H/O neck surgery Social History Household Members: Unknown / Unable to assess Housing: House Do you presently have visiting nurse or other home services: No Alcohol intake: never Comment: sitter Patient Tobacco Use Status: Never used Tobacco Advance Directives Date on File: 01/22/21 service: No Current occupational status: retired Sexual orientation: Straight/Heterosexual Review of Systems Const All systems reviewed & are unremarkable except as noted in HPI and below Physical Exam Const General: cooperative and no acute distress Orientation/consciousness: patient oriented x3 Resp Effort & Inspection: normal respiratory effort and able to speak in complete sentences Cardio Peripheral pulses: Peripheral pulses 2+ throughout Neuro General: patient oriented x3 Extrem Other: Left knee normal to inspection no joint effusion present. Full range of motion with crepitus and tenderness along the medial joint line. Calf supple nontender neurovascularly intact. Office Procedures AMB Joint Injection/Aspiration Joint Injection/Aspiration Primary Site: left knee Prep: site was prepped using aseptic technique, ethochloride spray was applied and injection warnings given Injected: 40 mg of (depo ), with 3 mL of, 1% plain lidocaine, 0.25% bupivacaine and in the joint Approach Used: anterolateral Procedure: The patient tolerated the procedure well and there was some relief with the local anesthesia Coding 44577 - Glenohumeral/Tronchanteric Bursa/Intraarticular Procedure code (CPT) selection complete Results Reviewed Results Reviewed: Xrays were obtained in the office today and personally reviewed by me of the left knee show varus deformity with severe oA Assessment & Plan Assessment & Plan (1) Osteoarthritis of left knee: Code(s): M17.12 - Unilateral primary osteoarthritis, left knee Category: Medical Plan: We discussed options today, which include steroid injection. The patient did consent to move forward with the injection, which was tolerated well.? I recommended rest, ice and elevation and OTC antiinflammatories prn for discomfort. If symptoms persist over the next 6-8 weeks, they will contact our office, otherwise, prn Orders: Orders XR knee LT 3V Today M25.562 - Pain in left knee Coding Level of Care Code Est Pt Level 3 (91212) Complex EM visit Add On G2211 Diagnoses Osteoarthritis of left knee M17.12 CPT Codes Coding - Joint 7: 31150 - Glenohumeral/Tronchanteric Bursa/Intraarticular ([id number])
== END 2025-07-09 14:19 | disposition home or self-care (01) ==
PROVIDERS: PCP Internal Medicine; Visit Provider Physician Assistant
DX: M17.12 Unilateral primary osteoarthritis, left knee (principal)
CPT/HCPCS: 20610; 99213

== ENCOUNTER 2025-07-09 12:56 | Outpatient (REF) | payer MEDICARE, SELFPAY ==
--- NOTE | ~2025-07-09 | XR_ITS ---
EXAMINATION: XR KNEE, LEFT CLINICAL INFORMATION: M25.562 - Pain in left knee COMPARISON: None available. TECHNIQUE: AP, sunrise, and lateral views of the left knee. FINDINGS: There is probably a joint effusion. There is severe narrowing of the medial compartment with subchondral sclerosis and moderate medial subluxation of distal femur in the knee joint. There are tricompartmental marginal osteophytes. XR/XR knee LT 3V IMPRESSION: Severe osteoarthritis, probably joint effusion. Electronically signed by: Yogesh Sandoval MD 07/09/2025 01:17 PM EDT
== END 2025-07-09 12:57 | disposition home or self-care (01) ==
LOC: HO.HOSX 12:56
PROVIDERS: Visit Provider Physician Assistant
DX: M25.562 Pain in left knee (principal)
CPT/HCPCS: 73562

== ENCOUNTER → 2025-07-09 13:01 | Outpatient (BNV) | payer MEDICARE, SELFPAY | PROVIDERS: Visit Provider Radiology Diagnostic Radiology | DX: M17.12 Unilateral primary osteoarthritis, left knee (principal) | CPT/HCPCS: 73562 ==